=== PATIENT | male | born 1945 | race Caucasian/White ===

== ENCOUNTER 2021-07-26 17:08 | Inpatient (IN) ==
[2021-07-26 17:46] LABS: POC Blood Urea Nitrogen 93 mg/dL (6-20); POC CO2 18 mmol/L (22-30); POC Calcium, Ionized 1.18 mmEq/L (1.16-1.32); POC Chloride 107 mEq/L (96-108); POC Creatinine 5.4 mg/dL (0.6-1.2); POC Glucose, Random 152 mg/dL (70-105); POC Hematocrit 30 % (41-55); POC Potassium 5.1 mEql/L (3.3-5.1); POC Sodium 138 mEq/L (133-145)
[2021-07-26] MEDS ORDERED: IPRATROPIUM/ALBUTEROL 3 ML AMPUL.NEB NEB ONE (18:12)
[2021-07-26] MEDS ORDERED: methylPREDNISolone SOD SUCC 125 MG/2 ML VIAL IV ONE (18:12)
[2021-07-26 18:17] LABS: Basophils # (Auto) 0.04 K/mcL (0.00-0.30); Basophils % (Auto) 0.5 % (0.0-2.0); Eosinophils # (Auto) 0.22 K/mcL (0.00-0.70); Eosinophils % (Auto) 2.7 % (0.0-7.0); Hematocrit 28.4 % (40.1-51.0); Hemoglobin 9.2 g/dL (13.7-17.5); Lymphocytes # (Auto) 0.88 K/mcL (1.50-4.80); Lymphocytes % (Auto) 10.9 % (15.5-49.0); Mean Cell Volume 84.3 fL (80.0-100.0); Mean Corpuscular HGB Conc 32.4 g/dL (31.0-36.0); Mean Platelet Volume 10.3 fL (7.4-10.4); Monocytes # (Auto) 0.73 K/mcL (0.10-0.90); Monocytes % (Auto) 9.1 % (1.0-12.0); Neutrophils % (Auto) 76.8 % (38.0-78.0); Platelet Count 189 K/mcL (140-440); RBC 3.37 M/mcL (4.63-6.08); Red Cell Distribution Width 21.1 % (11.5-14.5); WBC 8.1 K/mcL (4.5-11.0)
[2021-07-26 18:54] LABS: ALT/SGPT 120 U/L (<40); AST/SGOT 96 U/L (<40); Albumin 3.8 gm/dL (3.2-5.2); Albumin/Globulin Ratio 1.4 (1.0-2.3); Alkaline Phosphatase 74 U/L (39-117); Bilirubin,Total 0.5 mg/dL (0.1-1.0); Blood Urea Nitrogen 72 mg/dL (8-23); Calcium 8.7 mg/dL (8.6-10.4); Carbon Dioxide 17 mmol/L (22-30); Chloride 104 mmol/L (96-108); Globulin 2.7 gm/dL (2.2-3.7); Glomerular Filtration Rate 11; Glucose 152 mg/dL (70-105)
[2021-07-26 19:00] LABS: Prothrombin Time 32.8 sec (11.9-14.5)
--- NOTE | 2021-07-26 20:35 | Emergency Department Note ---
HPI <Tamiko Maxwell PA-C - Last Filed: 07/26/21 21:41> General Chief complaint: Shortness of Breath/Dyspnea Stated complaint: sob Time Seen by Provider: 07/26/21 17:14 Source: patient Mode of arrival: ambulatory Limitations: no limitations History of Present Illness HPI Narrative: Narrative: This patient with a history of COPD who has been feeling progressively short of breath for the last week. He did see his primary care provider today who requested he come to the emergency department. Patient was noted to be quite tachypneic with mildly decreased O2 saturations in the low 90s. Patient reports he has not felt febrile or chilled. He is not any nausea vomiting. Denies stool changes. He did have some labs drawn at his regular doctor's office and reports there were some problems with his kidneys, but he is not sure about specifics. He does take Coumadin secondary to atrial fibrillation. Denies any prior cardiac history to include myocardial infarction. He was formerly a smoker and has been told by his regular doctor that he will likely need oxygen soon. At this time he is not on oxygen. He has previously had an echocardiogram and cardiac stress test in the last 5 years. He denies any prior history of congestive heart failure. He does take furosemide which he believes is for leg swelling. Related Data Home Medications Medication Instructions Recorded Confirmed lisinopril 40 mg tablet 40 mg PO QDAY 07/19/21 07/27/21 omeprazole 40 mg capsule,delayed 40 mg PO QDAY 07/19/21 07/27/21 release amlodipine 10 mg tablet 10 mg PO QDAY 07/26/21 07/27/21 ascorbate calcium (vitamin C) 500 500 mg PO QDAY 07/26/21 07/27/21 mg tablet fluticasone 250 mcg-salmeterol 50 1 inh INHALATION BID PRN 07/26/21 07/27/21 mcg/dose blistr powdr for inhalation (Advair Diskus) lorazepam 0.5 mg tablet 0.25 - 0.5 mg PO PRN PRN 07/26/21 07/27/21 magnesium oxide,aspartate,citr 400 mg PO QDAY 07/26/21 07/27/21 (Triple Magnesium Complex) multivitamin with minerals-folic 0.4 tab PO QDAY 07/26/21 07/27/21 acid 0.4 mg tablet Previous Rx's Medication Instructions Recorded clonidine HCl 0.1 mg tablet 0.1 mg PO BID #180 tab 12/04/20 finasteride 5 mg tablet 5 mg PO QDAY #90 tab 12/04/20 furosemide 40 mg tablet 40 mg PO QAM #90 tab 12/04/20 montelukast 10 mg tablet 10 mg PO QDAY #90 tab 12/04/20 (Singulair) potassium chloride 10 mEq 10 meq PO BID #180 tab 12/04/20 tablet,extended release (Klor-Con) tamsulosin 0.4 mg capsule 0.4 mg PO QHS #90 cap 12/04/20 fluticasone propionate 50 2 spray INTRANASAL QDAY #16 g 01/09/21 mcg/actuation nasal spray,suspension (Allergy Relief (fluticasone)) zolpidem 5 mg tablet 5 mg PO QHS #90 tab 04/04/21 metoprolol succinate 50 mg capsule 50 mg PO BID #60 ea 04/23/21 sprinkle, ext. release 24 hr warfarin 4 mg tablet 4 mg PO QDAY #30 tab 04/23/21 Allergies Allergy/AdvReac Type Severity Reaction Status Date / Time peanut Allergy Severe Swelling Verified 07/26/21 23:06 of Lip/Tongue/Throat Penicillins Allergy Severe angioedema Verified 07/26/21 23:06 bupropion [From Wellbutrin] Allergy Intermediate Hives Verified 07/26/21 23:06 ipratropium [From Atrovent] Allergy Unknown Shortness Verified 07/26/21 23:06 of Breath alcohol AdvReac Unknown Addiction; Verified 07/26/21 23:06 per patient "I'm an alcoholic for [employer] s[employer]." Review of Systems <Tamiko Maxwell PA-C - Last Filed: 07/26/21 21:41> ROS ROS Narrative: Narrative: Pertinent positives and negatives as noted in HPI. All other systems reviewed and negative. PFSH <Tamiko Maxwell PA-C - Last Filed: 07/26/21 21:41> Narrative Patient History Narrative: Narrative: Medical/Surgical/Family History All Active Problems (Updated 07/26/21 @ 22:45 by Steven Baeza MD) Acute bronchitis (Chronic) Foreign body in ear (Chronic) Allergic conjunctivitis (Chronic) COPD (chronic obstructive pulmonary disease) (Chronic) Sleep apnea (Chronic) Asthma (Chronic) DDD (degenerative disc disease) (Chronic) SBO (small bowel obstruction) (Chronic) Hypertension (Chronic) Carpal tunnel syndrome (Chronic) Hyperlipidemia (Chronic) Pneumonia (Chronic) Adenomatous colon polyp (Chronic) Ejection fraction < 50% (Chronic) 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) History of colonoscopy (Chronic ~04/19/13) Joint pain (Chronic) Stiffness in joint (Chronic) Encounter for long-term (current) use of other medications (Chronic) Mitral regurgitation (Chronic) Atrial fibrillation (Chronic) Pharyngitis (Chronic) Varicose veins of both lower extremities (Acute) Venous stasis ulcer limited to breakdown of skin with varicose veins (Acute) Lacrimal gland inflammation (Acute) Asthma with exacerbation (Acute) Initial Medicare annual wellness visit (Acute) Nausea (Acute) Asymptomatic peripheral vascular disease (Acute) Sinusitis, chronic (Acute) Chest pain due to coronary artery disease (Acute) Bilateral foot pain (Acute) Pedal edema (Acute) Seasonal allergies (Acute) Acute bronchitis (Acute) Insomnia (Acute) Plantar fasciitis of right foot (Acute) Nocturia associated with benign prostatic hyperplasia (Acute) Microscopic hematuria (Acute) Bladder neoplasm (Acute) Bladder mass (Acute) Chronic anticoagulation (Acute) Bladder neoplasm (Acute) Hypoxia (Acute) Acute renal failure (Acute) COPD with acute exacerbation (Acute) Renal failure (ARF), acute on chronic (Acute) Medication induced coagulopathy (Acute) Hydronephrosis due to obstructive malignant bladder cancer (Acute) Medical History Acute bronchitis Adenomatous colon polyp Allergic dermatitis Allergic rhinitis Asthma Atrial fibrillation Bundle branch block, right Carpal tunnel syndrome COPD (chronic obstructive pulmonary disease) DDD (degenerative disc disease) DDD (degenerative disc disease), lumbar Diverticulosis Ejection fraction < 50% Encounter for long-term (current) use of other medications Encounter for long-term (current) use of other medications Erectile dysfunction Hematuria Hyperlipidemia Hyperlipidemia Hypertension Joint pain Mitral regurgitation Moderate mitral regurgitation Obesity, morbid Plantar fasciitis of right foot Pneumonia PTSD (post-traumatic stress disorder) PVD (peripheral vascular disease) SBO (small bowel obstruction) Sinus bradycardia Sinusitis, acute Sinusitis, chronic Sleep apnea Spine pain, cervical Stiffness in joint Surgical History Coronary atherosclerosis of bypass graft History of colonoscopy (~04/19/13) History of gastric bypass (~12/2013) Family History Father COPD (chronic obstructive pulmonary disease) Other HTN (hypertension) Social History Smoking Status: Former smoker Alcohol Intake Frequency: former alcohol drinker Substance Use: does not use Exam <Tamiko Maxwell PA-C - Last Filed: 07/26/21 21:41> Narrative Narrative: Narrative: Vital signs noted General: mild distress. Skin: Warm. Dry. No rash. Normal color. Eyes: PERRL. EOMI. Mouth: Membranes moist. Normal inspection. Neck: Good ROM. No meningeal signs. Supple. Cardiovascular: Irregularly irregular rate. No murmur. Respiratory: Tachypnea. Breath sounds diminished throughout. Gastrointestinal: Abdomen soft. No tenderness. No distention. Normal bowel sounds. No rebound tenderness or guarding. Back: Normal inspection. No CVA tenderness. No midline tenderness. Extremities: No tenderness. No swelling. No erythema. No edema. Good peripheral pulses x 4 Neurological: No focal neurological deficits observed. Alert. Oriented x 3 General Limitations: no limitations Course <Tamiko Maxwell PA-C - Last Filed: 07/26/21 21:41> Course Course Narrative: An IV is established and the patient is medicated with IV Solu-Medrol for COPD exacerbation. He is also given 3 sequential DuoNeb treatments. He feels improved after this and his tachypnea has markedly improved. Labs are ordered and reviewed. Patient is noted to have a marked elevation in creatinine of 5.4. Last month creatinine was 1.7. BUN is currently 89 and was previously 23. Troponin is elevated at 0.04. BUN is 4498. White count is unremarkable. EKG shows atrial fibrillation with right bundle branch block. Rate is 77. QRS complexes are wide and irregular intervals. Chest x-ray shows small right pleural effusion. In review of the patient's medical history he does recall that he is following with urology due to urinary complications with an identified bladder mass. He did have cystoscopy last month which identified 2 masses in the left lateral wall of the bladder. These are encroaching on the left outlet of the ureter as well as the bladder neck. He was scheduled to have surgery for tumor removal but that procedure was delayed due to the surgeon becoming temporarily unavailable. I did discuss the patient with the hospitalist as well as nephrology who feel that the patient will need emergent urology services for tumor removal as it is now causing obstruction and renal failure. Writing Center Director Dr. Baeza felt that the patient would need access to nephrology services should his renal function continued to decline. Patient is pending transfer. I did speak with the urologist through [facility] in [place] who did not feel that the patient warranted urologic services. He did feel that any obstructive process could be mitigated with nephrostomy tubes if necessary. CT of the abdomen pelvis without contrast is pending. Patient signed out to attending physician. Please see that note for disposition and discharge Vital Signs Vital signs: Vital Signs Temperature 97.8 F 07/26/21 17:09 Pulse Rate 94 H 07/26/21 17:09 Respiratory Rate 24 H 07/26/21 17:09 Blood Pressure 109/67 07/26/21 17:09 Pulse Oximetry (%) 94 07/26/21 17:09 Temperature 97.4 F 07/27/21 04:07 Pulse Rate 89 07/27/21 04:07 Respiratory Rate 20 07/27/21 04:07 Blood Pressure 82/60 07/27/21 04:07 Pulse Oximetry (%) 93 07/27/21 04:07 MDM <Tamiko Maxwell PA-C - Last Filed: 07/26/21 21:41> MDM Narrative Medical decision making narrative: Narrative: Lab Data Result diagrams: 07/26/21 17:31 07/26/21 17:31 Labs: Lab Results 07/26/21 07/26/21 07/26/21 Range/Units 17:31 17:31 17:31 WBC 8.1 (4.5-11.0) K/mcL RBC 3.37 L (4.63-6.08) M/mcL Hgb 9.2 L (13.7-17.5) g/dL Hct 28.4 L (40.1-51.0) % POC Hct 30 L (41-55) % MCV 84.3 (80.0-100.0) fL MCH 27.3 (26.0-34.0) pg MCHC 32.4 (31.0-36.0) g/dL RDW 21.1 H (11.5-14.5) % Plt Count 189 (140-440) K/mcL MPV 10.3 (7.4-10.4) fL Neut % (Auto) 76.8 (38.0-78.0) % Lymph % (Auto) 10.9 L (15.5-49.0) % [place] % (Auto) 9.1 (1.0-12.0) % Eos % (Auto) 2.7 (0.0-7.0) % Baso % (Auto) 0.5 (0.0-2.0) % Lymph # (Auto) 0.88 L (1.50-4.80) K/mcL [place] # (Auto) 0.73 (0.10-0.90) K/mcL Eos # (Auto) 0.22 (0.00-0.70) K/mcL Baso # (Auto) 0.04 (0.00-0.30) K/mcL Absolute Neutrophils 6.18 (1.80-8.00) K/mcL PT (11.9-14.5) sec INR (0.9-1.1) POC Sodium 138 (133-145) mEq/L Sodium (133-145) mmol/L POC Potassium 5.1 (3.3-5.1) mEql/L Potassium (3.3-5.1) mmol/L POC Chloride 107 (96-108) mEq/L Chloride (96-108) mmol/L Carbon Dioxide (22-30) mmol/L POC Total CO2 18 L (22-30) mmol/L Anion Gap (8.0-16.0) POC BUN 93 H (6-20) mg/dL BUN (8-23) mg/dL Creatinine (0.7-1.2) mg/dL POC Creatinine 5.4 H* (0.6-1.2) mg/dL GFR Calculation Glucose (70-105) mg/dL POC Glucose 152 H (70-105) mg/dL Calcium (8.6-10.4) mg/dL POC WB Ioniz Calcium 1.18 (1.16-1.32) mmEq/L Total Bilirubin (0.1-1.0) mg/dL AST (<40) U/L ALT (<40) U/L Alkaline Phosphatase (39-117) U/L Troponin T 0.04 H* (<0.03) ng/mL NT-Pro-B Natriuret Pep 4498.0 H (<450.0) pg/mL Total Protein (5.9-8.4) gm/dL Albumin (3.2-5.2) gm/dL Globulin (2.2-3.7) gm/dL Albumin/Globulin Ratio (1.0-2.3) Urine Color Urine Appearance (Clear) Urine pH (5.0-9.0) Ur Specific [place] (1.000-1.035) Urine Protein (Negative) mg/dL Urine Glucose (UA) (Negative) mg/dL Urine Ketones (Negative) mg/dL Urine Occult Blood (Negative) mg/dL Urine Nitrate (Negative) Urine Bilirubin (Negative) mg/dL Urine Urobilinogen mg/dL Ur Leukocyte Esterase (Negative) /uL Urine RBC (0-3) /hpf Urine WBC (0-4) /hpf Ur Squamous Epith Cells (0-4) /hpf Urine Bacteria (0) /hpf Hyaline Casts (0-2) /lph Urine Mucus (None) /hpf Ur Culture Indicated? 07/26/21 07/26/21 07/26/21 Range/Units 17:31 17:31 21:20 WBC (4.5-11.0) K/mcL RBC (4.63-6.08) M/mcL Hgb (13.7-17.5) g/dL Hct (40.1-51.0) % POC Hct (41-55) % MCV (80.0-100.0) fL MCH (26.0-34.0) pg MCHC (31.0-36.0) g/dL RDW (11.5-14.5) % Plt Count (140-440) K/mcL MPV (7.4-10.4) fL Neut % (Auto) (38.0-78.0) % Lymph % (Auto) (15.5-49.0) % [place] % (Auto) (1.0-12.0) % Eos % (Auto) (0.0-7.0) % Baso % (Auto) (0.0-2.0) % Lymph # (Auto) (1.50-4.80) K/mcL [place] # (Auto) (0.10-0.90) K/mcL Eos # (Auto) (0.00-0.70) K/mcL Baso # (Auto) (0.00-0.30) K/mcL Absolute Neutrophils (1.80-8.00) K/mcL PT 32.8 H (11.9-14.5) sec INR 3.0 H (0.9-1.1) POC Sodium (133-145) mEq/L Sodium 137 (133-145) mmol/L POC Potassium (3.3-5.1) mEql/L Potassium 5.1 (3.3-5.1) mmol/L POC Chloride (96-108) mEq/L Chloride 104 (96-108) mmol/L Carbon Dioxide 17 L (22-30) mmol/L POC Total CO2 (22-30) mmol/L Anion Gap 16.0 (8.0-16.0) POC BUN (6-20) mg/dL BUN 72 H (8-23) mg/dL Creatinine 4.7 H (0.7-1.2) mg/dL POC Creatinine (0.6-1.2) mg/dL GFR Calculation 11 Glucose 152 H (70-105) mg/dL POC Glucose (70-105) mg/dL Calcium 8.7 (8.6-10.4) mg/dL POC WB Ioniz Calcium (1.16-1.32) mmEq/L Total Bilirubin 0.5 (0.1-1.0) mg/dL AST 96 H (<40) U/L ALT 120 H (<40) U/L Alkaline Phosphatase 74 (39-117) U/L Troponin T (<0.03) ng/mL NT-Pro-B Natriuret Pep (<450.0) pg/mL Total Protein 6.5 (5.9-8.4) gm/dL Albumin 3.8 (3.2-5.2) gm/dL Globulin 2.7 (2.2-3.7) gm/dL Albumin/Globulin Ratio 1.4 (1.0-2.3) Urine Color Yellow Urine Appearance Hazy A (Clear) Urine pH 5.0 (5.0-9.0) Ur Specific [place] 1.012 (1.000-1.035) Urine Protein Negative (Negative) mg/dL Urine Glucose (UA) Negative (Negative) mg/dL Urine Ketones Negative (Negative) mg/dL Urine Occult Blood 0.20 (Negative) mg/dL Urine Nitrate Negative (Negative) Urine Bilirubin Negative (Negative) mg/dL Urine Urobilinogen Negative mg/dL Ur Leukocyte Esterase Negative (Negative) /uL Urine RBC 72 H (0-3) /hpf Urine WBC 1 (0-4) /hpf Ur Squamous Epith Cells < 1 (0-4) /hpf Urine Bacteria None (0) /hpf Hyaline Casts 7 H (0-2) /lph Urine Mucus Few A (None) /hpf Ur Culture Indicated? No ED POC Tests ED POC Tests: SARIKA - SARS Antigen Negative Discharge Plan Patient/Caregiver Discharge Instructions Pt seen by FAST FOOD TEAM MEMBER/PA only: No Clinical Impression: Acute renal failure, COPD with acute exacerbation Patient Disposition: Xfer As Inpt ([facility]) Discharge Date/Time: 07/26/21 22:55
--- NOTE | 2021-07-26 21:55 | Nephrology Consult Note ---
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 Chief Complaint: [SOB] This patient was previously evaluated by [facility] urology as outlined below: Abner is a 76-year-old male with a remote history of smoking. He quit 25 years ago. He has resultant COPD. He also has a history of atrial fibrillation for which he is chronically anticoagulated with warfarin. 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 Cystoscopy was performed in the office today which confirmed this finding. 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 We discussed the need to go to the operating room for transurethral section of bladder tumor with instillation of gemcitabine 2 g.. For this procedure he would need to stop his anticoagulation a minimum of 4 to 5 days prior to the procedure. He would also need to be off of it for at least 4 to 5 days after the procedure. During the procedure he would go to the operating room and under general anesthesia I would look through the urethra into the bladder. He may need urethral dilation. We would then remove the tumor seen at cystoscopy. This is done with a small electric loop where we both remove and cauterize time he may need to have a Pérez catheter in place for period of time procedure. Risks include bleeding, infection, damage to the urethra and to the bladder, possible bladder perforation, need for further treatment and/or surgery, possible need for Pérez catheter, postoperative urgency, frequency and hematuria, as well as small risks of heart attack, stroke and . There are also increased risk of blood clots due to stopping his coagulation. There are also risk to anesthesia that he will discuss separately with the anesthesia provider prior to the procedure. The concern is the rapid deterioration in GFR as shown below: Serum Creatinine The change in GFR is due to the development of BILATERAL OBSTRUCTION or a decline in the function of the non-obstructed kidney due to CHF/high dose Lisinopril/ NSAIDs. IT TURNS OUT, NEITHER CT SHOWS HYDRONEPHROSIS SO I SUSPECT ADVERSE EFFECT OF ACEi DEHYDRATION, and occasional NSAID use. He also has a mild metabolic acidosis with AG = 16 and K 5.1 mEq/L. Laboratory Tests 07/26/21 17:31 WBC 8.1 Hgb 9.2 L Hct 28.4 L MCV 84.3 Plt Count 189 Eos % (Auto) 2.7 07/26/21 17:31 PT 32.8 H INR 3.0 H 07/26/21 07/26/21 17:31 17:31 Sodium 137 Potassium 5.1 Chloride 104 Carbon Dioxide 17 L BUN 72 H Creatinine 4.7 H GFR Calculation 11 Glucose 152 H Calcium 8.7 ALT 120 H NT-Pro-B Natriuret Pep 4498.0 H Albumin 3.8 07/26/21 14:07 Urine Color Yellow Urine Clarity Clear Urine pH 5.5 Ur Specific [place] 1.020 Urine Protein Negative Urine Ketones Negative Urine Blood Moderate A Urine Nitrate Negative Ur Leukocyte Esterase Negative Urine RBC 25-50 A Urine WBC 0-5 A Ur Epithelial Cells Few Urine Bacteria Occ A Urine Mucus Trace Ur Oval Fat Bodies 0-5 A Urine Creatinine 200 Protein/Creatinin Ratio Normal Urine Glucose Negative Vital Signs Temp Pulse Resp BP Pulse Ox 07/26/21 22:02 88 95 07/26/21 22:00 89 130/73 93 07/26/21 21:31 94 H 119/70 95 07/26/21 21:28 95 H 176/66 100 07/26/21 21:07 96 H 23 H 94 07/26/21 21:01 94 H 18 178/142 93 07/26/21 20:52 94 H 26 H 93 07/26/21 20:48 94 H 24 H 152/98 93 07/26/21 19:39 94 H 100 07/26/21 19:31 98 H 98/57 95 07/26/21 19:05 68 90/44 100 07/26/21 19:02 64 82/52 100 07/26/21 18:32 69 124/106 99 07/26/21 18:03 72 129/102 94 07/26/21 17:41 85 102/58 95 07/26/21 17:37 81 102/58 100 07/26/21 17:19 80 109/67 100 07/26/21 17:09 36.6 C 94 H 24 H 109/67 94 Intake and Output 07/26/21 07/26/21 07/27/21 13:59 21:59 05:59 Output Total 350 Balance -350 Output: Void Amount 350 Other: Weight 127.006 kg Patient Weight 07/27/21 05:59 Weight 127.006 kg I'm told the CT failed to demonstrate bilateral hydro. Therefore admission for IV hydration, withdrawal of ACEi and avoidance of NSAIDs Correction of coagulopathy If there is unilateral hydro as seen previously then urologic or IR intervention is indicated. Laboratory Tests 07/27/21 07/27/21 06:07 06:07 INR 2.7 H Sodium 134 Potassium 5.6 H Chloride 101 Carbon Dioxide 17 L Anion Gap 16.0 BUN 84 H Creatinine 4.2 H GFR Calculation 13 Glucose 172 H Uric Acid 17.7 H Calcium 9.0 Phosphorus 4.6 H Magnesium 2.6 H Lactate Dehydrogenase 231 H Chief complaint: SOB Reason for consult: ARF on CKD 3 cc:: CC: Review of Systems All systems: reviewed and no additional remarkable complaints except as stated Constitutional Constitutional: Present snoring; Absent chills, fatigue, fever(s) or headache(s) EENT Eyes: Present as per HPI Cardiovascular Cardiovascular: Present leg edema; Absent irregular heart rhythm or radiating jaw, neck or arm pain Respiratory Respiratory: Present cough Gastrointestinal Gastrointestinal: Absent abdominal pain, change in bowel habits, constipation or loose stools Genitourinary Genitourinary: hematuria Musculoskeletal Musculoskeletal: Absent muscle cramps or muscle weakness Integumentary Integumentary: Present unusual bruising Neurological Neurological: Present as per HPI; Absent abnormal speech, confusion, dizziness, frequent falls or headache(s) Psychiatric Psychiatric: Present as per HPI; Absent anxiety, auditory hallucinations or behavioral changes Endocrine Endocrine: Present fatigue; Absent polydipsia Hematologic/Lymphatic Hematologic/Lymphatic: Present easy bruising Allergic/Immunologic Allergic/Immunologic: Present as per HPI PFSH PFSH All Active Problems (Updated 07/27/21 @ 08:50 by Steven Baeza MD) Medication induced coagulopathy (Acute) Renal failure (ARF), acute on chronic (Acute) Hypertension (Chronic) Bladder mass (Acute) Atrial fibrillation (Chronic) Acute bronchitis (Chronic) Foreign body in ear (Chronic) Allergic conjunctivitis (Chronic) COPD (chronic obstructive pulmonary disease) (Chronic) Sleep apnea (Chronic) Asthma (Chronic) DDD (degenerative disc disease) (Chronic) SBO (small bowel obstruction) (Chronic) Carpal tunnel syndrome (Chronic) Hyperlipidemia (Chronic) Pneumonia (Chronic) Adenomatous colon polyp (Chronic) Ejection fraction < 50% (Chronic) 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) History of colonoscopy (Chronic ~04/19/13) Joint pain (Chronic) Stiffness in joint (Chronic) Encounter for long-term (current) use of other medications (Chronic) Mitral regurgitation (Chronic) Pharyngitis (Chronic) Varicose veins of both lower extremities (Acute) Venous stasis ulcer limited to breakdown of skin with varicose veins (Acute) Lacrimal gland inflammation (Acute) Asthma with exacerbation (Acute) Initial Medicare annual wellness visit (Acute) Nausea (Acute) Asymptomatic peripheral vascular disease (Acute) Sinusitis, chronic (Acute) Chest pain due to coronary artery disease (Acute) Bilateral foot pain (Acute) Pedal edema (Acute) Seasonal allergies (Acute) Acute bronchitis (Acute) Insomnia (Acute) Plantar fasciitis of right foot (Acute) Nocturia associated with benign prostatic hyperplasia (Acute) Microscopic hematuria (Acute) Bladder neoplasm (Acute) Chronic anticoagulation (Acute) Bladder neoplasm (Acute) Hypoxia (Acute) Acute renal failure (Acute) COPD with acute exacerbation (Acute) Medical History Acute bronchitis Adenomatous colon polyp Allergic dermatitis Allergic rhinitis Asthma Atrial fibrillation Bundle branch block, right Carpal tunnel syndrome COPD (chronic obstructive pulmonary disease) DDD (degenerative disc disease) DDD (degenerative disc disease), lumbar Diverticulosis Ejection fraction < 50% Encounter for long-term (current) use of other medications Encounter for long-term (current) use of other medications Erectile dysfunction Hematuria Hyperlipidemia Hyperlipidemia Hypertension Joint pain Mitral regurgitation Moderate mitral regurgitation Obesity, morbid Plantar fasciitis of right foot Pneumonia PTSD (post-traumatic stress disorder) PVD (peripheral vascular disease) SBO (small bowel obstruction) Sinus bradycardia Sinusitis, acute Sinusitis, chronic Sleep apnea Spine pain, cervical Stiffness in joint Surgical History Coronary atherosclerosis of bypass graft History of colonoscopy (~04/19/13) History of gastric bypass (~12/2013) Family History Father COPD (chronic obstructive pulmonary disease) Other HTN (hypertension) Social History household members: spouse marital status: service: Yes ([employer] - Disabled 10/24) occupational status: disabled other: ETOH recovery Mar 28 1991 physical activity: swimming frequency: 3-4 times per week smoking status start date: 08/24/1959 smoking status stop date: 08/24/94 alcohol intake frequency: former alcohol drinker substance use type: does not use MEDS/ALLERGIES Home Medications and Allergies Home Medications Medication Instructions Recorded Confirmed Type clonidine HCl 0.1 mg tablet 0.1 mg PO BID #180 tab 12/04/20 07/27/21 Rx finasteride 5 mg tablet 5 mg PO QDAY #90 tab 12/04/20 07/27/21 Rx furosemide 40 mg tablet 40 mg PO QAM #90 tab 12/04/20 07/27/21 Rx montelukast 10 mg tablet 10 mg PO QDAY #90 tab 12/04/20 07/27/21 Rx (Singulair) potassium chloride 10 mEq 10 meq PO BID #180 tab 12/04/20 07/27/21 Rx tablet,extended release (Klor-Con) tamsulosin 0.4 mg capsule 0.4 mg PO QHS #90 cap 12/04/20 07/27/21 Rx fluticasone propionate 50 2 spray INTRANASAL QDAY #16 g 01/09/21 07/27/21 Rx mcg/actuation nasal spray,suspension (Allergy Relief (fluticasone)) zolpidem 5 mg tablet 5 mg PO QHS #90 tab 04/04/21 07/27/21 Rx metoprolol succinate 50 mg capsule 50 mg PO BID #60 ea 04/23/21 07/27/21 Rx sprinkle, ext. release 24 hr warfarin 4 mg tablet 4 mg PO QDAY #30 tab 04/23/21 07/27/21 Rx lisinopril 40 mg tablet 40 mg PO QDAY 07/19/21 07/27/21 History omeprazole 40 mg capsule,delayed 40 mg PO QDAY 07/19/21 07/27/21 History release amlodipine 10 mg tablet 10 mg PO QDAY 07/26/21 07/27/21 History ascorbate calcium (vitamin C) 500 500 mg PO QDAY 07/26/21 07/27/21 History mg tablet fluticasone 250 mcg-salmeterol 50 1 inh INHALATION BID PRN 07/26/21 07/27/21 History mcg/dose blistr powdr for inhalation (Advair Diskus) lorazepam 0.5 mg tablet 0.25 - 0.5 mg PO PRN PRN 07/26/21 07/27/21 History magnesium oxide,aspartate,citr 400 mg PO QDAY 07/26/21 07/27/21 History (Triple Magnesium Complex) multivitamin with minerals-folic 0.4 tab PO QDAY 07/26/21 07/27/21 History acid 0.4 mg tablet Allergies Allergy/AdvReac Type Severity Reaction Status Date / Time peanut Allergy Severe Swelling Verified 07/26/21 23:06 of Lip/Tongue/Throat Penicillins Allergy Severe angioedema Verified 07/26/21 23:06 bupropion [From Wellbutrin] Allergy Intermediate Hives Verified 07/26/21 23:06 ipratropium [From Atrovent] Allergy Unknown Shortness Verified 07/26/21 23:06 of Breath alcohol AdvReac Unknown Addiction; Verified 07/26/21 23:06 per patient "I'm an alcoholic for Chriust sakes." Physical Examination Vital Signs Vital signs: Temp Pulse Resp BP Pulse Ox 36.6 C 95 H 23 H 176/66 100 07/26/21 17:09 07/26/21 21:28 07/26/21 21:07 07/26/21 21:28 07/26/21 21:28 General Appearance General appearance: appears started age, obese and chronically ill EENT EENT: PERRL, mucous membranes dry and vision intact Neck Neck: no JVD, no carotid bruit and supple Respiratory Respiratory: clear Cardiovascular Cardiology: no murmurs, no rub, no gallops, edema, regular rhythm and normal S1 Gastrointestinal Gastrointestinal: normoactive bowel sounds and obese Integumentary Integumentary: ecchymotic Neurologic Neurologic: no focal deficit, no asterixis, alert and oriented x3 and CN 3-12 intact Musculoskeletal Musculoskeletal: deformities (buffalo hump and suprascapular adipose collections bilaterally) Psychiatric Psychiatric: mood/affect appropriate Results Lab Results Result Diagrams: 07/27/21 06:07 07/27/21 06:07 Lab results: Most recent lab results Calcium 8.7 mg/dL (8.6-10.4) 07/26/21 17:31 A/P Assessment and plan (1) Renal failure (ARF), acute on chronic: Assessment and plan: Almost surly adverse effect of high dose lisinopril and prn advil, no obstruction. Carry on with no lisinopril, IV hydration with NS and trend labs Status: Acute (2) Bladder mass: Assessment and plan: Surgery after reversal of warfarin Status: Acute (3) Atrial fibrillation: Assessment and plan: Hold anticoagulation till post op Status: Chronic Qualifiers: Atrial fibrillation type: longstanding persistent Qualified Code(s): I48.11 - Longstanding persistent atrial fibrillation (4) Medication induced coagulopathy: Assessment and plan: INR improved 3.4 to 2.7 O/N with holding warfarin Status: Acute (5) Hypertension: Assessment and plan: Over treated. Hold RASSI due to mild hyperkalemia and ARF on CKD 3 Status: Chronic Qualifiers: Hypertension type: essential hypertension Qualified Code(s): I10 - Essential (primary) hypertension Narrative A/P Narrative: 1. No RASSI 2. No NSAIDS 3. Low K diet and no KCl 4. Hydrate with NS 5. Expect 48-72 hours till back to baseline GFR 6. Repeat Echo 7. If GFR fails to improve, do renal U/S to look for URETERAL JETS Time Spent With Patient Time: Total time spent is greater than 50% in coordination of care (as documented) at patient's floor/unit and/or counseling patient: Total time spent with greater than 50% in coordination of care (as documented) at patient's floor/unit and/or counseling patient:: Greater than 35 minutes
--- NOTE | 2021-07-26 22:17 | Internal Med History&Physical ---
HPI History of Present Illness Patient information: Note initiated : 07/26/21 at 10:17 pm Service Date, if different from initiated Date: [] Patient: Mitch Bustillos a 76 y/o M admitted on for sob. Chief Complaint: [] History of present illness: Mr. Bustillos is a 76 year old M with a history of COPD, HTN, CKD, CAD/A. fib on anticoagulation who presents to the ER with increasing shortness of breath worsening over the last week. Patient denies sick contacts. He endorses low- grade fever. Initial work-up in the ER was consistent with creatinine elevation at 5.3 however chest imaging no acute process except for bilateral effusions, nephrology was consulted. Patient also carries a history of bladder cancer and is due for operative intervention on July 31. CT scan abdomen did not reveal obstructive process. Urology at [place] was consulted and advised no active urological intervention at this time. Thereafter nephrology service was consulted and recommended hospitalization for management acute renal failure. Patient received bronchodilators and dose of Solu-Medrol in the ER with resultant improvement in shortness of breath. Subsequently hospitalist service was consulted At the time of my evaluation patient is alert and oriented. He was able to answer most the questions. He denies recent changes in medication except for taking occasional NSAIDs/his regular SASHA inhibitor. He endorses to loss of appetite/inability to function due to progressive malaise/fatigue. Review of systems 10 point review system was performed and is negative except for ones discussed above PFSH PFSH All Active Problems (Updated 07/27/21 @ 08:50 by Steven Baeza MD) Acute bronchitis (Chronic) Foreign body in ear (Chronic) Allergic conjunctivitis (Chronic) COPD (chronic obstructive pulmonary disease) (Chronic) Sleep apnea (Chronic) Asthma (Chronic) DDD (degenerative disc disease) (Chronic) SBO (small bowel obstruction) (Chronic) Hypertension (Chronic) Carpal tunnel syndrome (Chronic) Hyperlipidemia (Chronic) Pneumonia (Chronic) Adenomatous colon polyp (Chronic) Ejection fraction < 50% (Chronic) 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) History of colonoscopy (Chronic ~04/19/13) Joint pain (Chronic) Stiffness in joint (Chronic) Encounter for long-term (current) use of other medications (Chronic) Mitral regurgitation (Chronic) Atrial fibrillation (Chronic) Pharyngitis (Chronic) Varicose veins of both lower extremities (Acute) Venous stasis ulcer limited to breakdown of skin with varicose veins (Acute) Lacrimal gland inflammation (Acute) Asthma with exacerbation (Acute) Initial Medicare annual wellness visit (Acute) Nausea (Acute) Asymptomatic peripheral vascular disease (Acute) Sinusitis, chronic (Acute) Chest pain due to coronary artery disease (Acute) Bilateral foot pain (Acute) Pedal edema (Acute) Seasonal allergies (Acute) Acute bronchitis (Acute) Insomnia (Acute) Plantar fasciitis of right foot (Acute) Nocturia associated with benign prostatic hyperplasia (Acute) Microscopic hematuria (Acute) Bladder neoplasm (Acute) Bladder mass (Acute) Chronic anticoagulation (Acute) Bladder neoplasm (Acute) Hypoxia (Acute) Acute renal failure (Acute) COPD with acute exacerbation (Acute) Renal failure (ARF), acute on chronic (Acute) Medication induced coagulopathy (Acute) Medical History Acute bronchitis Adenomatous colon polyp Allergic dermatitis Allergic rhinitis Asthma Atrial fibrillation Bundle branch block, right Carpal tunnel syndrome COPD (chronic obstructive pulmonary disease) DDD (degenerative disc disease) DDD (degenerative disc disease), lumbar Diverticulosis Ejection fraction < 50% Encounter for long-term (current) use of other medications Encounter for long-term (current) use of other medications Erectile dysfunction Hematuria Hyperlipidemia Hyperlipidemia Hypertension Joint pain Mitral regurgitation Moderate mitral regurgitation Obesity, morbid Plantar fasciitis of right foot Pneumonia PTSD (post-traumatic stress disorder) PVD (peripheral vascular disease) SBO (small bowel obstruction) Sinus bradycardia Sinusitis, acute Sinusitis, chronic Sleep apnea Spine pain, cervical Stiffness in joint Surgical History Coronary atherosclerosis of bypass graft History of colonoscopy (~04/19/13) History of gastric bypass (~12/2013) Family History Father COPD (chronic obstructive pulmonary disease) Other HTN (hypertension) Social History household members: spouse marital status: service: Yes ([employer] - Disabled 10/24) occupational status: disabled other: ETOH recovery Mar 28 1991 physical activity: swimming frequency: 3-4 times per week smoking status start date: 08/24/1959 smoking status stop date: 08/24/94 alcohol intake frequency: former alcohol drinker substance use type: does not use MEDS/ALLERGIES Home Medications and Allergies Home Medications Medication Instructions Recorded Confirmed Type clonidine HCl 0.1 mg tablet 0.1 mg PO BID #180 tab 12/04/20 07/27/21 Rx finasteride 5 mg tablet 5 mg PO QDAY #90 tab 12/04/20 07/27/21 Rx furosemide 40 mg tablet 40 mg PO QAM #90 tab 12/04/20 07/27/21 Rx montelukast 10 mg tablet 10 mg PO QDAY #90 tab 12/04/20 07/27/21 Rx (Singulair) potassium chloride 10 mEq 10 meq PO BID #180 tab 12/04/20 07/27/21 Rx tablet,extended release (Klor-Con) tamsulosin 0.4 mg capsule 0.4 mg PO QHS #90 cap 12/04/20 07/27/21 Rx fluticasone propionate 50 2 spray INTRANASAL QDAY #16 g 01/09/21 07/27/21 Rx mcg/actuation nasal spray,suspension (Allergy Relief (fluticasone)) zolpidem 5 mg tablet 5 mg PO QHS #90 tab 04/04/21 07/27/21 Rx metoprolol succinate 50 mg capsule 50 mg PO BID #60 ea 04/23/21 07/27/21 Rx sprinkle, ext. release 24 hr warfarin 4 mg tablet 4 mg PO QDAY #30 tab 04/23/21 07/27/21 Rx lisinopril 40 mg tablet 40 mg PO QDAY 07/19/21 07/27/21 History omeprazole 40 mg capsule,delayed 40 mg PO QDAY 07/19/21 07/27/21 History release amlodipine 10 mg tablet 10 mg PO QDAY 07/26/21 07/27/21 History ascorbate calcium (vitamin C) 500 500 mg PO QDAY 07/26/21 07/27/21 History mg tablet fluticasone 250 mcg-salmeterol 50 1 inh INHALATION BID PRN 07/26/21 07/27/21 History mcg/dose blistr powdr for inhalation (Advair Diskus) lorazepam 0.5 mg tablet 0.25 - 0.5 mg PO PRN PRN 07/26/21 07/27/21 History magnesium oxide,aspartate,citr 400 mg PO QDAY 07/26/21 07/27/21 History (Triple Magnesium Complex) multivitamin with minerals-folic 0.4 tab PO QDAY 07/26/21 07/27/21 History acid 0.4 mg tablet Allergies Allergy/AdvReac Type Severity Reaction Status Date / Time peanut Allergy Severe Swelling Verified 07/26/21 23:06 of Lip/Tongue/Throat Penicillins Allergy Severe angioedema Verified 07/26/21 23:06 bupropion [From Wellbutrin] Allergy Intermediate Hives Verified 07/26/21 23:06 ipratropium [From Atrovent] Allergy Unknown Shortness Verified 07/26/21 23:06 of Breath alcohol AdvReac Unknown Addiction; Verified 07/26/21 23:06 per patient "I'm an alcoholic for Chriust sakes." EXAM Constitutional Vitals: Temp Pulse Resp BP Pulse Ox 97.8 F 88 23 H 130/73 95 07/26/21 17:09 07/26/21 22:02 07/26/21 21:07 07/26/21 22:00 07/26/21 22:02 Anxious Head normocephalic Oral cavity moist No ear or nose discharge Eye no subconjunctival pallor, movement symmetrical S1-S2 irregular Nonlabored breathing Nondistended nontender abdomen Lower extremity no cyanosis clubbing or joint swelling Skin no suspicious lesion Psych anxious but no hallucination Neuro normal higher function GCS 15 DATA Data Completed and Pending Labs: Labs from last 24 hours 07/26/21 07/26/21 07/26/21 21:20 17:31 17:31 WBC RBC Hgb Hct POC Hct MCV MCH MCHC RDW Plt Count MPV Neut % (Auto) Lymph % (Auto) [place] % (Auto) Eos % (Auto) Baso % (Auto) Lymph # (Auto) [place] # (Auto) Eos # (Auto) Baso # (Auto) Absolute Neutrophils PT 32.8 H INR 3.0 H POC Sodium Sodium 137 POC Potassium Potassium 5.1 POC Chloride Chloride 104 Carbon Dioxide 17 L POC Total CO2 Anion Gap 16.0 POC BUN BUN 72 H Creatinine 4.7 H POC Creatinine GFR Calculation 11 Glucose 152 H POC Glucose Calcium 8.7 POC WB Ioniz Calcium Total Bilirubin 0.5 AST 96 H ALT 120 H Alkaline Phosphatase 74 Troponin T NT-Pro-B Natriuret Pep Total Protein 6.5 Albumin 3.8 Globulin 2.7 Albumin/Globulin Ratio 1.4 Urine Color Pending Urine Appearance Pending Urine pH Pending Ur Specific [place] Pending Urine Protein Pending Urine Glucose (UA) Pending Urine Ketones Pending Urine Occult Blood Pending Urine Nitrate Pending Urine Bilirubin Pending Urine Urobilinogen Pending Ur Leukocyte Esterase Pending 07/26/21 07/26/21 07/26/21 17:31 17:31 17:31 WBC 8.1 RBC 3.37 L Hgb 9.2 L Hct 28.4 L POC Hct 30 L MCV 84.3 MCH 27.3 MCHC 32.4 RDW 21.1 H Plt Count 189 MPV 10.3 Neut % (Auto) 76.8 Lymph % (Auto) 10.9 L [place] % (Auto) 9.1 Eos % (Auto) 2.7 Baso % (Auto) 0.5 Lymph # (Auto) 0.88 L [place] # (Auto) 0.73 Eos # (Auto) 0.22 Baso # (Auto) 0.04 Absolute Neutrophils 6.18 PT INR POC Sodium 138 Sodium POC Potassium 5.1 Potassium POC Chloride 107 Chloride Carbon Dioxide POC Total CO2 18 L Anion Gap POC BUN 93 H BUN Creatinine POC Creatinine 5.4 H* GFR Calculation Glucose POC Glucose 152 H Calcium POC WB Ioniz Calcium 1.18 Total Bilirubin AST ALT Alkaline Phosphatase Troponin T 0.04 H* NT-Pro-B Natriuret Pep 4498.0 H Total Protein Albumin Globulin Albumin/Globulin Ratio Urine Color Urine Appearance Urine pH Ur Specific [place] Urine Protein Urine Glucose (UA) Urine Ketones Urine Occult Blood Urine Nitrate Urine Bilirubin Urine Urobilinogen Ur Leukocyte Esterase A/P Narrative A/P Narrative: * Acute kidney injury, creatinine 5.3, likely secondary prerenal state, nephrology consulted, hold SASHA inhibitor. Continue crystalloids * Acute exacerbation of COPD continue steroids/bronchodilators * History of bladder cancer follows up with Dr. Bishop urology * Severe CAD/coronary calcification -recommend outpatient cardiology follow-up on discharge * Anticoagulation on Coumadin. INR therapeutic * A. fib rate controlled on beta-lorenza * Hypertension on clonidine/amlodipine. Hold SASHA inhibitor * BPH Flomax/finasteride * Anxiety disorder continue home dose lorazepam * GERD continue PPI Plan * Inpatient admission * Nephrology consult * Gentle hydration * IV steroids * Hold SASHA inhibitor * Pre-existing medical condition management on home medications * Nutrition support/therapies as indicated Time Spent With Patient Time: Total time spent is greater than 50% in coordination of care (as documented) at patient's floor/unit and/or counseling patient:
[2021-07-26 22:43] LABS: Appearance,Urine HAZY (Clear); Bilirubin,Urine Negative (Negative); Color,Urine YELLOW; Culture Indicated,Urine No; Glucose,Urine (UA) Negative (Negative); Ketones,Urine Negative (Negative); Leukocyte Esterase,Urine Negative /uL (Negative); Mucus,Urine FEW /hpf; Nitrate,Urine Negative (Negative); Protein,Urine Negative (Negative); Specific Gravity,Urine 1.012 (1.000-1.035); Urine Hyaline Cast 7 /lph (0-2); Urine RBC 72 /hpf (0-3); Urine Squamous Epithelial Cell < 1 /hpf (0-4); Urine WBC 1 /hpf (0-4); Urobilinogen,Urine Negative
--- NOTE | 2021-07-26 22:56 | Emergency Department Note ---
HPI General Chief complaint: Shortness of Breath/Dyspnea Stated complaint: sob Time Seen by Provider: 07/26/21 17:14 Source: patient Mode of arrival: ambulatory Limitations: no limitations History of Present Illness HPI Narrative: Narrative: Patient is a 76-year-old male who was signed out to me by the NURYS, and I agree with work-up and plan thus far. Please see their note for further details, but in short the patient presented with shortness of breath, and findings consistent with COPD exacerbation and/or CHF in addition to ANJALI. Due to his history of bladder mass issues that was being worked up by urology, there was concern for possible obstruction. Due to the recommendation of our control valve technician here, we did consult urology and was able to discuss the case with them in [place]. They had low concern for any need for emergent surgery, and if there was any evidence of obstruction on CT scan then nephrostomy tubes likely would be the first step which can be done via interventional radiology if needed. At signout, CT scan was pending. CT scan results returned, showing no evidence of hydronephrosis or obstructive process. With no other significant findings, I did discuss the case again with our control valve technician here, who stated that the patient likely could stay here with IV fluids and stopping his lisinopril and monitoring his creatinine over the next short time to see if we can get it to respond and improved. Otherwise the patient likely would need dialysis. I discussed case the hospitalist who agreed to the plan of admission as well. Patient is agreeable to the plan of staying here, and has no further concerns or questions. Related Data Home Medications Medication Instructions Recorded Confirmed lisinopril 40 mg tablet 40 mg PO QDAY 07/19/21 07/26/21 omeprazole 40 mg capsule,delayed 40 mg PO QDAY 07/19/21 07/26/21 release amlodipine 10 mg tablet 10 mg PO QDAY 07/26/21 07/26/21 ascorbate calcium (vitamin C) 500 500 mg PO QDAY 07/26/21 07/26/21 mg tablet fluticasone 250 mcg-salmeterol 50 1 inh INHALATION BID PRN 07/26/21 07/26/21 mcg/dose blistr powdr for inhalation (Advair Diskus) lorazepam 0.5 mg tablet 0.25 - 0.5 mg PO PRN PRN 07/26/21 07/26/21 magnesium oxide,aspartate,citr 400 mg PO QDAY 07/26/21 07/26/21 (Triple Magnesium Complex) multivitamin with minerals-folic 0.4 tab PO QDAY 07/26/21 07/26/21 acid 0.4 mg tablet Previous Rx's Medication Instructions Recorded clonidine HCl 0.1 mg tablet 0.1 mg PO BID #180 tab 12/04/20 finasteride 5 mg tablet 5 mg PO QDAY #90 tab 12/04/20 furosemide 40 mg tablet 40 mg PO QAM #90 tab 12/04/20 montelukast 10 mg tablet 10 mg PO QDAY #90 tab 12/04/20 (Singulair) potassium chloride 10 mEq 10 meq PO BID #180 tab 12/04/20 tablet,extended release (Klor-Con) tamsulosin 0.4 mg capsule 0.4 mg PO QHS #90 cap 12/04/20 fluticasone propionate 50 2 spray INTRANASAL QDAY #16 g 01/09/21 mcg/actuation nasal spray,suspension (Allergy Relief (fluticasone)) zolpidem 5 mg tablet 5 mg PO QHS #90 tab 04/04/21 metoprolol succinate 50 mg capsule 50 mg PO BID #60 ea 04/23/21 sprinkle, ext. 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 alcoholic for Chriust sakes." Review of Systems ROS ROS Narrative: Narrative: PFSH Narrative Patient History Narrative: Narrative: Medical/Surgical/Family History All Active Problems (Updated 07/26/21 @ 22:45 by Steven Baeza MD) Acute bronchitis (Chronic) Foreign body in ear (Chronic) Allergic conjunctivitis (Chronic) COPD (chronic obstructive pulmonary disease) (Chronic) Sleep apnea (Chronic) Asthma (Chronic) DDD (degenerative disc disease) (Chronic) SBO (small bowel obstruction) (Chronic) Hypertension (Chronic) Carpal tunnel syndrome (Chronic) Hyperlipidemia (Chronic) Pneumonia (Chronic) Adenomatous colon polyp (Chronic) Ejection fraction < 50% (Chronic) 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) History of colonoscopy (Chronic ~04/19/13) Joint pain (Chronic) Stiffness in joint (Chronic) Encounter for long-term (current) use of other medications (Chronic) Mitral regurgitation (Chronic) Atrial fibrillation (Chronic) Pharyngitis (Chronic) Varicose veins of both lower extremities (Acute) Venous stasis ulcer limited to breakdown of skin with varicose veins (Acute) Lacrimal gland inflammation (Acute) Asthma with exacerbation (Acute) Initial Medicare annual wellness visit (Acute) Nausea (Acute) Asymptomatic peripheral vascular disease (Acute) Sinusitis, chronic (Acute) Chest pain due to coronary artery disease (Acute) Bilateral foot pain (Acute) Pedal edema (Acute) Seasonal allergies (Acute) Acute bronchitis (Acute) Insomnia (Acute) Plantar fasciitis of right foot (Acute) Nocturia associated with benign prostatic hyperplasia (Acute) Microscopic hematuria (Acute) Bladder neoplasm (Acute) Bladder mass (Acute) Chronic anticoagulation (Acute) Bladder neoplasm (Acute) Hypoxia (Acute) Acute renal failure (Acute) COPD with acute exacerbation (Acute) Renal failure (ARF), acute on chronic (Acute) Medication induced coagulopathy (Acute) Hydronephrosis due to obstructive malignant bladder cancer (Acute) Medical History Acute bronchitis Adenomatous colon polyp Allergic dermatitis Allergic rhinitis Asthma Atrial fibrillation Bundle branch block, right Carpal tunnel syndrome COPD (chronic obstructive pulmonary disease) DDD (degenerative disc disease) DDD (degenerative disc disease), lumbar Diverticulosis Ejection fraction < 50% Encounter for long-term (current) use of other medications Encounter for long-term (current) use of other medications Erectile dysfunction Hematuria Hyperlipidemia Hyperlipidemia Hypertension Joint pain Mitral regurgitation Moderate mitral regurgitation Obesity, morbid Plantar fasciitis of right foot Pneumonia PTSD (post-traumatic stress disorder) PVD (peripheral vascular disease) SBO (small bowel obstruction) Sinus bradycardia Sinusitis, acute Sinusitis, chronic Sleep apnea Spine pain, cervical Stiffness in joint Surgical History Coronary atherosclerosis of bypass graft History of colonoscopy (~04/19/13) History of gastric bypass (~12/2013) Family History Father COPD (chronic obstructive pulmonary disease) Other HTN (hypertension) Social History Smoking Status: Former smoker Alcohol Intake Frequency: former alcohol drinker Substance Use: does not use Exam Narrative Narrative: Narrative: General Limitations: no limitations Course Vital Signs Vital signs: Vital Signs Temperature 97.8 F 07/26/21 17:09 Pulse Rate 94 H 07/26/21 17:09 Respiratory Rate 24 H 07/26/21 17:09 Blood Pressure 109/67 07/26/21 17:09 Pulse Oximetry (%) 94 07/26/21 17:09 Temperature 97.8 F 07/26/21 17:09 Pulse Rate 95 H 07/26/21 22:21 Respiratory Rate 23 H 07/26/21 21:07 Blood Pressure 130/73 07/26/21 22:00 Pulse Oximetry (%) 97 07/26/21 22:21 MDM MDM Narrative Medical decision making narrative: Narrative: Lab Data Result diagrams: 07/26/21 17:31 07/26/21 17:31 Labs: Lab Results 07/26/21 07/26/21 07/26/21 Range/Units 17:31 17:31 17:31 WBC 8.1 (4.5-11.0) K/mcL RBC 3.37 L (4.63-6.08) M/mcL Hgb 9.2 L (13.7-17.5) g/dL Hct 28.4 L (40.1-51.0) % POC Hct 30 L (41-55) % MCV 84.3 (80.0-100.0) fL MCH 27.3 (26.0-34.0) pg MCHC 32.4 (31.0-36.0) g/dL RDW 21.1 H (11.5-14.5) % Plt Count 189 (140-440) K/mcL MPV 10.3 (7.4-10.4) fL Neut % (Auto) 76.8 (38.0-78.0) % Lymph % (Auto) 10.9 L (15.5-49.0) % [place] % (Auto) 9.1 (1.0-12.0) % Eos % (Auto) 2.7 (0.0-7.0) % Baso % (Auto) 0.5 (0.0-2.0) % Lymph # (Auto) 0.88 L (1.50-4.80) K/mcL [place] # (Auto) 0.73 (0.10-0.90) K/mcL Eos # (Auto) 0.22 (0.00-0.70) K/mcL Baso # (Auto) 0.04 (0.00-0.30) K/mcL Absolute Neutrophils 6.18 (1.80-8.00) K/mcL PT (11.9-14.5) sec INR (0.9-1.1) POC Sodium 138 (133-145) mEq/L Sodium (133-145) mmol/L POC Potassium 5.1 (3.3-5.1) mEql/L Potassium (3.3-5.1) mmol/L POC Chloride 107 (96-108) mEq/L Chloride (96-108) mmol/L Carbon Dioxide (22-30) mmol/L POC Total CO2 18 L (22-30) mmol/L Anion Gap (8.0-16.0) POC BUN 93 H (6-20) mg/dL BUN (8-23) mg/dL Creatinine (0.7-1.2) mg/dL POC Creatinine 5.4 H* (0.6-1.2) mg/dL GFR Calculation Glucose (70-105) mg/dL POC Glucose 152 H (70-105) mg/dL Calcium (8.6-10.4) mg/dL POC WB Ioniz Calcium 1.18 (1.16-1.32) mmEq/L Total Bilirubin (0.1-1.0) mg/dL AST (<40) U/L ALT (<40) U/L Alkaline Phosphatase (39-117) U/L Troponin T 0.04 H* (<0.03) ng/mL NT-Pro-B Natriuret Pep 4498.0 H (<450.0) pg/mL Total Protein (5.9-8.4) gm/dL Albumin (3.2-5.2) gm/dL Globulin (2.2-3.7) gm/dL Albumin/Globulin Ratio (1.0-2.3) Urine Color Urine Appearance (Clear) Urine pH (5.0-9.0) Ur Specific [place] (1.000-1.035) Urine Protein (Negative) mg/dL Urine Glucose (UA) (Negative) mg/dL Urine Ketones (Negative) mg/dL Urine Occult Blood (Negative) mg/dL Urine Nitrate (Negative) Urine Bilirubin (Negative) mg/dL Urine Urobilinogen mg/dL Ur Leukocyte Esterase (Negative) /uL Urine RBC (0-3) /hpf Urine WBC (0-4) /hpf Ur Squamous Epith Cells (0-4) /hpf Urine Bacteria (0) /hpf Hyaline Casts (0-2) /lph Urine Mucus (None) /hpf Ur Culture Indicated? 07/26/21 07/26/21 07/26/21 Range/Units 17:31 17:31 21:20 WBC (4.5-11.0) K/mcL RBC (4.63-6.08) M/mcL Hgb (13.7-17.5) g/dL Hct (40.1-51.0) % POC Hct (41-55) % MCV (80.0-100.0) fL MCH (26.0-34.0) pg MCHC (31.0-36.0) g/dL RDW (11.5-14.5) % Plt Count (140-440) K/mcL MPV (7.4-10.4) fL Neut % (Auto) (38.0-78.0) % Lymph % (Auto) (15.5-49.0) % [place] % (Auto) (1.0-12.0) % Eos % (Auto) (0.0-7.0) % Baso % (Auto) (0.0-2.0) % Lymph # (Auto) (1.50-4.80) K/mcL [place] # (Auto) (0.10-0.90) K/mcL Eos # (Auto) (0.00-0.70) K/mcL Baso # (Auto) (0.00-0.30) K/mcL Absolute Neutrophils (1.80-8.00) K/mcL PT 32.8 H (11.9-14.5) sec INR 3.0 H (0.9-1.1) POC Sodium (133-145) mEq/L Sodium 137 (133-145) mmol/L POC Potassium (3.3-5.1) mEql/L Potassium 5.1 (3.3-5.1) mmol/L POC Chloride (96-108) mEq/L Chloride 104 (96-108) mmol/L Carbon Dioxide 17 L (22-30) mmol/L POC Total CO2 (22-30) mmol/L Anion Gap 16.0 (8.0-16.0) POC BUN (6-20) mg/dL BUN 72 H (8-23) mg/dL Creatinine 4.7 H (0.7-1.2) mg/dL POC Creatinine (0.6-1.2) mg/dL GFR Calculation 11 Glucose 152 H (70-105) mg/dL POC Glucose (70-105) mg/dL Calcium 8.7 (8.6-10.4) mg/dL POC WB Ioniz Calcium (1.16-1.32) mmEq/L Total Bilirubin 0.5 (0.1-1.0) mg/dL AST 96 H (<40) U/L ALT 120 H (<40) U/L Alkaline Phosphatase 74 (39-117) U/L Troponin T (<0.03) ng/mL NT-Pro-B Natriuret Pep (<450.0) pg/mL Total Protein 6.5 (5.9-8.4) gm/dL Albumin 3.8 (3.2-5.2) gm/dL Globulin 2.7 (2.2-3.7) gm/dL Albumin/Globulin Ratio 1.4 (1.0-2.3) Urine Color Yellow Urine Appearance Hazy A (Clear) Urine pH 5.0 (5.0-9.0) Ur Specific [place] 1.012 (1.000-1.035) Urine Protein Negative (Negative) mg/dL Urine Glucose (UA) Negative (Negative) mg/dL Urine Ketones Negative (Negative) mg/dL Urine Occult Blood 0.20 (Negative) mg/dL Urine Nitrate Negative (Negative) Urine Bilirubin Negative (Negative) mg/dL Urine Urobilinogen Negative mg/dL Ur Leukocyte Esterase Negative (Negative) /uL Urine RBC 72 H (0-3) /hpf Urine WBC 1 (0-4) /hpf Ur Squamous Epith Cells < 1 (0-4) /hpf Urine Bacteria None (0) /hpf Hyaline Casts 7 H (0-2) /lph Urine Mucus Few A (None) /hpf Ur Culture Indicated? No ED POC Tests ED POC Tests: SARIKA - SARS Antigen Negative Discharge Plan Patient/Caregiver Discharge Instructions Pt seen by WILD LIFE MANAGER/PA only: No Clinical Impression: Acute renal failure, COPD with acute exacerbation Patient Disposition: Xfer As Inpt ([facility]) Follow up with: Mynor Carbajal MD [Primary Care Provider] - Prescriptions: No Action tamsulosin 0.4 mg capsule 0.4 mg PO QHS Qty: 90 4RF montelukast [Singulair] 10 mg tablet 10 mg PO QDAY Qty: 90 3RF finasteride 5 mg tablet 5 mg PO QDAY Qty: 90 4RF clonidine HCl 0.1 mg tablet 0.1 mg PO BID Qty: 180 4RF potassium chloride [Klor-Con 10] 10 mEq tablet extended release 10 meq PO BID Qty: 180 3RF furosemide 40 mg tablet 40 mg PO QAM Qty: 90 4RF fluticasone propionate [Allergy Relief (fluticasone)] 50 mcg/actuation spray,suspension 2 spray INTRANASAL QDAY Qty: 16 3RF Rx Instructions: administer into each nostril zolpidem 5 mg tablet 5 mg PO QHS Qty: 90 0RF Rx Instructions: Must last 3 months. ss metoprolol succinate 50 mg capsule,sprinkle,ER 24hr 50 mg PO BID Qty: 60 6RF warfarin 4 mg tablet 4 mg PO QDAY Qty: 30 6RF omeprazole 40 mg Capsule,Delayed Release(Dr/Ec) 40 mg PO QDAY 0RF lisinopril 40 mg Tablet 40 mg PO QDAY 0RF amlodipine 10 mg Tablet 10 mg PO QDAY 0RF fluticasone propion-salmeterol [Advair Diskus] 250-50 mcg/dose blister with device 1 inh INHALATION BID PRN (Reason: Shortness Of Breath Or Wheezing) 0RF Rx Instructions: Generic please lorazepam 0.5 mg tablet 0.25 - 0.5 mg PO PRN PRN (Reason: anxiety) 0RF ascorbate calcium (vitamin C) 500 mg Tablet 500 mg PO QDAY 0RF multivit with min-folic acid [Adult One Daily Multivitamin] 0.4 mg Tablet 0.4 tab PO QDAY 0RF Triple Magnesium Complex 400 mg magnesium Capsule 400 mg PO QDAY 0RF
[2021-07-26] MEDS ORDERED: MELATONIN 3 MG TABLET PO PRN (23:03)
[2021-07-26] MEDS ORDERED: 0.9 % SODIUM CHLORIDE 1,000 ML IV SCH (23:03)
[2021-07-26] MEDS ORDERED: METOPROLOL TARTRATE 5 MG/5 ML VIAL IV PRN (23:03)
[2021-07-26] MEDS ORDERED: ACETAMINOPHEN 650 MG/65 ML BAG IV PRN (23:03)
[2021-07-26] MEDS ORDERED: MAGNESIUM SULFATE 2 GM/50 ML BAG IV PRN (23:03)
[2021-07-26] MEDS ORDERED: BISACODYL 10 MG SUPP.RECT PR PRN (23:03)
[2021-07-26] MEDS ORDERED: POLYETHYLENE GLYCOL 3350 17 GM PACKET PO PRN (23:03)
[2021-07-26] MEDS ORDERED: ONDANSETRON 4 MG ODT TABLET SL PRN (23:03)
[2021-07-26] MEDS ORDERED: ONDANSETRON 4 MG/2 ML VIAL IV PRN (23:03)
[2021-07-26] MEDS ORDERED: hydrALAZINE 20 MG/ML VIAL IV PRN (23:03)
[2021-07-26] MEDS ORDERED: ACETAMINOPHEN 325 MG TABLET PO PRN (23:03)
--- NOTE | 2021-07-27 06:11 | Cat Scan Report ---
INDICATION: renal failure COMPARISON: Previous CT IVP dated 05/07/2021 TECHNIQUE: Axial images were obtained through the abdomen and pelvis. Sagittally and coronally reformatted images. FINDINGS: Examination was initially interpreted by [facility] Lung bases:No focal pulmonary parenchymal mass or consolidation. There is a small right pleural effusion. There is severe coronary artery calcification Liver:Negative to the limits of noncontrast enhanced examination. Liver contour is smooth without evidence for cirrhosis Gallbladder, bilary:No calcified gallstones. No gallbladder wall thickening. No pericholecystic fluid. No dilated bile ducts Spleen:No splenomegaly Pancreas:No pancreatic mass. No peripancreatic abnormality Adrenal glands:Negative Kidneys,ureters,bladder:No solid renal mass. No hydronephrosis. No obstructing or nonobstructing calculi. No hydroureter. No ureteral calculus. There is bladder wall thickening posterolateral on the left side of bladder. This does not cause left hydronephrosis. This appears essentially unchanged since previous CT IVP. This is consistent with primary bladder neoplasm. There is no bladder calculus. Gastrointestinal:No detectable colonic mass. There is no diverticulitis. Negative small bowel. No mechanical small bowel obstruction. No bowel wall thickening. No focal abnormality. Patient has had a previous bariatric procedure, probably a gastric sleeve. There is no hiatal hernia. Appendix: The appendix is not well visualized. No evidence for appendicitis Vascular:Severe atherosclerotic disease. Abdominal aorta is densely calcified. No abdominal aortic aneurysm. Common iliac arteries, external iliac arteries, common femoral arteries are calcified. No stenoses are possible. There is extensive calcification of the celiac trunk and superior mesenteric artery. Renal arteries are densely calcified and probably stenotic. Lymphatic:No pelvic adenopathy. No pathologic inguinal adenopathy. There is no retroperitoneal or mesenteric adenopathy. Mesentery, peritoneum:No free intraperitoneal fluid. No intra-abdominal abscess. No pneumoperitoneum Reproductive:Prostate is not significantly enlarged Musculoskeletal:Multilevel degenerative disc disease. Sacrum and pelvis are negative. Hips are negative. No anterior abdominal wall or inguinal hernia. IMPRESSION: 1. History of left posterolateral bladder mass. This is essentially unchanged since previous CT IVP dated 05/07/2021. 2. No hydronephrosis or hydroureter 3. Small right pleural effusion 4. Very severe calcified atherosclerotic disease including severe coronary artery disease 5. Multilevel degenerative disc disease. No acute compression fracture 6. Previous bariatric surgery. The exam was performed using radiation dose optimization techniques including, but not limited to, automated exposure control, adjustment of the mA and/or kV according to patient size and use of iterative reconstruction technique. Interpreted and Authenticated by: Chava Pat 07/27/21
[2021-07-27 07:09] LABS: Basophils # (Auto) 0 K/mcL (0.00-0.30); Basophils % (Auto) 0 % (0.0-2.0); Eosinophils # (Auto) 0 K/mcL (0.00-0.70); Eosinophils % (Auto) 0 % (0.0-7.0); Hematocrit 28.2 % (40.1-51.0); Hemoglobin 9.2 g/dL (13.7-17.5); Lymphocytes # (Auto) 0.35 K/mcL (1.50-4.80); Lymphocytes % (Auto) 7.5 % (15.5-49.0); Mean Cell Volume 83.7 fL (80.0-100.0); Mean Corpuscular HGB Conc 32.6 g/dL (31.0-36.0); Mean Platelet Volume 10.2 fL (7.4-10.4); Monocytes # (Auto) 0.04 K/mcL (0.10-0.90); Monocytes % (Auto) 0.9 % (1.0-12.0); Neutrophils % (Auto) 91.6 % (38.0-78.0); Platelet Count 189 K/mcL (140-440); RBC 3.37 M/mcL (4.63-6.08); Red Cell Distribution Width 20.9 % (11.5-14.5); WBC 4.7 K/mcL (4.5-11.0)
[2021-07-27 07:31] LABS: INR 2.7 (0.9-1.1); Prothrombin Time 30.1 sec (11.9-14.5)
[2021-07-27 07:43] LABS: ALT/SGPT 111 U/L (<40); AST/SGOT 81 U/L (<40); Albumin 3.8 gm/dL (3.2-5.2); Albumin/Globulin Ratio 1.2 (1.0-2.3); Alkaline Phosphatase 72 U/L (39-117); Bilirubin,Direct 0.2 mg/dL (<0.3); Bilirubin,Total 0.5 mg/dL (0.1-1.0); Blood Urea Nitrogen 84 mg/dL (8-23); Carbon Dioxide 17 mmol/L (22-30); Chloride 101 mmol/L (96-108); Globulin 3.1 gm/dL (2.2-3.7); Glomerular Filtration Rate 13; Glucose 172 mg/dL (70-105); Lactate Dehydrogenase 231 U/L (135-225); Phosphorous 4.6 mg/dL (2.5-4.5); Triglycerides 58 mg/dL (<150); Uric Acid 17.7 mg/dL (2.5-8.0)
[2021-07-27] MEDS ORDERED: FLUTICASONE/SALMETEROL 250/50 INHALER #14 INH PRN (08:15)
[2021-07-27] MEDS ORDERED: LORazepam 0.5 MG TABLET PO PRN (08:19)
[2021-07-27] MEDS ORDERED: cloNIDine HCL 0.1 MG TABLET PO SCH (09:00)
[2021-07-27] MEDS ORDERED: METOPROLOL SUCCINATE 50 MG TAB.XL.24H PO SCH (09:00)
[2021-07-27] MEDS: MULTIVIT,THER IRON,CA,FA & MIN 1 TABLET PO SCH (09:09)
[2021-07-27] MEDS: FINASTERIDE 5 MG TABLET PO SCH (09:09)
[2021-07-27] MEDS: MONTELUKAST 10 MG TABLET PO SCH (09:09)
[2021-07-27] MEDS: 0.9 % SODIUM CHLORIDE 10 ML SYRINGE IV SCH ×3 (09:10→22:00)
[2021-07-27] MEDS: OMEPRAZOLE 20 MG CAPSULE PO SCH (09:10)
[2021-07-27] MEDS: DOCUSATE SODIUM 100 MG CAPSULE PO SCH ×2 (09:10→21:59)
[2021-07-27] MEDS ORDERED: SODIUM POLYSTYRENE SULFONATE 15 GM/60 ML SUSPENSION PO ONE (11:15)
--- NOTE | 2021-07-27 11:15 | Internal Med Progress Note ---
SUBJECTIVE Subjective Patient information: Note initiated : 07/27/21 at 11:11 am Service Date, if different from initiated Date: [] Patient: Mitch Bustillos 76 y/o M admitted on 07/26/21 for sob. Chief Complaint: [] Interval history: Mr. Bustillos is a 76 year old M with a history of COPD, HTN, CKD, CAD/A. fib on anticoagulation who presents to the ER with increasing shortness of breath worsening over the last week. Patient denies sick contacts. He endorses low- grade fever. Initial work-up in the ER was consistent with creatinine elevation at 5.3 however chest imaging no acute process except for bilateral effusions, nephrology was consulted. Patient also carries a history of bladder cancer and is due for operative intervention on July 31. CT scan abdomen did not reveal obstructive process. Urology at [place] was consulted and advised no active urological intervention at this time. Thereafter nephrology service was consulted and recommended hospitalization for management acute renal failure. Patient received bronchodilators and dose of Solu-Medrol in the ER with resultant improvement in shortness of breath. Subsequently hospitalist service was consulted At the time of my evaluation patient is alert and oriented. He was able to answer most the questions. He denies recent changes in medication except for taking occasional NSAIDs/his regular SASHA inhibitor. He endorses to loss of appetite/inability to function due to progressive malaise/fatigue. 07/27-patient gradually improving. Improved shortness of breath on steroids. Creatinine down to 4.2 with ongoing hydration. SASHA inhibitor is on hold. Nephrology on board. No overnight fever chills or concerns per staff. Continue close monitoring of hemodynamics. Potassium 5.6. Constitutional Vitals: Vital Signs Temp Pulse Resp BP Pulse Ox 97.7 F 90 20 122/69 94 07/27/21 08:01 07/27/21 08:01 07/27/21 08:01 07/27/21 08:01 07/27/21 08:01 Period Temp Pulse Resp BP Sys/Morales Pulse Ox Last 24 Hr 96.4 F-97.8 F 64-98 18-30 82-178/44-142 91-100 Intake and Output 07/26/21 07/27/21 07/27/21 21:59 05:59 13:59 Output Total 350 425 Balance -350 -425 Weight 127.006 kg 127.55 kg Alert oriented Minimally labored breathing on 3 L oxygen No anxiety Pendulous abdomen Intake & Output: Intake & Output 07/26/21 07/27/21 07/27/21 21:59 05:59 13:59 Output Total 350 425 Balance -350 -425 Weight 127.006 kg 127.55 kg Output: Void Amount 350 425 Other: Meal Breakfast Percent of Meal Consumed 100% Feeding Ability Independent Urine Appearance Clear Urine Color Pale # Voids 1 OBJ DATA Labs CBC & Chem 7: 07/27/21 06:07 07/27/21 06:07 Labs: Abnormal Lab Results 07/27/21 07/27/21 07/27/21 06:07 06:07 06:07 RBC 3.37 L Hgb 9.2 L Hct 28.2 L POC Hct RDW 20.9 H Neut % (Auto) 91.6 H Lymph % (Auto) 7.5 L [place] % (Auto) 0.9 L Lymph # (Auto) 0.35 L [place] # (Auto) 0.04 L PT 30.1 H INR 2.7 H Potassium 5.6 H Carbon Dioxide 17 L POC Total CO2 POC BUN BUN 84 H Creatinine 4.2 H POC Creatinine Glucose 172 H POC Glucose Uric Acid 17.7 H Phosphorus 4.6 H Magnesium 2.6 H AST 81 H ALT 111 H Lactate Dehydrogenase 231 H Troponin T NT-Pro-B Natriuret Pep Urine Appearance Urine RBC Hyaline Casts Urine Mucus 07/26/21 07/26/21 07/26/21 21:20 17:31 17:31 RBC Hgb Hct POC Hct RDW Neut % (Auto) Lymph % (Auto) [place] % (Auto) Lymph # (Auto) [place] # (Auto) PT 32.8 H INR 3.0 H Potassium Carbon Dioxide 17 L POC Total CO2 POC BUN BUN 72 H Creatinine 4.7 H POC Creatinine Glucose 152 H POC Glucose Uric Acid Phosphorus Magnesium AST 96 H ALT 120 H Lactate Dehydrogenase Troponin T NT-Pro-B Natriuret Pep Urine Appearance Hazy A Urine RBC 72 H Hyaline Casts 7 H Urine Mucus Few A 07/26/21 07/26/21 07/26/21 17:31 17:31 17:31 RBC 3.37 L Hgb 9.2 L Hct 28.4 L POC Hct 30 L RDW 21.1 H Neut % (Auto) Lymph % (Auto) 10.9 L [place] % (Auto) Lymph # (Auto) 0.88 L [place] # (Auto) PT INR Potassium Carbon Dioxide POC Total CO2 18 L POC BUN 93 H BUN Creatinine POC Creatinine 5.4 H* Glucose POC Glucose 152 H Uric Acid Phosphorus Magnesium AST ALT Lactate Dehydrogenase Troponin T 0.04 H* NT-Pro-B Natriuret Pep 4498.0 H Urine Appearance Urine RBC Hyaline Casts Urine Mucus Meds: Medications Acetaminophen (Acetaminophen 325 Mg Tablet) 650 mg PO Q4-6HP PRN; Protocol PRN Reason: Per Pain Protocol/Fever > 101 Albuterol/Ipratropium (Ipratropium/Albuterol 3 Ml Ampul.Neb) 3 ml NEB Q4HRT [facility] Bisacodyl (Bisacodyl 10 Mg Supp.Rect) 10 mg TN Q2-3DAYS PRN PRN Reason: Constipation Clonidine HCl (Clonidine Hcl 0.1 Mg Tablet) 0.1 mg PO BID [facility] Docusate Sodium (Docusate Sodium 100 Mg Capsule) 100 mg PO BID [facility] Last Admin: 07/27/21 09:10 Dose: 100 mg Documented by: Finasteride (Finasteride 5 Mg Tablet) 5 mg PO QDAY [facility] Last Admin: 07/27/21 09:09 Dose: 5 mg Documented by: Hydralazine HCl (Hydralazine 20 Mg/Ml Vial) 10 mg IV Q4-6HP PRN PRN Reason: Hypertension Acetaminophen (Ofirmev) 650 mg in 65 mls @ 130 mls/hr IV Q6HP PRN; Protocol PRN Reason: Per Pain Protocol/Fever > 101 Magnesium Sulfate (Magnesium Sulfate) 2 gm in 50 mls @ 50 mls/hr IV UD PRN PRN Reason: MG = or < 1.7 Sodium Chloride (Sodium Chloride 0.9%) 1,000 mls @ 50 mls/hr IV .Q20H [facility] Stop: 07/29/21 11:02 Last Admin: 07/26/21 23:35 Dose: 50 mls/hr Documented by: Iron Carb/Multivit/Business Consult/Folic Acid (Multivit,Ther Iron,Ca,Fa & Min 1 Tablet) 1 tab PO DAILY [facility] Last Admin: 07/27/21 09:09 Dose: 1 tab Documented by: Lorazepam (Lorazepam 0.5 Mg Tablet) 0.25 - 0.5 mg PO DAILYP PRN PRN Reason: Anxiety Melatonin (Melatonin 3 Mg Tablet) 3 mg PO HSP PRN PRN Reason: Insomnia Methylprednisolone Sodium Succinate (Methylprednisolone Sod Succ 125 Mg/2 Ml Vial) 62.5 mg IV Q8 [facility] Metoprolol Succinate (Metoprolol Succinate 50 Mg Tab.Xl.24h) 50 mg PO BID [facility] Last Admin: 07/27/21 09:09 Dose: 50 mg Documented by: Metoprolol Tartrate (Metoprolol Tartrate 5 Mg/5 Ml Vial) 5 mg IV Q5M PRN PRN Reason: Heart Rate > 140 bpm Montelukast Sodium (Montelukast 10 Mg Tablet) 10 mg PO QDAY [facility] Last Admin: 07/27/21 09:09 Dose: 10 mg Documented by: Omeprazole (Omeprazole 20 Mg Capsule) 40 mg PO ACB [facility] Last Admin: 07/27/21 09:10 Dose: 40 mg Documented by: Ondansetron HCl (Ondansetron 4 Mg Odt Tablet) 4 mg SL Q4-6HP PRN; Protocol PRN Reason: Nausea And Vomiting Ondansetron HCl (Ondansetron 4 Mg/2 Ml Vial) 4 mg IV Q4-6HP PRN; Protocol PRN Reason: Nausea And Vomiting Pneumococcal Polyvalent Vaccine (Pneumococcal 23-Maria Guadalupe P-Sac Vac 0.5 Ml Syringe) 0.5 ml IM .ONCE ONE Stop: 07/28/21 10:01 Polyethylene Glycol (Polyethylene Glycol 3350 17 Gm Packet) 17 gm PO DAILYP PRN PRN Reason: Constipation Fluticasone/Salmeterol (Fluticasone/Salmeterol 250/50 Inhaler #14) 1 puff INH BIDP PRN PRN Reason: Shortness Of Breath Or Wheezing Senna/Docusate Sodium (Sennosides/Docusate Sodium 1 Tab Tablet) 1 tab PO HS [facility] Sodium Chloride (0.9 % Sodium Chloride 10 Ml Syringe) 10 ml IV Q8 [facility] Last Admin: 07/27/21 09:10 Dose: Not Given Documented by: Tamsulosin HCl (Tamsulosin 0.4 Mg Capsule) 0.4 mg PO QHS [facility] Warfarin Sodium (Warfarin Per Pharmacy) 1 order PO UD DAVID A/P Narrative A/P Narrative: * Acute kidney injury, creatinine 5.3- > 4.2 with hydration. Appears prerenal. Hold SASHA inhibitor. Nephrology on board * Hyperkalemiae secondary to ANJALI/SASHA inhibitor. 5.6. Start Kayexalate * Acute exacerbation of COPD continue steroids/bronchodilators * Acute respiratory failure with hypoxia on 3 L oxygen likely secondary to COPD exacerbation. Await COVID-19 testing * History of bladder cancer follows up with Dr. Bishop urology * Severe CAD/coronary calcification -recommend outpatient cardiology follow-up on discharge * Anticoagulation on Coumadin. INR therapeutic * A. fib rate controlled on beta-lorenza * Hypertension on clonidine/amlodipine. Hold SASHA inhibitor * BPH Flomax/finasteride * Anxiety disorder continue home dose lorazepam * GERD continue PPI Plan * 15 cc Kayexalate * Gentle hydration * IV steroids * Supplemental oxygen. Await COVID-19 testing hold SASHA inhibitor * Pre-existing medical condition management on home medications * Nutrition support/therapies as indicated Time Spent With Patient Time: Total time spent is greater than 50% in coordination of care (as documented) at patient's floor/unit and/or counseling patient: Total time spent with greater than 50% in coordination of care (as documented) at patient's floor/unit and/or counseling patient:: Greater than 35 minutes
[2021-07-27] MEDS: IPRATROPIUM/ALBUTEROL 3 ML AMPUL.NEB NEB SCH ×4 (12:53→22:45)
[2021-07-27] MEDS: methylPREDNISolone SOD SUCC 125 MG/2 ML VIAL IV SCH ×2 (13:59→21:57)
--- NOTE | 2021-07-27 16:50 | EKG ---
[facility] Test Date: 2021-07-26 Pat Name: Mitch Bustillos Department: ED Room: Gender: Male [employer]: zina : [id number] Requested By: Andrei Patel Order Number: [id number] Reading MD: Bert Oquendo Measurements Intervals [place] Rate: 77 P: [place]: QRS: -2 QRSD: 145 T: 20 QT: 415 QTc: 470 Interpretive Statements Atrial fibrillation Right bundle branch block Electronically Signed On 07-27-2021 16:50:51 PST by Bert Oquendo /[id number]
[2021-07-27] MEDS: SENNOSIDES/DOCUSATE SODIUM 1 TAB TABLET PO SCH (21:57)
[2021-07-27] MEDS: TAMSULOSIN 0.4 MG CAPSULE PO SCH (21:57)
[2021-07-27] MEDS: METOPROLOL SUCCINATE 50 MG TAB.XL.24H PO SCH (21:59)
[2021-07-27] MEDS: cloNIDine HCL 0.1 MG TABLET PO SCH (21:59)
[2021-07-28] MEDS: IPRATROPIUM/ALBUTEROL 3 ML AMPUL.NEB NEB SCH ×6 (02:46→22:55)
[2021-07-28] MEDS: 0.9 % SODIUM CHLORIDE 10 ML SYRINGE IV SCH ×3 (05:11→21:44)
[2021-07-28] MEDS: methylPREDNISolone SOD SUCC 125 MG/2 ML VIAL IV SCH ×3 (05:11→21:42)
[2021-07-28 06:59] LABS: Basophils # (Auto) 0.01 K/mcL (0.00-0.30); Basophils % (Auto) 0.1 % (0.0-2.0); Eosinophils # (Auto) 0 K/mcL (0.00-0.70); Eosinophils % (Auto) 0 % (0.0-7.0); Hematocrit 27.4 % (40.1-51.0); Hemoglobin 8.7 g/dL (13.7-17.5); Lymphocytes # (Auto) 0.34 K/mcL (1.50-4.80); Lymphocytes % (Auto) 4.2 % (15.5-49.0); Mean Cell Volume 84.6 fL (80.0-100.0); Mean Corpuscular HGB Conc 31.8 g/dL (31.0-36.0); Monocytes # (Auto) 0.16 K/mcL (0.10-0.90); Neutrophils % (Auto) 93.7 % (38.0-78.0); Platelet Count 190 K/mcL (140-440); RBC 3.24 M/mcL (4.63-6.08); Red Cell Distribution Width 20.9 % (11.5-14.5); WBC 8.1 K/mcL (4.5-11.0)
[2021-07-28] MEDS: OMEPRAZOLE 20 MG CAPSULE PO SCH (07:08)
[2021-07-28 07:12] LABS: INR 2.8 (0.9-1.1); Prothrombin Time 31.2 sec (11.9-14.5)
[2021-07-28 07:29] LABS: ALT/SGPT 93 U/L (<40); AST/SGOT 63 U/L (<40); Albumin 3.7 gm/dL (3.2-5.2); Albumin/Globulin Ratio 1.2 (1.0-2.3); Alkaline Phosphatase 68 U/L (39-117); Bilirubin,Direct 0.2 mg/dL (<0.3); Bilirubin,Total 0.5 mg/dL (0.1-1.0); Blood Urea Nitrogen 84 mg/dL (8-23); Calcium 8.9 mg/dL (8.6-10.4); Carbon Dioxide 20 mmol/L (22-30); Chloride 103 mmol/L (96-108); Glomerular Filtration Rate 14; Glucose 243 mg/dL (70-105); Lactate Dehydrogenase 233 U/L (135-225); Phosphorous 4.4 mg/dL (2.5-4.5); Triglycerides 66 mg/dL (<150); Uric Acid 17.9 mg/dL (2.5-8.0)
[2021-07-28] MEDS: MONTELUKAST 10 MG TABLET PO SCH (08:43)
[2021-07-28] MEDS: FINASTERIDE 5 MG TABLET PO SCH (08:43)
[2021-07-28] MEDS: MULTIVIT,THER IRON,CA,FA & MIN 1 TABLET PO SCH (08:43)
[2021-07-28] MEDS: DOCUSATE SODIUM 100 MG CAPSULE PO SCH ×2 (08:44→21:43)
[2021-07-28] MEDS: METOPROLOL SUCCINATE 50 MG TAB.XL.24H PO SCH ×2 (08:52→21:43)
[2021-07-28] MEDS: cloNIDine HCL 0.1 MG TABLET PO SCH (08:52)
[2021-07-28] MEDS: 0.9 % SODIUM CHLORIDE 1,000 ML IV SCH (08:56)
[2021-07-28] MEDS ORDERED: PNEUMOCOCCAL 23-VAL P-SAC VAC 0.5 ML SYRINGE IM ONE (10:00)
--- NOTE | 2021-07-28 10:00 | Internal Med Progress Note ---
SUBJECTIVE Subjective Patient information: Note initiated : 07/28/21 at 9:55 am Service Date, if different from initiated Date: [] Patient: Mitch Bustillos 76 y/o M admitted on 07/26/21 for sob. Chief Complaint: [] Interval history: Mr. Bustillos is a 76 year old M with a history of COPD, HTN, CKD, CAD/A. fib on anticoagulation who presents to the ER with increasing shortness of breath worsening over the last week. Patient denies sick contacts. He endorses low- grade fever. Initial work-up in the ER was consistent with creatinine elevation at 5.3 however chest imaging no acute process except for bilateral effusions, nephrology was consulted. Patient also carries a history of bladder cancer and is due for operative intervention on July 31. CT scan abdomen did not reveal obstructive process. Urology at [place] was consulted and advised no active urological intervention at this time. Thereafter nephrology service was consulted and recommended hospitalization for management acute renal failure. Patient received bronchodilators and dose of Solu-Medrol in the ER with resultant improvement in shortness of breath. Subsequently hospitalist service was consulted At the time of my evaluation patient is alert and oriented. He was able to answer most the questions. He denies recent changes in medication except for taking occasional NSAIDs/his regular SASAH inhibitor. He endorses to loss of appetite/inability to function due to progressive malaise/fatigue. 07/27-patient gradually improving. Improved shortness of breath on steroids. Creatinine down to 4.2 with ongoing hydration. SASHA inhibitor is on hold. Nephrology on board. No overnight fever chills or concerns per staff. Continue close monitoring of hemodynamics. Potassium 5.6. 07/28-patient doing a lot better. Creatinine down to 3.8. Gentle crystalloids, hold SASHA inhibitor/diuretics. Systolics around 100. INR therapeutic. Potassium down to 4.9 status post Kayexalate. No fever chills nausea vomiting. Constitutional Vitals: Vital Signs Temp Pulse Resp BP Pulse Ox 97.6 F 86 16 93/52 94 07/28/21 06:31 07/28/21 09:00 07/28/21 09:00 07/28/21 09:00 07/28/21 09:00 Period Temp Pulse Resp BP Sys/Morales Pulse Ox Last 24 Hr 97.2 F-98.8 F 66-104 16-20 93-142/51-126 91-99 Intake and Output 07/27/21 07/28/21 07/28/21 21:59 05:59 13:59 Output Total 500 Balance -500 Weight 127.414 kg Morbidly obese No lymphedema Nonlabored breathing No anxiety Intake & Output: Intake & Output 07/27/21 07/28/21 07/28/21 21:59 05:59 13:59 Output Total 500 Balance -500 Weight 127.414 kg Output: Void Amount 500 Other: Urine Appearance Clear Clear Urine Color Pale Pale Urine Odor Normal # Voids 2 2 1 OBJ DATA Labs CBC & Chem 7: 07/28/21 06:02 07/28/21 06:01 Labs: Abnormal Lab Results 07/28/21 07/28/21 07/28/21 06:02 06:01 06:01 RBC 3.24 L Hgb 8.7 L Hct 27.4 L POC Hct RDW 20.9 H Neut % (Auto) 93.7 H Lymph % (Auto) 4.2 L [place] % (Auto) Lymph # (Auto) 0.34 L [place] # (Auto) PT 31.2 H INR 2.8 H Potassium Carbon Dioxide 20 L POC Total CO2 POC BUN BUN 84 H Creatinine 3.8 H POC Creatinine Glucose 243 H POC Glucose Uric Acid 17.9 H Phosphorus Magnesium 2.8 H AST 63 H ALT 93 H Lactate Dehydrogenase 233 H Troponin T NT-Pro-B Natriuret Pep Urine Appearance Urine RBC Hyaline Casts Urine Mucus 07/27/21 07/27/21 07/27/21 06:07 06:07 06:07 RBC 3.37 L Hgb 9.2 L Hct 28.2 L POC Hct RDW 20.9 H Neut % (Auto) 91.6 H Lymph % (Auto) 7.5 L [place] % (Auto) 0.9 L Lymph # (Auto) 0.35 L [place] # (Auto) 0.04 L PT 30.1 H INR 2.7 H Potassium 5.6 H Carbon Dioxide 17 L POC Total CO2 POC BUN BUN 84 H Creatinine 4.2 H POC Creatinine Glucose 172 H POC Glucose Uric Acid 17.7 H Phosphorus 4.6 H Magnesium 2.6 H AST 81 H ALT 111 H Lactate Dehydrogenase 231 H Troponin T NT-Pro-B Natriuret Pep Urine Appearance Urine RBC Hyaline Casts Urine Mucus 07/26/21 07/26/21 07/26/21 21:20 17:31 17:31 RBC Hgb Hct POC Hct RDW Neut % (Auto) Lymph % (Auto) [place] % (Auto) Lymph # (Auto) [place] # (Auto) PT 32.8 H INR 3.0 H Potassium Carbon Dioxide 17 L POC Total CO2 POC BUN BUN 72 H Creatinine 4.7 H POC Creatinine Glucose 152 H POC Glucose Uric Acid Phosphorus Magnesium AST 96 H ALT 120 H Lactate Dehydrogenase Troponin T NT-Pro-B Natriuret Pep Urine Appearance Hazy A Urine RBC 72 H Hyaline Casts 7 H Urine Mucus Few A 07/26/21 07/26/21 07/26/21 17:31 17:31 17:31 RBC 3.37 L Hgb 9.2 L Hct 28.4 L POC Hct 30 L RDW 21.1 H Neut % (Auto) Lymph % (Auto) 10.9 L [place] % (Auto) Lymph # (Auto) 0.88 L [place] # (Auto) PT INR Potassium Carbon Dioxide POC Total CO2 18 L POC BUN 93 H BUN Creatinine POC Creatinine 5.4 H* Glucose POC Glucose 152 H Uric Acid Phosphorus Magnesium AST ALT Lactate Dehydrogenase Troponin T 0.04 H* NT-Pro-B Natriuret Pep 4498.0 H Urine Appearance Urine RBC Hyaline Casts Urine Mucus Meds: Medications Acetaminophen (Acetaminophen 325 Mg Tablet) 650 mg PO Q4-6HP PRN; Protocol PRN Reason: Per Pain Protocol/Fever > 101 Albuterol/Ipratropium (Ipratropium/Albuterol 3 Ml Ampul.Neb) 3 ml NEB Q4HRT [facility] Last Admin: 07/28/21 06:51 Dose: 3 ml Documented by: Bisacodyl (Bisacodyl 10 Mg Supp.Rect) 10 mg HI Q2-3DAYS PRN PRN Reason: Constipation Clonidine HCl (Clonidine Hcl 0.1 Mg Tablet) 0.1 mg PO BID [facility] Last Admin: 07/28/21 08:52 Dose: Not Given Documented by: Docusate Sodium (Docusate Sodium 100 Mg Capsule) 100 mg PO BID [facility] Last Admin: 07/28/21 08:44 Dose: 100 mg Documented by: Finasteride (Finasteride 5 Mg Tablet) 5 mg PO QDAY [facility] Last Admin: 07/28/21 08:43 Dose: 5 mg Documented by: Hydralazine HCl (Hydralazine 20 Mg/Ml Vial) 10 mg IV Q4-6HP PRN PRN Reason: Hypertension Acetaminophen (Ofirmev) 650 mg in 65 mls @ 130 mls/hr IV Q6HP PRN; Protocol PRN Reason: Per Pain Protocol/Fever > 101 Magnesium Sulfate (Magnesium Sulfate) 2 gm in 50 mls @ 50 mls/hr IV UD PRN PRN Reason: MG = or < 1.7 Sodium Chloride (Sodium Chloride 0.9%) 1,000 mls @ 50 mls/hr IV .Q20H [facility] Stop: 07/30/21 20:59 Last Admin: 07/28/21 08:56 Dose: 50 mls/hr Documented by: Iron Carb/Multivit/Documentum Consultant/Folic Acid (Multivit,Ther Iron,Ca,Fa & Min 1 Tablet) 1 tab PO DAILY [facility] Last Admin: 07/28/21 08:43 Dose: 1 tab Documented by: Lorazepam (Lorazepam 0.5 Mg Tablet) 0.25 - 0.5 mg PO DAILYP PRN PRN Reason: Anxiety Last Admin: 07/27/21 22:11 Dose: 0.5 mg Documented by: Melatonin (Melatonin 3 Mg Tablet) 3 mg PO HSP PRN PRN Reason: Insomnia Methylprednisolone Sodium Succinate (Methylprednisolone Sod Succ 125 Mg/2 Ml Vial) 62.5 mg IV Q8 [facility] Last Admin: 07/28/21 05:11 Dose: 62.5 mg Documented by: Metoprolol Succinate (Metoprolol Succinate 50 Mg Tab.Xl.24h) 50 mg PO BID [facility] Last Admin: 07/28/21 08:52 Dose: 50 mg Documented by: Metoprolol Tartrate (Metoprolol Tartrate 5 Mg/5 Ml Vial) 5 mg IV Q5M PRN PRN Reason: Heart Rate > 140 bpm Montelukast Sodium (Montelukast 10 Mg Tablet) 10 mg PO QDAY [facility] Last Admin: 07/28/21 08:43 Dose: 10 mg Documented by: Omeprazole (Omeprazole 20 Mg Capsule) 40 mg PO ACB [facility] Last Admin: 07/28/21 07:08 Dose: 40 mg Documented by: Ondansetron HCl (Ondansetron 4 Mg Odt Tablet) 4 mg SL Q4-6HP PRN; Protocol PRN Reason: Nausea And Vomiting Ondansetron HCl (Ondansetron 4 Mg/2 Ml Vial) 4 mg IV Q4-6HP PRN; Protocol PRN Reason: Nausea And Vomiting Pneumococcal Polyvalent Vaccine (Pneumococcal 23-Maria Guadalupe P-Sac Vac 0.5 Ml Syringe) 0.5 ml IM .ONCE ONE Stop: 07/28/21 10:01 Polyethylene Glycol (Polyethylene Glycol 3350 17 Gm Packet) 17 gm PO DAILYP PRN PRN Reason: Constipation Fluticasone/Salmeterol (Fluticasone/Salmeterol 250/50 Inhaler #14) 1 puff INH BIDP PRN PRN Reason: Shortness Of Breath Or Wheezing Senna/Docusate Sodium (Sennosides/Docusate Sodium 1 Tab Tablet) 1 tab PO HS [facility] Last Admin: 07/27/21 21:57 Dose: 1 tab Documented by: Sodium Chloride (0.9 % Sodium Chloride 10 Ml Syringe) 10 ml IV Q8 [facility] Last Admin: 07/28/21 05:11 Dose: 10 ml Documented by: Tamsulosin HCl (Tamsulosin 0.4 Mg Capsule) 0.4 mg PO QHS [facility] Last Admin: 07/27/21 21:57 Dose: 0.4 mg Documented by: Warfarin Sodium (Warfarin Per Pharmacy) 1 order PO UD DAVID A/P Narrative A/P Narrative: * Acute kidney injury prerenal creatinine 5.3- > 4.2-> 3.8. Hold diuretics/SASHA inhibitor. Continue gentle crystalloids nephrology on board * Hyperkalemiae secondary to ANJALI/SASHA inhibitor. 4.9 status post Kayexalate * Acute exacerbation of COPD continue steroids/bronchodilators * Acute respiratory failure with hypoxia on 2 L oxygen likely secondary to COPD exacerbation. Covid negative * History of bladder cancer follows up with Dr. Bishop urology * Severe CAD/coronary calcification -recommend outpatient cardiology follow-up on discharge * Anticoagulation on Coumadin. INR therapeutic * A. fib rate controlled on beta-lorenza * Hypertension on clonidine/amlodipine. Hold SASHA inhibitor * BPH Flomax/finasteride * Anxiety disorder continue home dose lorazepam * GERD continue PPI Plan * Continue steroids/bronchodilators/supplemental oxygen * Hold diuretics/SASHA inhibitor * Pre-existing medical condition management on home medications * Nutrition support/therapies as indicated * Gentle hydration * Possible discharge in 48 hours pending improvement renal function Time Spent With Patient Time: Total time spent is greater than 50% in coordination of care (as documented) at patient's floor/unit and/or counseling patient:
--- NOTE | 2021-07-28 10:50 | Nephrology Progress Note ---
SUBJECTIVE Subjective Patient information: Note initiated : 07/28/21 at 10:43 am Service Date, if different from initiated Date: [] Patient: Mitch Bustillos 76 y/o M admitted on 07/26/21 for sob. Chief Complaint: [ARF on CKD G3] Principal diagnosis: ARF Interval history: 76 yr old admitted with acute rise in serum Cr. Hx of left sided bladder neoplasia but 2 CTs fail to demonstrate any hydronephrosis. BP on low side, diogo this AM so clonidine stopped but Metoprolol succinate 50 mg po BID continued NS 50 cc/hr Major issue in addition to the lowish BP is RAASI and NSAIDs Vital Signs Temp Pulse Pulse Resp BP BP Pulse Ox 07/28/21 09:00 86 16 93/52 94 07/28/21 06:55 104 H 16 07/28/21 06:51 95 07/28/21 06:31 36.4 C 106/60 07/28/21 06:30 95 H 07/28/21 06:18 102 H 113/81 99 07/28/21 05:26 36.9 C 87 18 142/126 98 07/28/21 00:03 66 95 07/28/21 00:02 37.1 C 89 16 99/55 96 07/27/21 22:45 81 20 95 07/27/21 21:56 90 120/79 91 07/27/21 20:22 98 H 91 07/27/21 19:40 97 H 20 95 07/27/21 19:20 36.7 C 98 H 125/100 97 07/27/21 16:00 36.6 C 20 114/65 97 07/27/21 12:54 70 16 93 07/27/21 12:01 36.2 C 90 16 112/51 95 Intake and Output 07/27/21 07/28/21 07/28/21 21:59 05:59 13:59 Intake Total 375 Output Total 500 Balance -500 375 Intake: GI Tube Flush 375 Output: Void Amount 500 Other: Urine Appearance Clear Clear Urine Color Pale Pale Urine Odor Normal # Voids 2 2 1 Weight 127.414 kg Laboratory Tests 07/28/21 06:01 Sodium 138 Potassium 4.9 Chloride 103 Carbon Dioxide 20 L BUN 84 H Creatinine 3.8 H GFR Calculation 14 Glucose 243 H Uric Acid 17.9 H Calcium 8.9 Phosphorus 4.4 Magnesium 2.8 H Serum Creatinine Current Medications Acetaminophen (Acetaminophen 325 Mg Tablet) 650 mg PO Q4-6HP PRN; Protocol PRN Reason: Per Pain Protocol/Fever > 101 Albuterol/Ipratropium (Ipratropium/Albuterol 3 Ml Ampul.Neb) 3 ml NEB Q4HRT [facility] Last Admin: 07/28/21 06:51 Dose: 3 ml Documented by: Bisacodyl (Bisacodyl 10 Mg Supp.Rect) 10 mg [place] Q2-3DAYS PRN PRN Reason: Constipation Clonidine HCl (Clonidine Hcl 0.1 Mg Tablet) 0.1 mg PO BID [facility] Last Admin: 07/28/21 08:52 Dose: Not Given Documented by: Docusate Sodium (Docusate Sodium 100 Mg Capsule) 100 mg PO BID [facility] Last Admin: 07/28/21 08:44 Dose: 100 mg Documented by: Finasteride (Finasteride 5 Mg Tablet) 5 mg PO QDAY [facility] Last Admin: 07/28/21 08:43 Dose: 5 mg Documented by: Hydralazine HCl (Hydralazine 20 Mg/Ml Vial) 10 mg IV Q4-6HP PRN PRN Reason: Hypertension Acetaminophen (Ofirmev) 650 mg in 65 mls @ 130 mls/hr IV Q6HP PRN; Protocol PRN Reason: Per Pain Protocol/Fever > 101 Magnesium Sulfate (Magnesium Sulfate) 2 gm in 50 mls @ 50 mls/hr IV UD PRN PRN Reason: MG = or < 1.7 Sodium Chloride (Sodium Chloride 0.9%) 1,000 mls @ 50 mls/hr IV .Q20H [facility] Stop: 07/30/21 20:59 Last Admin: 07/28/21 08:56 Dose: 50 mls/hr Documented by: Iron Carb/Multivit/[place]/Folic Acid (Multivit,Ther Iron,Ca,Fa & Min 1 Tablet) 1 tab PO DAILY [facility] Last Admin: 07/28/21 08:43 Dose: 1 tab Documented by: Lorazepam (Lorazepam 0.5 Mg Tablet) 0.25 - 0.5 mg PO DAILYP PRN PRN Reason: Anxiety Last Admin: 07/27/21 22:11 Dose: 0.5 mg Documented by: Melatonin (Melatonin 3 Mg Tablet) 3 mg PO HSP PRN PRN Reason: Insomnia Methylprednisolone Sodium Succinate (Methylprednisolone Sod Succ 125 Mg/2 Ml Vial) 62.5 mg IV Q8 [facility] Last Admin: 07/28/21 05:11 Dose: 62.5 mg Documented by: Metoprolol Succinate (Metoprolol Succinate 50 Mg Tab.Xl.24h) 50 mg PO BID [facility] Last Admin: 07/28/21 08:52 Dose: 50 mg Documented by: Metoprolol Tartrate (Metoprolol Tartrate 5 Mg/5 Ml Vial) 5 mg IV Q5M PRN PRN Reason: Heart Rate > 140 bpm Montelukast Sodium (Montelukast 10 Mg Tablet) 10 mg PO QDAY [facility] Last Admin: 07/28/21 08:43 Dose: 10 mg Documented by: Omeprazole (Omeprazole 20 Mg Capsule) 40 mg PO ACB [facility] Last Admin: 07/28/21 07:08 Dose: 40 mg Documented by: Ondansetron HCl (Ondansetron 4 Mg Odt Tablet) 4 mg SL Q4-6HP PRN; Protocol PRN Reason: Nausea And Vomiting Ondansetron HCl (Ondansetron 4 Mg/2 Ml Vial) 4 mg IV Q4-6HP PRN; Protocol PRN Reason: Nausea And Vomiting Polyethylene Glycol (Polyethylene Glycol 3350 17 Gm Packet) 17 gm PO DAILYP PRN PRN Reason: Constipation Fluticasone/Salmeterol (Fluticasone/Salmeterol 250/50 Inhaler #14) 1 puff INH BIDP PRN PRN Reason: Shortness Of Breath Or Wheezing Senna/Docusate Sodium (Sennosides/Docusate Sodium 1 Tab Tablet) 1 tab PO [facility] Last Admin: 07/27/21 21:57 Dose: 1 tab Documented by: Sodium Chloride (0.9 % Sodium Chloride 10 Ml Syringe) 10 ml IV Q8 [facility] Last Admin: 07/28/21 05:11 Dose: 10 ml Documented by: Tamsulosin HCl (Tamsulosin 0.4 Mg Capsule) 0.4 mg PO QHS [facility] Last Admin: 07/27/21 21:57 Dose: 0.4 mg Documented by: Warfarin Sodium (Warfarin 2 Mg Tablet) 4 mg PO ONCE@1400 ONE Stop: 07/28/21 14:01 Pertinent ROS: BP still too low for optimum renal recovery Additional PMFSH (Level 3 Only): Nothing new Constitutional Vitals: Vital Signs Temp Pulse Resp BP Pulse Ox 36.4 C 86 16 93/52 94 07/28/21 06:31 07/28/21 09:00 07/28/21 09:00 07/28/21 09:00 07/28/21 09:00 Period Temp Pulse Resp BP Sys/Morales Pulse Ox Last 24 Hr 36.2 C-37.1 C 66-104 16-20 93-142/51-126 91-99 Intake and Output 07/27/21 07/28/21 07/28/21 21:59 05:59 13:59 Intake Total 375 Output Total 500 Balance -500 375 Weight 127.414 kg Intake & Output: Intake & Output 07/27/21 07/28/21 07/28/21 21:59 05:59 13:59 Intake Total 375 Output Total 500 Balance -500 375 Weight 127.414 kg Intake: GI Tube Flush 375 Output: Void Amount 500 Other: Urine Appearance Clear Clear Urine Color Pale Pale Urine Odor Normal # Voids 2 2 1 General appearance: no acute distress and obese Head Head exam: Present atraumatic and normocephalic Eye Eye exam: Present EOMI and PERRL ENT ENT exam: Present mucous membranes dry Neck Neck exam: Present full ROM; Absent tenderness Respiratory Respiratory exam: Present decreased breath sounds Cardiovascular Cardiovascular exam: Present normal rate and rhythm GI/Abdominal GI/Abdominal exam: Present normal bowel sounds; Absent tenderness Extremities Exam Extremities exam: Present pedal edema; Absent calf tenderness Neurological Exam Neurological exam: Present alert and CN II-XII intact Psychiatric Psychiatric exam: Present normal mood Skin Skin exam: Present dry and warm A/P Narrative A/P Narrative: (1) Renal failure (ARF), acute on chronic: Assessment and plan: Almost surly adverse effect of high dose lisinopril and prn advil, no obstruction. Carry on with no lisinopril, IV hydration with NS and trend labs (2) Bladder mass: Assessment and plan: Surgery after reversal of warfarin (3) Atrial fibrillation: Assessment and plan: Hold anticoagulation till post op (4) Medication induced coagulopathy: Assessment and plan: INR improved 3.4 to 2.7 O/N with holding warfarin (5) Hypertension: Assessment and plan: Over treated. Hold RASSI due to mild hyperkalemia and ARF on CKD 3 MAY need to reduce to qAM or D/C metoprolol altogether Narrative A/P Narrative: 1. No RASSI 2. No NSAIDS 3. Stop clonidine, hold parameters for metoprolol 4. Hydrate with NS 5. Expect 48-72 hours till back to baseline GFR 6. Repeat Echo 7. If GFR fails to improve, do renal U/S to look for URETERAL JETS Time Spent With Patient Time: Total time spent is greater than 50% in coordination of care (as documented) at patient's floor/unit and/or counseling patient: Total time spent with greater than 50% in coordination of care (as documented) at patient's floor/unit and/or counseling patient:: 25 - 35 minutes
[2021-07-28] MEDS ORDERED: WARFARIN 2 MG TABLET PO ONE (14:00)
[2021-07-28 16:51] LABS: Appearance,Urine HAZY (Clear); Bilirubin,Urine Negative (Negative); Color,Urine YELLOW; Culture Indicated,Urine No; Glucose,Urine (UA) Negative (Negative); Ketones,Urine Negative (Negative); Leukocyte Esterase,Urine Negative /uL (Negative); Nitrate,Urine Negative (Negative); Protein,Urine Negative (Negative); Specific Gravity,Urine 1.013 (1.000-1.035); Urine RBC 50 /hpf (0-3); Urine Squamous Epithelial Cell < 1 /hpf (0-4); Urine WBC 3 /hpf (0-4); Urobilinogen,Urine Negative
[2021-07-28] MEDS: SENNOSIDES/DOCUSATE SODIUM 1 TAB TABLET PO SCH (21:43)
[2021-07-28] MEDS: TAMSULOSIN 0.4 MG CAPSULE PO SCH (21:43)
[2021-07-29] MEDS: IPRATROPIUM/ALBUTEROL 3 ML AMPUL.NEB NEB SCH ×2 (02:17→07:15)
[2021-07-29] MEDS: 0.9 % SODIUM CHLORIDE 10 ML SYRINGE IV SCH (05:50)
[2021-07-29] MEDS: 0.9 % SODIUM CHLORIDE 1,000 ML IV SCH (05:50)
[2021-07-29] MEDS: methylPREDNISolone SOD SUCC 125 MG/2 ML VIAL IV SCH (06:04)
[2021-07-29 06:29] LABS: Basophils # (Auto) 0 K/mcL (0.00-0.30); Basophils % (Auto) 0 % (0.0-2.0); Eosinophils # (Auto) 0 K/mcL (0.00-0.70); Eosinophils % (Auto) 0 % (0.0-7.0); Hematocrit 28.6 % (40.1-51.0); Hemoglobin 8.7 g/dL (13.7-17.5); Lymphocytes # (Auto) 0.27 K/mcL (1.50-4.80); Lymphocytes % (Auto) 2.5 % (15.5-49.0); Mean Cell Volume 86.4 fL (80.0-100.0); Mean Corpuscular HGB Conc 30.4 g/dL (31.0-36.0); Mean Platelet Volume 10.3 fL (7.4-10.4); Monocytes # (Auto) 0.31 K/mcL (0.10-0.90); Monocytes % (Auto) 2.8 % (1.0-12.0); Neutrophils % (Auto) 94.7 % (38.0-78.0); Platelet Count 195 K/mcL (140-440); RBC 3.31 M/mcL (4.63-6.08); Red Cell Distribution Width 21.1 % (11.5-14.5); WBC 10.9 K/mcL (4.5-11.0)
[2021-07-29 06:50] LABS: INR 2.7 (0.9-1.1); Prothrombin Time 29.8 sec (11.9-14.5)
[2021-07-29 06:56] LABS: ALT/SGPT 82 U/L (<40); AST/SGOT 58 U/L (<40); Albumin 3.8 gm/dL (3.2-5.2); Albumin/Globulin Ratio 1.4 (1.0-2.3); Alkaline Phosphatase 67 U/L (39-117); Bilirubin,Direct 0.2 mg/dL (<0.3); Bilirubin,Total 0.5 mg/dL (0.1-1.0); Blood Urea Nitrogen 83 mg/dL (8-23); Calcium 8.9 mg/dL (8.6-10.4); Carbon Dioxide 18 mmol/L (22-30); Chloride 98 mmol/L (96-108); Globulin 2.7 gm/dL (2.2-3.7); Glomerular Filtration Rate 18; Glucose 190 mg/dL (70-105); Lactate Dehydrogenase 253 U/L (135-225); Phosphorous 4.7 mg/dL (2.5-4.5); Triglycerides 72 mg/dL (<150); Uric Acid 16.1 mg/dL (2.5-8.0)
[2021-07-29] MEDS: OMEPRAZOLE 20 MG CAPSULE PO SCH (07:32)
[2021-07-29] MEDS: MULTIVIT,THER IRON,CA,FA & MIN 1 TABLET PO SCH (09:19)
[2021-07-29] MEDS: MONTELUKAST 10 MG TABLET PO SCH (09:19)
[2021-07-29] MEDS: METOPROLOL SUCCINATE 50 MG TAB.XL.24H PO SCH (09:19)
[2021-07-29] MEDS: DOCUSATE SODIUM 100 MG CAPSULE PO SCH (09:19)
[2021-07-29] MEDS: FINASTERIDE 5 MG TABLET PO SCH (09:19)
--- NOTE | 2021-07-29 09:30 | Nephrology Progress Note ---
SUBJECTIVE Subjective Patient information: Note initiated : 07/29/21 at 9:28 am Service Date, if different from initiated Date: [] Patient: Mitch Bustillos 76 y/o M admitted on 07/26/21 for sob. Chief Complaint: [ARF] Principal diagnosis: ARF Interval history: Interval history: 76 yr old admitted with acute rise in serum Cr. Hx of left sided bladder neoplasia but 2 CTs fail to demonstrate any hydronephrosis. BP on low side, diogo this AM so clonidine stopped but Metoprolol succinate 50 mg po BID continued NS 50 cc/hr Major issue in addition to the lowish BP is RAASI and NSAIDs Vital Signs Temp Pulse Pulse Resp BP BP Pulse Ox 07/29/21 07:29 36.7 C 86 16 116/62 92 07/29/21 07:16 84 20 94 07/29/21 03:47 36.8 C 106 H 20 119/66 94 07/28/21 23:09 84 20 93 07/28/21 23:00 36.3 C 69 20 109/52 93 07/28/21 21:00 36.3 C 109 H 20 113/59 94 07/28/21 19:05 82 20 96 07/28/21 19:00 36.3 C 109 H 20 113/59 94 07/28/21 17:00 36.0 C L 101 H 22 106/61 96 07/28/21 15:05 75 18 94 07/28/21 15:00 36.4 C 92 H 17 120/58 95 07/28/21 11:15 69 16 94 07/28/21 11:00 37.1 C 68 17 112/74 96 Intake and Output 07/28/21 07/29/21 07/29/21 21:59 05:59 13:59 Intake Total 600 1000 Output Total 250 425 Balance -928 463 2157 Intake: IV 1000 Sodium Chloride 0.9% 1,000 ml @ 1000 50 mls/hr IV .Q20H [facility] Rx#: [id number] Oral 600 Output: Void Amount 250 425 Other: Urine Appearance Clear Urine Color Dark Yellow Urine Odor Normal # Voids 1 2 Weight 129.841 kg Laboratory Tests 07/29/21 07/29/21 07/29/21 05:34 06:25 06:25 Sodium 132 L Potassium 5.1 Chloride 98 Carbon Dioxide 18 L BUN 83 H Creatinine 3.2 H GFR Calculation 18 Glucose 190 H Uric Acid 16.1 H Calcium 8.9 Phosphorus 4.7 H Magnesium 2.7 H Ur Random Sodium 10 Ur Random Uric Acid 30.1 L Serum Creatinine Current Medications Acetaminophen (Acetaminophen 325 Mg Tablet) 650 mg PO Q4-6HP PRN; Protocol PRN Reason: Per Pain Protocol/Fever > 101 Albuterol/Ipratropium (Ipratropium/Albuterol 3 Ml Ampul.Neb) 3 ml NEB Q4HRT [facility] Last Admin: 07/29/21 07:15 Dose: 3 ml Documented by: Bisacodyl (Bisacodyl 10 Mg Supp.Rect) 10 mg [place] Q2-3DAYS PRN PRN Reason: Constipation Docusate Sodium (Docusate Sodium 100 Mg Capsule) 100 mg PO BID [facility] Last Admin: 07/29/21 09:19 Dose: 100 mg Documented by: Finasteride (Finasteride 5 Mg Tablet) 5 mg PO QDAY [facility] Last Admin: 07/29/21 09:19 Dose: 5 mg Documented by: Acetaminophen (Ofirmev) 650 mg in 65 mls @ 130 mls/hr IV Q6HP PRN; Protocol PRN Reason: Per Pain Protocol/Fever > 101 Magnesium Sulfate (Magnesium Sulfate) 2 gm in 50 mls @ 50 mls/hr IV UD PRN PRN Reason: MG = or < 1.7 Sodium Chloride (Sodium Chloride 0.9%) 1,000 mls @ 50 mls/hr IV .Q20H [facility] Stop: 07/30/21 20:59 Last Infusion: 07/29/21 07:32 Dose: Infused Documented by: Iron Carb/Multivit/[employer]/Folic Acid (Multivit,Ther Iron,Ca,Fa & Min 1 Tablet) 1 tab PO DAILY [facility] Last Admin: 07/29/21 09:19 Dose: 1 tab Documented by: Lorazepam (Lorazepam 0.5 Mg Tablet) 0.25 - 0.5 mg PO DAILYP PRN PRN Reason: Anxiety Last Admin: 07/27/21 22:11 Dose: 0.5 mg Documented by: Melatonin (Melatonin 3 Mg Tablet) 3 mg PO HSP PRN PRN Reason: Insomnia Last Admin: 07/28/21 22:37 Dose: 3 mg Documented by: Methylprednisolone Sodium Succinate (Methylprednisolone Sod Succ 125 Mg/2 Ml Vial) 62.5 mg IV Q8 [facility] Last Admin: 07/29/21 06:04 Dose: 62.5 mg Documented by: Metoprolol Succinate (Metoprolol Succinate 50 Mg Tab.Xl.24h) 50 mg PO BID [facility] Last Admin: 07/29/21 09:19 Dose: 50 mg Documented by: Metoprolol Tartrate (Metoprolol Tartrate 5 Mg/5 Ml Vial) 5 mg IV Q5M PRN PRN Reason: Heart Rate > 140 bpm Montelukast Sodium (Montelukast 10 Mg Tablet) 10 mg PO QDAY [facility] Last Admin: 07/29/21 09:19 Dose: 10 mg Documented by: Omeprazole (Omeprazole 20 Mg Capsule) 40 mg PO ACB [facility] Last Admin: 07/29/21 07:32 Dose: 40 mg Documented by: Ondansetron HCl (Ondansetron 4 Mg Odt Tablet) 4 mg SL Q4-6HP PRN; Protocol PRN Reason: Nausea And Vomiting Ondansetron HCl (Ondansetron 4 Mg/2 Ml Vial) 4 mg IV Q4-6HP PRN; Protocol PRN Reason: Nausea And Vomiting Polyethylene Glycol (Polyethylene Glycol 3350 17 Gm Packet) 17 gm PO DAILYP PRN PRN Reason: Constipation Fluticasone/Salmeterol (Fluticasone/Salmeterol 250/50 Inhaler #14) 1 puff INH BIDP PRN PRN Reason: Shortness Of Breath Or Wheezing Senna/Docusate Sodium (Sennosides/Docusate Sodium 1 Tab Tablet) 1 tab PO [facility] Last Admin: 07/28/21 21:43 Dose: 1 tab Documented by: Sodium Chloride (0.9 % Sodium Chloride 10 Ml Syringe) 10 ml IV Q8 [facility] Last Admin: 07/29/21 05:50 Dose: Not Given Documented by: Tamsulosin HCl (Tamsulosin 0.4 Mg Capsule) 0.4 mg PO QHS [facility] Last Admin: 07/28/21 21:43 Dose: 0.4 mg Documented by: Warfarin Sodium (Warfarin 2 Mg Tablet) 4 mg PO ONCE@1400 ONE Stop: 07/29/21 14:01 Pertinent ROS: Nothing newe BP on lowish side Receiving warfarin up till 07/28/2021 Additional PMFSH (Level 3 Only): N/A Constitutional Vitals: Vital Signs Temp Pulse Resp BP Pulse Ox 36.7 C 86 16 116/62 92 07/29/21 07:29 07/29/21 07:29 07/29/21 07:29 07/29/21 07:29 07/29/21 07:29 Period Temp Pulse Resp BP Sys/Morales Pulse Ox Last 24 Hr 36.0 C-37.1 C 68-109 16-22 106-120/52-74 92-96 Intake and Output 07/28/21 07/29/21 07/29/21 21:59 05:59 13:59 Intake Total 600 1000 Output Total 250 425 Balance -267 396 3788 Weight 129.841 kg Intake & Output: Intake & Output 07/28/21 07/29/21 07/29/21 21:59 05:59 13:59 Intake Total 600 1000 Output Total 250 425 Balance -834 669 0859 Weight 129.841 kg Intake: IV 1000 Sodium Chloride 0.9% 1,000 ml @ 1000 50 mls/hr IV .Q20H [facility] Rx#: [id number] Oral 600 Output: Void Amount 250 425 Other: Urine Appearance Clear Urine Color Dark Yellow Urine Odor Normal # Voids 1 2 General appearance: obese Head Head exam: Present atraumatic and normocephalic Eye Eye exam: Present EOMI and PERRL Pupils: Present PERRL ENT ENT exam: Present mucous membranes dry Neck Neck exam: Present full ROM; Absent normal inspection (Bilateral supraclavicular fat pads) Respiratory Respiratory exam: Present rhonchi; Absent rales or respiratory distress Cardiovascular Cardiovascular exam: Present +S1 and +S2; Absent gallop, JVD or tachycardia GI/Abdominal GI/Abdominal exam: Present normal bowel sounds and soft; Absent bruit Rectal Rectal exam: Present deferred Extremities Exam Extremities exam: Present pedal edema (trace); Absent calf tenderness Neurological Exam Neurological exam: Present alert, CN II-XII intact and oriented X3 Psychiatric Psychiatric exam: Present normal affect and normal mood Skin Skin exam: Present normal color; Absent petechiae or rash Additional comments: Scattered ecchymosis and tattoos A/P Assessment and plan (1) Medication induced coagulopathy: Status: Acute Comment: Hold warfarin 1 week before bladder surgery (2) Renal failure (ARF), acute on chronic: Status: Acute Comment: NSAIDs, RAASI and BP too low. Slowly improving off Lisinopril and NSAIDS Clonidine stopped and metoprolol succinate reduced from 50 mg BID to QAM Follow up on 08/02/2021 in my office (3) Hypertension: Assessment and plan: See Rx changes above Seems overtreated Status: Chronic Qualifiers: Hypertension type: essential hypertension Qualified Code(s): I10 - Essential (primary) hypertension (4) Bladder mass: Assessment and plan: No hydronephrosis Best laid plans of mice and men thwarted by continued warfarin in hospital so delay bladder surgery by two weeks, hold warfarin in 1 week. Labs on 08/01/2021 NO HYDRONEPHROSIS on either CT Apr or Jul 2021. Status: Acute Comment: Surgery soon Narrative A/P Narrative: 1. ARF on CKD G3 Most likely due to lisinopril and NSAIDs - both stopped 2. HTN To well controlled - stopped lisinopril, clonidine and decrease metoprolol succinate to 50 mg po qAM 3. Coagulopathy from warfarin Initial INR 3.4 or so Last dose of warfarin 07/28/2021 Recheck INR on and stop 1week prior to bladder surgery 4. Office follow up on 08/02/21 and labs 08/01/2021 Time Spent With Patient Time: Total time spent is greater than 50% in coordination of care (as documented) at patient's floor/unit and/or counseling patient: Total time spent with greater than 50% in coordination of care (as documented) at patient's floor/unit and/or counseling patient:: 25 - 35 minutes
--- NOTE | 2021-07-29 10:29 | Discharge Summary ---
Discharge Provider Provider Patient information: Note initiated : 07/29/21 at 10:25 am Service Date, if different from initiated Date: [] Patient: Mitch Bustillos 76 y/o M admitted on 07/26/21 for sob. Chief Complaint: [] Date of admission: 07/26/21 22:55 Discharge date: 07/29/21 Primary care physician: Mynor Carbajal MD Consults: 07/26/21 Consult to Physician [CONS] Stat Comment: Consulting Provider: Aidan Burns Reason For Exam: Physician to Consult 07/26/21 23:03 Consult to Physician [CONS] Routine Comment: Consulting Provider: Steven Baeza Reason For Exam: Physician to Consult Discharge Meds Discharge Medications Home Medications finasteride 5 mg tablet 5 mg PO QDAY #90 tab 12/04/20 [Rx Confirmed 07/27/21 Last Taken Unknown] furosemide 40 mg tablet 40 mg PO QAM #90 tab 12/04/20 [Rx Confirmed 07/27/21 Last Taken Unknown] montelukast 10 mg tablet (Singulair) 10 mg PO QDAY #90 tab 12/04/20 [Rx Confirmed 07/27/21 Last Taken Unknown] tamsulosin 0.4 mg capsule 0.4 mg PO QHS #90 cap 12/04/20 [Rx Confirmed 07/27/21 Last Taken Unknown] fluticasone propionate 50 mcg/actuation nasal spray,suspension (Allergy Relief (fluticasone)) 2 spray INTRANASAL QDAY #16 g 01/09/21 [Rx Confirmed 07/27/21 Last Taken Unknown] zolpidem 5 mg tablet 5 mg PO QHS #90 tab 04/04/21 [Rx Confirmed 07/27/21 Last Taken Unknown] metoprolol succinate 50 mg capsule sprinkle, ext. release 24 hr 50 mg PO BID #60 ea 04/23/21 [Rx Confirmed 07/27/21 Last Taken Unknown] warfarin 4 mg tablet 4 mg PO QDAY #30 tab 04/23/21 [Rx Confirmed 07/27/21 Last Taken Unknown] omeprazole 40 mg capsule,delayed release 40 mg PO QDAY 07/19/21 [History Confirmed 07/27/21 Last Taken Unknown] ascorbate calcium (vitamin C) 500 mg tablet 500 mg PO QDAY 07/26/21 [History Confirmed 07/27/21 Last Taken Unknown] fluticasone 250 mcg-salmeterol 50 mcg/dose blistr powdr for inhalation (Advair Diskus) 1 inh INHALATION BID PRN 07/26/21 [History Confirmed 07/27/21 Last Taken Unknown] lorazepam 0.5 mg tablet 0.25 - 0.5 mg PO PRN PRN 07/26/21 [History Confirmed 07/27/21 Last Taken Unknown] magnesium oxide,aspartate,citr (Triple Magnesium Complex) 400 mg PO QDAY 07/26/21 [History Confirmed 07/27/21 Last Taken Unknown] multivitamin with minerals-folic acid 0.4 mg tablet 0.4 tab PO QDAY 07/26/21 [History Confirmed 07/27/21 Last Taken Unknown] COURSE Hospital Course Hospital course: Discharge diagnosis * Acute kidney injury prerenal creatinine 5.3- > 4.2-> 3.8-> 3.2. Discontinued clonidine/NSAID/diuretics/SASHA inhibitor. Okay to discharge per nephrology. We will follow-up with nephrology on Thursday after BMP check on * Hyperkalemiae secondary to ANJALI/SASHA inhibitor. Resolved post Kayexalate * Acute exacerbation of COPD c clinically improved on steroids. Continue bronchodilators * Acute respiratory failure with hypoxia -clinically resolved. Now on room air. Covid negative. * History of bladder cancer- will follow-up urology as outpatient for bladder surgery. Please call urology office for date of surgery * Severe CAD/coronary calcification -recommend outpatient cardiology follow-up on discharge * Anticoagulation on Coumadin. INR therapeutic. Will need to hold Coumadin prior to surgery as directed by urology office * A. fib rate controlled on beta-lorenza * Hypertension continue beta-lorenza. DC clonidine/SASHA inhibitor/amlodipine per nephrology * BPH Flomax/finasteride * Anxiety disorder continue home dose lorazepam * GERD continue PPI Brief hospital course Mr. Bustillos is a 76 year old M with a history of COPD, HTN, CKD, CAD/A. fib on anticoagulation who presents to the ER with increasing shortness of breath worsening over the last week. Patient denies sick contacts. He endorses low- grade fever. Initial work-up in the ER was consistent with creatinine elevation at 5.3 however chest imaging no acute process except for bilateral effusions, nephrology was consulted. Patient also carries a history of bladder cancer and is due for operative intervention on July 31. CT scan abdomen did not reveal obstructive process. Urology at [facility] was consulted and advised no active urological intervention at this time. Thereafter nephrology service was consulted and recommended hospitalization for management acute renal failure. Patient received bronchodilators and dose of Solu-Medrol in the ER with resultant improvement in shortness of breath. Subsequently hospitalist service was consulted At the time of my evaluation patient is alert and oriented. He was able to answer most the questions. He denies recent changes in medication except for taking occasional NSAIDs/his regular SASHA inhibitor. He endorses to loss of appetite/inability to function due to progressive malaise/fatigue. 07/27-patient gradually improving. Improved shortness of breath on steroids. Creatinine down to 4.2 with ongoing hydration. SASHA inhibitor is on hold. Nephrology on board. No overnight fever chills or concerns per staff. Continue close monitoring of hemodynamics. Potassium 5.6. 07/28-patient doing a lot better. Creatinine down to 3.8. Gentle crystalloids, hold SASHA inhibitor/diuretics. Systolics around 100. INR therapeutic. Potassium down to 4.9 status post Kayexalate. No fever chills nausea vomiting. 07/29-patient doing well. Discharging as per nephrology recommendations off clonidine, SASHA inhibitor, NSAIDs, amlodipine, diuretics. Recommend follow-up with urology as outpatient for bladder surgery. We will follow-up with nephrology on Thursday after checking BMP on . Discharge diagnosis: ARF Time Spent with Patient Time attestation: Total time spent providing and/or coordinating discharge services: EXAM Constitutional Vitals: Temp Pulse Resp BP Pulse Ox 98.1 F 86 16 116/62 92 07/29/21 07:29 07/29/21 07:29 07/29/21 07:29 07/29/21 07:29 07/29/21 07:29 Discharge Data Data Completed and Pending Labs on day of discharge: Labs from last 24 hours 07/29/21 07/29/21 07/29/21 06:25 06:25 05:35 WBC 10.9 RBC 3.31 L Hgb 8.7 L Hct 28.6 L MCV 86.4 MCH 26.3 MCHC 30.4 L RDW 21.1 H Plt Count 195 MPV 10.3 Neut % (Auto) 94.7 H Lymph % (Auto) 2.5 L [place] % (Auto) 2.8 Eos % (Auto) 0 Baso % (Auto) 0 Lymph # (Auto) 0.27 L [place] # (Auto) 0.31 Eos # (Auto) 0 Baso # (Auto) 0 Absolute Neutrophils 10.33 H PT INR Sodium Potassium Chloride Carbon Dioxide Anion Gap BUN Creatinine GFR Calculation Glucose Uric Acid Calcium Phosphorus Magnesium Total Bilirubin Direct Bilirubin GGT AST ALT Alkaline Phosphatase Lactate Dehydrogenase Total Protein Albumin Globulin Albumin/Globulin Ratio Triglycerides Urine Color Urine Appearance Urine pH Ur Specific [place] Urine Protein Urine Glucose (UA) Urine Ketones Urine Occult Blood Urine Nitrate Urine Bilirubin Urine Urobilinogen Ur Leukocyte Esterase Urine RBC Urine WBC Ur Squamous Epith Cells Urine Bacteria Ur Culture Indicated? Ur Random Sodium 10 Ur Random Uric Acid 30.1 L 07/29/21 07/29/21 07/28/21 05:34 05:34 15:13 WBC RBC Hgb Hct MCV MCH MCHC RDW Plt Count MPV Neut % (Auto) Lymph % (Auto) [place] % (Auto) Eos % (Auto) Baso % (Auto) Lymph # (Auto) [place] # (Auto) Eos # (Auto) Baso # (Auto) Absolute Neutrophils PT 29.8 H INR 2.7 H Sodium 132 L Potassium 5.1 Chloride 98 Carbon Dioxide 18 L Anion Gap 16.0 BUN 83 H Creatinine 3.2 H GFR Calculation 18 Glucose 190 H Uric Acid 16.1 H Calcium 8.9 Phosphorus 4.7 H Magnesium 2.7 H Total Bilirubin 0.5 Direct Bilirubin 0.2 GGT 39 AST 58 H ALT 82 H Alkaline Phosphatase 67 Lactate Dehydrogenase 253 H Total Protein 6.5 Albumin 3.8 Globulin 2.7 Albumin/Globulin Ratio 1.4 Triglycerides 72 Urine Color Yellow Urine Appearance Hazy A Urine pH 5.0 Ur Specific [place] 1.013 Urine Protein Negative Urine Glucose (UA) Negative Urine Ketones Negative Urine Occult Blood 0.20 Urine Nitrate Negative Urine Bilirubin Negative Urine Urobilinogen Negative Ur Leukocyte Esterase Negative Urine RBC 50 H Urine WBC 3 Ur Squamous Epith Cells < 1 Urine Bacteria None Ur Culture Indicated? No Ur Random Sodium Ur Random Uric Acid Discharge Plan Patient/Caregiver Discharge Instructions Activity: increase activity as tolerated Diet: Renal Activity Restrictions/Additional Instructions: Follow-up with Dr. Baeza on Thursday with labs BMP/PT/INR on Follow-up with urology Dr. Reis for bladder surgery in 10 to 14 days(Case discussed with Dr. Reis urology who recommended rescheduling surgery in 1 to 2 weeks given recent hospitalization and nonemergent nature of surgery) Please call urology office for exact date of surgery Discontinue Lasix, clonidine, amlodipine and SASHA inhibitor, absolutely no NSAIDs Coumadin needs to be held prior to bladder surgery and as directed by urology Prescriptions: Continued tamsulosin 0.4 mg capsule 0.4 mg PO QHS Qty: 90 4RF montelukast [Singulair] 10 mg tablet 10 mg PO QDAY Qty: 90 3RF finasteride 5 mg tablet 5 mg PO QDAY Qty: 90 4RF furosemide 40 mg tablet 40 mg PO QAM Qty: 90 4RF fluticasone propionate [Allergy Relief (fluticasone)] 50 mcg/actuation spray,suspension 2 spray INTRANASAL QDAY Qty: 16 3RF Rx Instructions: administer into each nostril zolpidem 5 mg tablet 5 mg PO QHS Qty: 90 0RF Rx Instructions: Must last 3 months. ss metoprolol succinate 50 mg capsule,sprinkle,ER 24hr 50 mg PO BID Qty: 60 6RF warfarin 4 mg tablet 4 mg PO QDAY Qty: 30 6RF omeprazole 40 mg Capsule,Delayed Release(Dr/Ec) 40 mg PO QDAY 0RF fluticasone propion-salmeterol [Advair Diskus] 250-50 mcg/dose blister with device 1 inh INHALATION BID PRN (Reason: Shortness Of Breath Or Wheezing) 0RF Rx Instructions: Generic please lorazepam 0.5 mg tablet 0.25 - 0.5 mg PO PRN PRN (Reason: anxiety) 0RF ascorbate calcium (vitamin C) 500 mg Tablet 500 mg PO QDAY 0RF multivit with min-folic acid 0.4 mg Tablet 0.4 tab PO QDAY 0RF Triple Magnesium Complex 400 mg magnesium Capsule 400 mg PO QDAY 0RF Discontinued clonidine HCl 0.1 mg tablet 0.1 mg PO BID Qty: 180 4RF potassium chloride [Klor-Con 10] 10 mEq tablet extended release 10 meq PO BID Qty: 180 3RF lisinopril 40 mg Tablet 40 mg PO QDAY 0RF amlodipine 10 mg Tablet 10 mg PO QDAY 0RF Other Ambulatory Orders: Basic Metabolic Panel (Routine) Timeframe: 20210801 Facility: [facility] - Location: Laboratory Ordered By: Aidan Burns Prothrombin Time INR (Routine) Timeframe: 20210801 Facility: [facility] - Location: Laboratory Ordered By: Aidan Burns Follow Up Plan Follow up with: Mynor Carbajal MD [Primary Care Provider] - Patient Disposition: Home, Self-Care Rehab Potential: Fair I certify that the patient requires SNF services: No Overall status at discharge: patient is progressing back to baseline Discharge Orders: Discharge Order (Routine); Ordered 07/29/21 Ordered By: Aidan Burns
[2021-07-29] MEDS ORDERED: WARFARIN 2 MG TABLET PO ONE (14:00)
== END 2021-07-29 12:45 | disposition home or self-care (01) | DRG 682 ==
LOC: ED 17:08 → ICU 22:55
PROVIDERS: ADMIT Internal Medicine; ATTEND Internal Medicine

== ENCOUNTER 2021-08-07 22:01 | Inpatient (IN) ==
[2021-08-07] MEDS ORDERED: methylPREDNISolone SOD SUCC 125 MG/2 ML VIAL IV ONE (22:12)
[2021-08-07] MEDS ORDERED: ALBUTEROL SULFATE 2.5 MG/3 ML NEBULIZER NEB ONE (22:12)
--- NOTE | 2021-08-07 22:15 | Emergency Department Note ---
SOB HPI General Chief Complaint: Shortness of Breath/Dyspnea Stated Complaint: shortness of breath Time Seen by Provider: 08/07/21 22:11 Source: patient Mode of arrival: ambulatory Limitations: no limitations History of Present Illness HPI Narrative: Narrative:76-year-old male with a history of COPD, CHF as well as a recent bout of ANJALI presents to the ED with gradually worsening shortness of breath especially with exertion, developing bilateral lower extremity edema since his last discharge about 10 days ago he was stopped on all his diuretics. He was admitted at that time for COPD and had a significant ANJALI, but there was no obstructive process and was discussed with urology at [place] and was admitted here for management his ANJALI improved he was treated for COPD and was discharged home but discontinued his diuretics. Now presents with worsening CHF COPD. No chest pain no fevers no GI symptoms. Related Data Allergies Allergy/AdvReac Type Severity Reaction Status Date / Time peanut Allergy Severe Swelling Verified 08/02/21 10:54 of Lip/Tongue/Throat Penicillins Allergy Severe angioedema Verified 08/02/21 10:54 bupropion [From Wellbutrin] Allergy Intermediate Hives Verified 08/02/21 10:54 ipratropium [From Atrovent] Allergy Unknown Shortness Verified 08/02/21 10:54 of Breath alcohol AdvReac Unknown Addiction; Verified 08/02/21 10:54 per patient "I'm an alcoholic for Chriust sakes." Review of Systems ROS ROS Narrative: Narrative: At least 10 systems reviewed and otherwise acutely negative except as in the HPI PFSH Narrative Patient History Narrative: Narrative: Medical/Surgical/Family History All Active Problems (Updated 08/08/21 @ 02:09 by Guillermo Pickett DO) Acute bronchitis (Chronic) Foreign body in ear (Chronic) Allergic conjunctivitis (Chronic) COPD (chronic obstructive pulmonary disease) (Chronic) Sleep apnea (Chronic) Asthma (Chronic) DDD (degenerative disc disease) (Chronic) SBO (small bowel obstruction) (Chronic) Hypertension (Chronic) Carpal tunnel syndrome (Chronic) Hyperlipidemia (Chronic) Pneumonia (Chronic) Adenomatous colon polyp (Chronic) Ejection fraction < 50% (Chronic) 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) History of colonoscopy (Chronic ~04/19/13) Joint pain (Chronic) Stiffness in joint (Chronic) Encounter for long-term (current) use of other medications (Chronic) Mitral regurgitation (Chronic) Atrial fibrillation (Chronic) Pharyngitis (Chronic) Varicose veins of both lower extremities (Acute) Venous stasis ulcer limited to breakdown of skin with varicose veins (Acute) Lacrimal gland inflammation (Acute) Asthma with exacerbation (Acute) Initial Medicare annual wellness visit (Acute) Nausea (Acute) Asymptomatic peripheral vascular disease (Acute) Sinusitis, chronic (Acute) Chest pain due to coronary artery disease (Acute) Bilateral foot pain (Acute) Pedal edema (Acute) Seasonal allergies (Acute) Acute bronchitis (Acute) Insomnia (Acute) Plantar fasciitis of right foot (Acute) Nocturia associated with benign prostatic hyperplasia (Acute) Microscopic hematuria (Acute) Bladder neoplasm (Acute) Bladder mass (Acute) Chronic anticoagulation (Acute) Bladder neoplasm (Acute) Hypoxia (Acute) Acute renal failure (Acute) COPD with acute exacerbation (Acute) Renal failure (ARF), acute on chronic (Acute) Medication induced coagulopathy (Acute) Acute exacerbation of CHF (congestive heart failure) (Acute) Acute respiratory failure with hypoxia (Acute) Acute exacerbation of chronic obstructive pulmonary disease (Acute) Medical History Acute bronchitis Adenomatous colon polyp Allergic dermatitis Allergic rhinitis Asthma Atrial fibrillation Bundle branch block, right Carpal tunnel syndrome COPD (chronic obstructive pulmonary disease) DDD (degenerative disc disease) DDD (degenerative disc disease), lumbar Diverticulosis Ejection fraction < 50% Encounter for long-term (current) use of other medications Encounter for long-term (current) use of other medications Erectile dysfunction Hematuria Hyperlipidemia Hyperlipidemia Hypertension Restart non-RAASI BP Rx if SCr <2.0 and HR > 60/min Joint pain Mitral regurgitation Moderate mitral regurgitation Obesity, morbid Plantar fasciitis of right foot Pneumonia PTSD (post-traumatic stress disorder) PVD (peripheral vascular disease) SBO (small bowel obstruction) Sinus bradycardia Sinusitis, acute Sinusitis, chronic Sleep apnea Spine pain, cervical Stiffness in joint Surgical History Coronary atherosclerosis of bypass graft History of colonoscopy (~04/19/13) History of gastric bypass (~12/2013) Family History Father COPD (chronic obstructive pulmonary disease) Other HTN (hypertension) Social History Smoking Status: Former smoker Alcohol Intake Frequency: former alcohol drinker Substance Use: does not use Exam Narrative Narrative: Narrative: Constitutional: normally developed, in mild respiratory distress Head: Normocephalic, atraumatic, Eyes: No Icterus, ENT: Moist mucus membranes, Neck: Supple, Cardiac: Tachycardic heart sounds, palpable radial pulses, 1+ bilateral lower extremity pitting edema Pulmonary: Tachypneic hypoxic on room air he is got basilar rales and is diminished, otherwise he has prolonged expiration with mild wheeze Gastrointestinal: Abdomen soft, non-distended, non-tender, Musculoskeletal: No gross deformities, well perfused Skin: warm, dry Neuro: Alert and oriented. General Limitations: no limitations Course Vital Signs Vital signs: Vital Signs Temperature 36.6 C 08/07/21 22:01 Pulse Rate 110 H 08/07/21 22:01 Respiratory Rate 18 08/07/21 22:01 Blood Pressure 167/77 08/07/21 22:01 Pulse Oximetry (%) 100 08/07/21 22:01 Temperature 36.6 C 08/08/21 01:42 Pulse Rate 110 H 08/08/21 01:42 Respiratory Rate 38 H 08/08/21 01:42 Blood Pressure 160/93 08/08/21 01:42 Pulse Oximetry (%) 93 08/08/21 01:42 MDM MDM Narrative Medical decision making narrative: Narrative: Patient with a history of COPD CHF and progressively worsening dyspnea since his last hospital discharge apparently was stopped on his diuretics. Starting to develop some lower extremity pedal edema Is wheezing and prolonged expiration on exam and respiratory is labored. Will place on BiPAP give duo nebs Solu-Medrol work-up pending Initial twelve-lead EKG at 2211 is completely uninterpretable due to severe artifact and baseline wander due to respiratory status will repeat once respirations improving. Of note patient does not have any chest pain Chest x-ray per my interpretation appears to show CHF Patient was placed on BiPAP is doing much better on reevaluation CBC shows mild leukocytosis suspect this is more likely reactive he has no infectious complaints fever chills. Electrolytes actually show significant improvement in his renal function creatinine 1.6 BNP is 3500 troponin 0 0.03 suspect slight demand ischemia from CHF and CKD Did give him some IV Lasix On reevaluation is feeling better on BiPAP have spoken with hospitalist who accepts admission Critical Care Time Total CriticalCare time was at least 35 minutes, excluding separately reportable procedures. There was a high probability of clinically significant/life threatening deterioration in the patient's condition which required my urgent intervention. Lab Data Result diagrams: 08/07/21 22:25 08/07/21 22:24 Labs: Lab Results 08/07/21 08/07/21 08/07/21 Range/Units 22:24 22:24 22:25 WBC 12.7 H (4.5-11.0) K/mcL RBC 3.27 L (4.63-6.08) M/mcL Hgb 8.9 L (13.7-17.5) g/dL Hct 30.2 L (40.1-51.0) % MCV 92.4 (80.0-100.0) fL MCH 27.2 (26.0-34.0) pg MCHC 29.5 L (31.0-36.0) g/dL RDW 21.1 H (11.5-14.5) % Plt Count 163 (140-440) K/mcL MPV 10.2 (7.4-10.4) fL Neut % (Auto) 90.9 H (38.0-78.0) % Lymph % (Auto) 4.2 L (15.5-49.0) % [place] % (Auto) 4.5 (1.0-12.0) % Eos % (Auto) 0.2 (0.0-7.0) % Baso % (Auto) 0.2 (0.0-2.0) % Lymph # (Auto) 0.54 L (1.50-4.80) K/mcL [place] # (Auto) 0.57 (0.10-0.90) K/mcL Eos # (Auto) 0.03 (0.00-0.70) K/mcL Baso # (Auto) 0.02 (0.00-0.30) K/mcL Absolute Neutrophils 11.55 H (1.80-8.00) K/mcL Sodium 137 (133-145) mmol/L Potassium 5.0 (3.3-5.1) mmol/L Chloride 103 (96-108) mmol/L Carbon Dioxide 25 (22-30) mmol/L Anion Gap 9.0 (8.0-16.0) BUN 24 H (8-23) mg/dL Creatinine 1.6 H (0.7-1.2) mg/dL GFR Calculation 41 Glucose 157 H (70-105) mg/dL Calcium 9.1 (8.6-10.4) mg/dL Troponin T 0.03 H (<0.03) ng/mL NT-Pro-B Natriuret Pep 3484.0 H (<450.0) pg/mL ED POC Tests ED POC Tests: SARIKA - Influenza A Negative SARIKA - Influenza B Negative SARIKA - SARS Antigen Negative Discharge Plan Patient/Caregiver Discharge Instructions Pt seen by ME[employer] C[employer]TER APPRENTICE/PA only: No Clinical Impression: Acute exacerbation of CHF (congestive heart failure), Acute respiratory failure with hypoxia, Acute exacerbation of chronic obstructive pulmonary disease Patient Disposition: Xfer As Inpt ([facility]) Condition: Serious Discharge Date/Time: 08/08/21 01:15
[2021-08-07 23:08] LABS: Basophils # (Auto) 0.02 K/mcL (0.00-0.30); Basophils % (Auto) 0.2 % (0.0-2.0); Eosinophils # (Auto) 0.03 K/mcL (0.00-0.70); Eosinophils % (Auto) 0.2 % (0.0-7.0); Hematocrit 30.2 % (40.1-51.0); Hemoglobin 8.9 g/dL (13.7-17.5); Lymphocytes # (Auto) 0.54 K/mcL (1.50-4.80); Lymphocytes % (Auto) 4.2 % (15.5-49.0); Mean Cell Volume 92.4 fL (80.0-100.0); Mean Corpuscular HGB Conc 29.5 g/dL (31.0-36.0); Mean Platelet Volume 10.2 fL (7.4-10.4); Monocytes # (Auto) 0.57 K/mcL (0.10-0.90); Monocytes % (Auto) 4.5 % (1.0-12.0); Neutrophils % (Auto) 90.9 % (38.0-78.0); Platelet Count 163 K/mcL (140-440); RBC 3.27 M/mcL (4.63-6.08); Red Cell Distribution Width 21.1 % (11.5-14.5); WBC 12.7 K/mcL (4.5-11.0)
[2021-08-07 23:30] LABS: Blood Urea Nitrogen 24 mg/dL (8-23); Calcium 9.1 mg/dL (8.6-10.4); Carbon Dioxide 25 mmol/L (22-30); Chloride 103 mmol/L (96-108); Glomerular Filtration Rate 41; Glucose 157 mg/dL (70-105)
[2021-08-08] MEDS ORDERED: FUROSEMIDE 40 MG/4 ML VIAL IV ONE (00:18)
[2021-08-08] MEDS ORDERED: morphine 2 MG/ML VIAL IV PRN (00:19)
[2021-08-08] MEDS ORDERED: ONDANSETRON 4 MG/2 ML VIAL IV PRN ×2 (00:19→09:03)
--- NOTE | 2021-08-08 03:43 | XRay Report ---
CLINICAL INFORMATION: Dyspnea COMPARISON: 07/26/2021 TECHNIQUE: Portable FINDINGS: The heart is moderately enlarged, but stable. Mediastinum is mildly widened. Moderate infiltrates have developed in both mid and lower lungs. Pulmonary vessels show mild cephalization due to bibasilar airspace disease. Small bilateral pleural effusions are noted. IMPRESSION: Moderate consolidated bibasilar infiltrates. Consider infection or aspiration.. Interpreted and Authenticated by: Chava Kincaid 08/08/21
[2021-08-08] MEDS ORDERED: FLUTICASONE/SALMETEROL 250/50 INHALER #14 INH PRN (08:53)
[2021-08-08] MEDS ORDERED: FINASTERIDE 5 MG TABLET PO SCH (09:00)
[2021-08-08] MEDS ORDERED: ACETAMINOPHEN 325 MG TABLET PO PRN (09:03)
[2021-08-08] MEDS ORDERED: LACTULOSE 20 GM/30 ML ORAL.SOL PO PRN (09:03)
[2021-08-08] MEDS ORDERED: SENNOSIDES 1 TABLET PO PRN (09:03)
[2021-08-08] MEDS ORDERED: IPRATROPIUM/ALBUTEROL 3 ML AMPUL.NEB NEB PRN (09:03)
[2021-08-08] MEDS ORDERED: METOPROLOL TARTRATE 5 MG/5 ML VIAL IV PRN (09:03)
--- NOTE | 2021-08-08 09:04 | Internal Med History&Physical ---
HPI History of Present Illness Patient information: Note initiated : 08/08/21 at 9:03 am Service Date, if different from initiated Date: [] Patient: Mitch Bustillos 76 y/o M admitted on 08/08/21 for shortness of breath. Chief Complaint: [shortness of breath] Chief complaint: shortness of breath History of present illness: Mr. Bustillos is a 76 year old M history of CHF, COPD, atrial fibrillation, CKD IV, p/w one week history of gradual onset, gradually worsening shortness of breath. He was hospitalized in our facility earlier this month. Several medications including clonidine, Lisinopril, potassium, and amlodipine were discontinued. However, there seems to have some misunderstanding and ended up NOT TAKING ANY OF HIS MEDICATIONS including diuretics. As a results, since one week after being discharged from hospital, he had gradually worsening shortness of breath, with respiratory wheezing. He denies any cough. He denies any chest pain. He denies any fever, chills, or sweating. He denies any increasing legs swelling. He denies unintentional weight gain. He is c/o 10-20ft exertional dyspnea. He is c/o general body weakness. He is c/o orthopnea and he sleeps on a recliner. 2D echocardiogram from last visit showed good systolic functions with LVEF 60-65% with diastolic dysfunctions. BNP 3484. CXR showing bibasilar infiltrates concerning for infection or aspiration. Constitutional Constitutional: Present weakness; Absent chills, excessive sweating, fatigue, fever(s), frequent falls or weight gain EENT Eyes: Absent blurry vision, change in vision, loss of vision or other visual disturbances Ears: Absent decreased hearing or tinnitus Nose, mouth and throat: Absent abnormal hearing, dry mouth, headache(s), nasal congestion or sore throat Cardiovascular Cardiovascular: Absent chest pain, chest pain at rest, edema, irregular heart rhythm or palpatations Respiratory Respiratory: Present dyspnea, dyspnea on exertion and wheezing; Absent cough Additional comments: orthopnea Gastrointestinal Gastrointestinal: Absent abdominal pain, constipation, diarrhea, nausea or vomiting Musculoskeletal Musculoskeletal: Absent back pain, deformity, limited range of motion, muscle cramps, muscle weakness or numbness Integumentary Integumentary: Absent lesions, rash or wounds Neurological Neurological: Absent focal weakness, headache(s) or numbness Psychiatric Psychiatric: Absent anxiety, depression or hallucinations [facility] PFSH All Active Problems (Updated 08/08/21 @ 09:21 by Donn Wood MD) Acute and chronic respiratory failure with hypoxia (Acute) Chronic kidney disease (CKD) stage G4/A1, severely decreased glomerular filtration rate (GFR) between 15-29 mL/min/1.73 square meter and albuminuria creatinine ratio less than 30 mg/g (Acute) BPH (benign prostatic hyperplasia) (Acute) Community acquired bilateral lower lobe pneumonia (Acute) Acute bronchitis (Chronic) Foreign body in ear (Chronic) Allergic conjunctivitis (Chronic) COPD (chronic obstructive pulmonary disease) (Chronic) Sleep apnea (Chronic) Asthma (Chronic) DDD (degenerative disc disease) (Chronic) SBO (small bowel obstruction) (Chronic) Hypertension (Chronic) Carpal tunnel syndrome (Chronic) Hyperlipidemia (Chronic) Pneumonia (Chronic) Adenomatous colon polyp (Chronic) Ejection fraction < 50% (Chronic) 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) History of colonoscopy (Chronic ~04/19/13) Joint pain (Chronic) Stiffness in joint (Chronic) Encounter for long-term (current) use of other medications (Chronic) Mitral regurgitation (Chronic) Atrial fibrillation (Chronic) Pharyngitis (Chronic) Varicose veins of both lower extremities (Acute) Venous stasis ulcer limited to breakdown of skin with varicose veins (Acute) Lacrimal gland inflammation (Acute) Asthma with exacerbation (Acute) Initial Medicare annual wellness visit (Acute) Nausea (Acute) Asymptomatic peripheral vascular disease (Acute) Sinusitis, chronic (Acute) Chest pain due to coronary artery disease (Acute) Bilateral foot pain (Acute) Pedal edema (Acute) Seasonal allergies (Acute) Acute bronchitis (Acute) Insomnia (Acute) Plantar fasciitis of right foot (Acute) Nocturia associated with benign prostatic hyperplasia (Acute) Microscopic hematuria (Acute) Bladder neoplasm (Acute) Bladder mass (Acute) Chronic anticoagulation (Acute) Bladder neoplasm (Acute) Hypoxia (Acute) Acute renal failure (Acute) COPD with acute exacerbation (Acute) Renal failure (ARF), acute on chronic (Acute) Medication induced coagulopathy (Acute) Acute exacerbation of CHF (congestive heart failure) (Acute) Acute respiratory failure with hypoxia (Acute) Acute exacerbation of chronic obstructive pulmonary disease (Acute) Medical History Acute bronchitis Adenomatous colon polyp Allergic dermatitis Allergic rhinitis Asthma Atrial fibrillation Bundle branch block, right Carpal tunnel syndrome COPD (chronic obstructive pulmonary disease) DDD (degenerative disc disease) DDD (degenerative disc disease), lumbar Diverticulosis Ejection fraction < 50% Encounter for long-term (current) use of other medications Encounter for long-term (current) use of other medications Erectile dysfunction Hematuria Hyperlipidemia Hyperlipidemia Hypertension Restart non-RAASI BP Rx if SCr <2.0 and HR > 60/min Joint pain Mitral regurgitation Moderate mitral regurgitation Obesity, morbid Plantar fasciitis of right foot Pneumonia PTSD (post-traumatic stress disorder) PVD (peripheral vascular disease) SBO (small bowel obstruction) Sinus bradycardia Sinusitis, acute Sinusitis, chronic Sleep apnea Spine pain, cervical Stiffness in joint Surgical History Coronary atherosclerosis of bypass graft History of colonoscopy (~04/19/13) History of gastric bypass (~12/2013) Family History Father COPD (chronic obstructive pulmonary disease) Other HTN (hypertension) Social History household members: spouse marital status: service: Yes ([facility] [employer]et - Disabled 10/24) occupational status: disabled 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 Mar 28 1991 physical activity: swimming frequency: 3-4 times per week smoking status start date: 08/24/1959 smoking status stop date: 08/24/94 alcohol intake frequency: former alcohol drinker substance use type: does not use MEDS/ALLERGIES Home Medications and Allergies Home Medications Medication Instructions Recorded Confirmed Type Triple Magnesium Complex 400 mg PO QDAY 08/08/21 08/08/21 History ascorbate calcium (vitamin C) 500 500 mg PO DAILY 08/08/21 08/08/21 History mg tablet finasteride 5 mg tablet 5 mg PO QDAY 08/08/21 08/08/21 History fluticasone 250 mcg-salmeterol 50 1 inh INHALATION BIDP PRN 08/08/21 08/08/21 History mcg/dose blistr powdr for inhalation fluticasone propionate 50 2 spray INTRANASAL DAILY 08/08/21 08/08/21 History mcg/actuation nasal spray,suspension furosemide 40 mg tablet 40 mg PO QAM 08/08/21 08/08/21 History lorazepam 0.5 mg tablet 0.25 - 0.5 mg PO PRN PRN 08/08/21 08/08/21 History metoprolol succinate 50 mg 50 mg PO BID 08/08/21 08/08/21 History tablet,extended release 24 hr montelukast 10 mg tablet 10 mg PO QDAY 08/08/21 08/08/21 History multivitamin with minerals-folic 1 tab PO DAILY 08/08/21 08/08/21 History acid 0.4 mg tablet omeprazole 40 mg capsule,delayed 40 mg PO QDAY 08/08/21 08/08/21 History release tamsulosin 0.4 mg capsule 0.4 mg PO HS 08/08/21 08/08/21 History warfarin 4 mg tablet 4 mg PO QDAY 08/08/21 08/08/21 History zolpidem 5 mg tablet 5 mg PO QHS 08/08/21 08/08/21 History Allergies Allergy/AdvReac Type Severity Reaction Status Date / Time peanut Allergy Severe Swelling Verified 08/02/21 10:54 of Lip/Tongue/Throat Penicillins Allergy Severe angioedema Verified 08/02/21 10:54 ipratropium [From Atrovent] Allergy Intermediate Shortness Verified 08/08/21 08:59 of Breath bupropion [From Wellbutrin] Allergy Mild Hives Verified 08/08/21 08:59 alcohol AdvReac Unknown Addiction; Verified 08/02/21 10:54 per patient "I'm an alcoholic for Chriust sakes." EXAM Constitutional Vitals: Temp Pulse Resp BP Pulse Ox 37.1 C 110 H 18 151/79 90 08/08/21 08:03 08/08/21 08:07 08/08/21 08:07 08/08/21 08:03 08/08/21 08:07 General appearance: cooperative, morbidly obese and no acute distress Head Head exam: Present atraumatic and normocephalic Eye Eye exam: Present EOMI and PERRL ENT ENT exam: Present mucous membranes moist, normal exam and normal external ear exam Additional comments: Nasal cannula in place Neck Neck exam: Present normal inspection; Absent lymphadenopathy, tenderness or thyromegaly Respiratory Respiratory exam: Present rhonchi and wheezes; Absent accessory muscle use or respiratory distress Cardiovascular Cardiovascular exam: Present irregular rhythm and tachycardia; Absent JVD GI/Abdominal GI/Abdominal exam: Present normal bowel sounds and soft; Absent organomegaly or tenderness Rectal Rectal exam: Present deferred Extremities Exam Extremities exam: Present full ROM, normal capillary refill, normal inspection and pedal edema; Absent tenderness Neurological Exam Neurological exam: Present alert, CN II-XII intact and oriented X3; Absent motor sensory deficit Psychiatric Psychiatric exam: Present normal affect and normal mood; Absent anxious or depressed Skin Skin exam: Present dry and intact DATA Data Completed and Pending Labs: Labs from last 24 hours 08/07/21 08/07/21 08/07/21 22:25 22:24 22:24 WBC 12.7 H RBC 3.27 L Hgb 8.9 L Hct 30.2 L MCV 92.4 MCH 27.2 MCHC 29.5 L RDW 21.1 H Plt Count 163 MPV 10.2 Neut % (Auto) 90.9 H Lymph % (Auto) 4.2 L Lamb % (Auto) 4.5 Eos % (Auto) 0.2 Baso % (Auto) 0.2 Lymph # (Auto) 0.54 L Lamb # (Auto) 0.57 Eos # (Auto) 0.03 Baso # (Auto) 0.02 Absolute Neutrophils 11.55 H Sodium 137 Potassium 5.0 Chloride 103 Carbon Dioxide 25 Anion Gap 9.0 BUN 24 H Creatinine 1.6 H GFR Calculation 41 Glucose 157 H Calcium 9.1 Troponin T 0.03 H NT-Pro-B Natriuret Pep 3484.0 H A/P Assessment and plan (1) COPD (chronic obstructive pulmonary disease): Status: Chronic Qualifiers: COPD type: COPD with acute exacerbation Qualified Code(s): J44.1 - Chronic obstructive pulmonary disease with (acute) exacerbation (2) Atrial fibrillation: Status: Chronic Qualifiers: Atrial fibrillation type: longstanding persistent Qualified Code(s): I48.11 - Longstanding persistent atrial fibrillation (3) Acute exacerbation of CHF (congestive heart failure): Status: Acute (4) Community acquired bilateral lower lobe pneumonia: Status: Acute (5) Chronic anticoagulation: Status: Acute (6) BPH (benign prostatic hyperplasia): Status: Acute (7) Chronic kidney disease (CKD) stage G4/A1, severely decreased glomerular filtration rate (GFR) between 15-29 mL/min/1.73 square meter and albuminuria creatinine ratio less than 30 mg/g: Status: Acute (8) Acute and chronic respiratory failure with hypoxia: Status: Acute Narrative A/P Narrative: Assessment and Plans: 1. CHF exacerbation: Inpatient PCU telemetry Likely due to medications miscommunication Was placed on BiPAP overnight, currently at 7L/min oxygen. Titrate to achieve spo2>=88% given COPD-er; home oxygen baseline @2L/min Instrict intake and output Daily weigh 2L/day fluid restriction Head of bed elevated 2D echocardiogram from last visit showed good systolic functions with LVEF 60-6 5% with diastolic dysfunctions, BNP 3484 Continue oral Metoprolol ER 50mg PO BID Lasix 40mg IV BID Hold Lisinopril for advanced CKD Physical therapy Occupational therapy 2. Bilateral lower lobes pneumonia: Procalcitonin Blood culture X2 cbc w/ auto diff in the morning to trend WBC Was placed on BiPAP overnight, currently at 7L/min oxygen. Titrate to achieve spo2>=88% given COPD-er Rocephin Zithromax Tylenol PRN fever Robitussin DM PRN cough DuoNEB NEB PRN wheezing 3. COPD, stable: Was placed on BiPAP overnight, currently at 7L/min oxygen. Titrate to achieve spo2>=88% given COPD-er Montelukast Continue rest of bronchodilators from home regimen DuoNEB NEB PRN wheezing 4. Chronic kidney disease stage 4 with associated anemia: Lasix 40mg IV BID Hold Lisinopril for advanced CKD Avoid nephrotoxic agents CMP daily to trend kidney functions cbc w/ auto diff daily to trend H/H 5. Atrial fibrillation with RVR on Coumadin: INR goal 2-3, currently within goal Metoprolol ER 50mg PO BID Coumadin with INR for dosing adjustment as needed Lopressor IV PRN tachyarrhythmia 6. BHP: Continue Finasteride and Flomax GI ppx: continue oral PPI from home regimen DVT ppx: Coumadin Code status: DNI DNR Prognosis: guarded Disposition: inpatient PCU telemetry Time Spent With Patient Time: Total time spent is greater than 50% in coordination of care (as documented) at patient's floor/unit and/or counseling patient: Total time spent with greater than 50% in coordination of care (as documented) at patient's floor/unit and/or counseling patient:: Greater than 35 minutes
[2021-08-08] MEDS ORDERED: guaiFENesin/DEXTROMETHORPHAN ORAL SOL PO PRN (09:26)
[2021-08-08] MEDS: MONTELUKAST 10 MG TABLET PO SCH (10:33)
[2021-08-08] MEDS: ASCORBIC ACID 500 MG TABLET PO SCH (10:33)
[2021-08-08] MEDS: METOPROLOL SUCCINATE 50 MG TAB.XL.24H PO SCH ×2 (10:33→21:27)
[2021-08-08] MEDS: MAGNESIUM OXIDE 400 MG TABLET PO SCH (10:33)
[2021-08-08] MEDS: DOCUSATE SODIUM 100 MG CAPSULE PO SCH ×2 (10:33→21:30)
[2021-08-08] MEDS: MULTIVIT,THER IRON,CA,FA & MIN 1 TABLET PO SCH (10:33)
[2021-08-08] MEDS: cefTRIAXone 1 GM VIAL IV SCH (10:34)
[2021-08-08] MEDS: AZITHROMYCIN 500 MG in DEXTROSE 5% IN WATER 250 ML IV SCH (10:54)
[2021-08-08 11:00] LABS: ALT/SGPT 17 U/L (<40); AST/SGOT 24 U/L (<40); Albumin 3.2 gm/dL (3.2-5.2); Alkaline Phosphatase 65 U/L (39-117); Bilirubin,Total 0.6 mg/dL (0.1-1.0); Blood Urea Nitrogen 29 mg/dL (8-23); Calcium 8.9 mg/dL (8.6-10.4); Carbon Dioxide 26 mmol/L (22-30); Chloride 101 mmol/L (96-108); Globulin 3.3 gm/dL (2.2-3.7); Glomerular Filtration Rate 38; Glucose 169 mg/dL (70-105)
[2021-08-08] MEDS: FLUTICASONE PROPIONATE SPRAY.NAS NS SCH (12:01)
[2021-08-08 12:14] LABS: INR 2.6 (0.9-1.1); Prothrombin Time 29.4 sec (11.9-14.5)
[2021-08-08] MEDS ORDERED: WARFARIN 2 MG TABLET PO ONE (14:00)
[2021-08-08] MEDS: FUROSEMIDE 40 MG/4 ML VIAL IV SCH (15:10)
[2021-08-08] MEDS: 0.9 % SODIUM CHLORIDE 10 ML SYRINGE IV SCH ×2 (15:11→22:00)
[2021-08-08] MEDS: LORazepam 0.5 MG TABLET PO PRN (21:27)
[2021-08-08] MEDS: TAMSULOSIN 0.4 MG CAPSULE PO SCH (21:27)
[2021-08-08] MEDS: ZOLPIDEM 5 MG TABLET PO SCH (21:27)
[2021-08-09] MEDS: 0.9 % SODIUM CHLORIDE 10 ML SYRINGE IV SCH ×3 (06:04→22:40)
[2021-08-09] MEDS: OMEPRAZOLE 20 MG CAPSULE PO SCH (06:57)
[2021-08-09] MEDS: FUROSEMIDE 40 MG/4 ML VIAL IV SCH ×2 (07:07→16:00)
[2021-08-09 07:15] LABS: Basophils # (Auto) 0.01 K/mcL (0.00-0.30); Basophils % (Auto) 0.1 % (0.0-2.0); Eosinophils # (Auto) 0 K/mcL (0.00-0.70); Eosinophils % (Auto) 0 % (0.0-7.0); Hemoglobin 8.6 g/dL (13.7-17.5); Lymphocytes # (Auto) 0.63 K/mcL (1.50-4.80); Lymphocytes % (Auto) 4.5 % (15.5-49.0); Mean Cell Volume 89.5 fL (80.0-100.0); Mean Corpuscular HGB Conc 30.7 g/dL (31.0-36.0); Mean Platelet Volume 10.7 fL (7.4-10.4); Monocytes # (Auto) 0.49 K/mcL (0.10-0.90); Monocytes % (Auto) 3.5 % (1.0-12.0); Neutrophils % (Auto) 91.9 % (38.0-78.0); Platelet Count 168 K/mcL (140-440); RBC 3.13 M/mcL (4.63-6.08); Red Cell Distribution Width 20.5 % (11.5-14.5); WBC 13.9 K/mcL (4.5-11.0)
[2021-08-09 07:44] LABS: INR 2.4 (0.9-1.1); Prothrombin Time 27.5 sec (11.9-14.5)
[2021-08-09 08:09] LABS: Phosphorous 3.6 mg/dL (2.5-4.5)
[2021-08-09 08:11] LABS: ALT/SGPT 18 U/L (<40); AST/SGOT 22 U/L (<40); Albumin 3.3 gm/dL (3.2-5.2); Albumin/Globulin Ratio 1.1 (1.0-2.3); Alkaline Phosphatase 63 U/L (39-117); Bilirubin,Total 0.4 mg/dL (0.1-1.0); Blood Urea Nitrogen 37 mg/dL (8-23); Calcium 8.8 mg/dL (8.6-10.4); Carbon Dioxide 27 mmol/L (22-30); Chloride 99 mmol/L (96-108); Globulin 3.1 gm/dL (2.2-3.7); Glomerular Filtration Rate 38; Glucose 129 mg/dL (70-105)
[2021-08-09] MEDS: ASCORBIC ACID 500 MG TABLET PO SCH (08:48)
[2021-08-09] MEDS: DOCUSATE SODIUM 100 MG CAPSULE PO SCH ×2 (08:48→22:39)
[2021-08-09] MEDS: METOPROLOL SUCCINATE 50 MG TAB.XL.24H PO SCH ×2 (08:48→22:39)
[2021-08-09] MEDS: cefTRIAXone 1 GM VIAL IV SCH (08:48)
[2021-08-09] MEDS: MONTELUKAST 10 MG TABLET PO SCH (08:48)
[2021-08-09] MEDS: MAGNESIUM OXIDE 400 MG TABLET PO SCH (08:48)
[2021-08-09] MEDS: MULTIVIT,THER IRON,CA,FA & MIN 1 TABLET PO SCH (08:48)
[2021-08-09] MEDS: FLUTICASONE PROPIONATE SPRAY.NAS NS SCH (08:49)
--- NOTE | 2021-08-09 09:34 | Internal Med Progress Note ---
SUBJECTIVE Subjective Patient information: Note initiated : 08/09/21 at 9:29 am Service Date, if different from initiated Date: [] Patient: Mitch Bustillos 76 y/o M admitted on 08/08/21 for shortness of breath. Chief Complaint: [] Interval history: Mr. Bustillos is a 76 year old M history of CHF, COPD, atrial fibrillation, CKD IV, p/w one week history of gradual onset, gradually worsening shortness of breath. He was hospitalized in our facility earlier this month. Several medications including clonidine, Lisinopril, potassium, and amlodipine were discontinued. However, there seems to have some misunderstanding and ended up NOT TAKING ANY OF HIS MEDICATIONS including diuretics. As a results, since one week after being discharged from hospital, he had gradually worsening shortness of breath, with respiratory wheezing. He denies any cough. He denies any chest pain. He denies any fever, chills, or sweating. He denies any increasing legs swelling. He denies unintentional weight gain. He is c/o 10-20ft exertional dyspnea. He is c/o general body weakness. He is c/o orthopnea and he sleeps on a recliner. 2D echocardiogram from last visit showed good systolic functions with LVEF 60-65% with diastolic dysfunctions. BNP 3484. CXR showing bibasilar infiltrates concerning for infection or aspiration. 08/09: Afebrile overnight. Currently on 4L/min oxygen. c/o SOB. Denies cough or sputum production or wheezing. Denies chest pain. Denies fever, chills, or sweating. On Rocephin and Zithromax for pneumonia. On Lasix IV for CHF exacerbation. Constitutional Vitals: Vital Signs Temp Pulse Resp BP Pulse Ox 36.3 C 95 H 24 H 153/84 97 08/09/21 05:32 08/09/21 08:09 08/09/21 08:09 08/09/21 08:09 08/09/21 08:09 Period Temp Pulse Resp BP Sys/Morales Pulse Ox Last 24 Hr 36.1 C-36.7 C 43-113 19-32 98-153/50-84 90-100 Intake and Output 08/08/21 08/09/21 08/09/21 21:59 05:59 13:59 Intake Total 240 180 Output Total 725 450 550 Balance -725 -210 -603 Weight 126.598 kg Intake & Output: Intake & Output 08/08/21 08/09/21 08/09/21 21:59 05:59 13:59 Intake Total 240 180 Output Total 725 450 550 Balance -725 -210 -795 Weight 126.598 kg Intake: Oral 240 180 Output: Void Amount 725 450 550 Other: Urine Appearance Clear Clear Clear Urine Color Dark Yellow Dark Yellow Bright Yellow Urine Odor Normal Normal General appearance: cooperative and no acute distress Head Head exam: Present atraumatic and normal inspection Eye Eye exam: Present normal appearance ENT ENT exam: Present mucous membranes moist, normal exam and normal external ear exam Additional comments: Nasal cannula in place Neck Neck exam: Present normal inspection Respiratory Respiratory exam: Present normal respiratory exam and rhonchi Cardiovascular Cardiovascular exam: Present irregular rhythm GI/Abdominal GI/Abdominal exam: Present normal bowel sounds Extremities Exam Extremities exam: Present pedal edema Back Exam Back exam: Present normal inspection Neurological Exam Neurological exam: Present alert and oriented X3 Skin Skin exam: Present intact and warm OBJ DATA Labs CBC & Chem 7: 08/09/21 05:18 08/09/21 05:17 Labs: Abnormal Lab Results 08/09/21 08/09/21 08/09/21 05:18 05:18 05:17 WBC 13.9 H RBC 3.13 L Hgb 8.6 L Hct 28.0 L MCHC 30.7 L RDW 20.5 H MPV 10.7 H Neut % (Auto) 91.9 H Lymph % (Auto) 4.5 L Lymph # (Auto) 0.63 L Absolute Neutrophils 12.74 H PT 27.5 H INR 2.4 H BUN 37 H Creatinine 1.7 H Glucose 129 H Troponin T NT-Pro-B Natriuret Pep Procalcitonin 08/08/21 08/08/21 08/08/21 11:28 09:15 09:15 WBC RBC Hgb Hct MCHC RDW MPV Neut % (Auto) Lymph % (Auto) Lymph # (Auto) Absolute Neutrophils PT 29.4 H INR 2.6 H BUN 29 H Creatinine 1.7 H Glucose 169 H Troponin T NT-Pro-B Natriuret Pep Procalcitonin 0.15 H 08/07/21 08/07/21 08/07/21 22:25 22:24 22:24 WBC 12.7 H RBC 3.27 L Hgb 8.9 L Hct 30.2 L MCHC 29.5 L RDW 21.1 H MPV Neut % (Auto) 90.9 H Lymph % (Auto) 4.2 L Lymph # (Auto) 0.54 L Absolute Neutrophils 11.55 H PT INR BUN 24 H Creatinine 1.6 H Glucose 157 H Troponin T 0.03 H NT-Pro-B Natriuret Pep 3484.0 H Procalcitonin Meds: Medications Acetaminophen (Acetaminophen 325 Mg Tablet) 650 mg PO Q6HP PRN; Protocol PRN Reason: Per Pain Protocol/Fever > 101 Albuterol/Ipratropium (Ipratropium/Albuterol 3 Ml Ampul.Neb) 3 ml NEB Q4HRT PRN PRN Reason: Wheezing Ascorbic Acid (Ascorbic Acid 500 Mg Tablet) 500 mg PO DAILY [facility] Last Admin: 08/09/21 08:48 Dose: 500 mg Documented by: Ceftriaxone Sodium (Ceftriaxone 1 Gm Vial) 1 gm IV Q24H [facility]; Protocol Last Admin: 08/09/21 08:48 Dose: 1 gm Documented by: Docusate Sodium (Docusate Sodium 100 Mg Capsule) 100 mg PO BID [facility] Last Admin: 08/09/21 08:48 Dose: 100 mg Documented by: Finasteride (Finasteride 5 Mg Tablet) 5 mg PO HS DAVID Fluticasone Propionate (Fluticasone Propionate [place].Nguyễn) 2 spray NS DAILY [facility] Last Admin: 08/09/21 08:49 Dose: Not Given Documented by: Furosemide (Furosemide 40 Mg/4 Ml Vial) 40 mg IV BIDD [facility] Last Admin: 08/09/21 07:07 Dose: 40 mg Documented by: Guaifenesin (Guaifenesin/Dextromethorphan Oral Siria) 10 ml PO Q4HP PRN PRN Reason: Cough Azithromycin 500 mg/ Dextrose 250 mls @ 250 mls/hr IV Q24H [facility]; Protocol Stop: 08/10/21 11:59 Last Infusion: 08/08/21 12:01 Dose: Infused Documented by: Iron Carb/Multivit/[place]/Folic Acid (Multivit,Ther Iron,Ca,Fa & Min 1 Tablet) 1 tab PO DAILY [facility] Last Admin: 08/09/21 08:48 Dose: 1 tab Documented by: Lactulose (Lactulose 20 Gm/30 Ml Oral.Siria) 10 gm PO DAILYP PRN PRN Reason: Constipation Lorazepam (Lorazepam 0.5 Mg Tablet) 0.25 - 0.5 mg PO DAILYP PRN PRN Reason: Anxiety Last Admin: 08/08/21 21:27 Dose: 0.5 mg Documented by: Magnesium Oxide (Magnesium Oxide 400 Mg Tablet) 400 mg PO DAILY [facility] Last Admin: 08/09/21 08:48 Dose: 400 mg Documented by: Metoprolol Succinate (Metoprolol Succinate 50 Mg Tab.Xl.24h) 50 mg PO BID [facility] Last Admin: 08/09/21 08:48 Dose: 50 mg Documented by: Metoprolol Tartrate (Metoprolol Tartrate 5 Mg/5 Ml Vial) 5 mg IV Q5M PRN PRN Reason: Tachyarrhythmias Montelukast Sodium (Montelukast 10 Mg Tablet) 10 mg PO QDAY [facility] Last Admin: 08/09/21 08:48 Dose: 10 mg Documented by: Omeprazole (Omeprazole 20 Mg Capsule) 40 mg PO ACB [facility] Last Admin: 08/09/21 06:57 Dose: 40 mg Documented by: Ondansetron HCl (Ondansetron 4 Mg/2 Ml Vial) 4 mg IV Q4HP PRN; Protocol PRN Reason: Nausea And Vomiting Fluticasone/Salmeterol (Fluticasone/Salmeterol 250/50 Inhaler #14) 1 puff INH BIDP PRN PRN Reason: Shortness Of Breath Senna (Sennosides 1 Tablet) 2 tab PO HSP PRN PRN Reason: Constipation Sodium Chloride (0.9 % Sodium Chloride 10 Ml Syringe) 10 ml IV Q8 [facility] Last Admin: 08/09/21 06:04 Dose: 10 ml Documented by: Tamsulosin HCl (Tamsulosin 0.4 Mg Capsule) 0.4 mg PO HS [facility] Last Admin: 08/08/21 21:27 Dose: 0.4 mg Documented by: Warfarin Sodium (Warfarin Per Pharmacy) 1 order PO UD [facility] Warfarin Sodium (Warfarin 2 Mg Tablet) 4 mg PO ONCE@1400 ONE Stop: 08/09/21 14:01 Zolpidem Tartrate (Zolpidem 5 Mg Tablet) 5 mg PO QHS [facility] Last Admin: 08/08/21 21:27 Dose: 5 mg Documented by: A/P Assessment and plan (1) COPD (chronic obstructive pulmonary disease): Status: Chronic Qualifiers: COPD type: COPD with acute exacerbation Qualified Code(s): J44.1 - Chronic obstructive pulmonary disease with (acute) exacerbation (2) Atrial fibrillation: Status: Chronic Qualifiers: Atrial fibrillation type: longstanding persistent Qualified Code(s): I48.11 - Longstanding persistent atrial fibrillation (3) Acute exacerbation of CHF (congestive heart failure): Status: Acute (4) Community acquired bilateral lower lobe pneumonia: Status: Acute (5) Chronic anticoagulation: Status: Acute (6) BPH (benign prostatic hyperplasia): Status: Acute (7) Chronic kidney disease (CKD) stage G4/A1, severely decreased glomerular filtration rate (GFR) between 15-29 mL/min/1.73 square meter and albuminuria creatinine ratio less than 30 mg/g: Status: Acute (8) Acute and chronic respiratory failure with hypoxia: Status: Acute Narrative A/P Narrative: Assessment and Plans: 1. CHF exacerbation: Transfer to inpatient med surg telemetry Likely due to medications miscommunication Supplemental oxygen therapy, titrate to achieve spo2>=88% given COPD-er; home oxygen baseline @2L/min, currently on 4L/min Instrict intake and output Daily weigh 2L/day fluid restriction Head of bed elevated 2D echocardiogram from last visit showed good systolic functions with LVEF 60- 65% with diastolic dysfunctions, BNP 3484 Continue oral Metoprolol ER 50mg PO BID Lasix 40mg IV BID Hold Lisinopril for advanced CKD Physical therapy Occupational therapy 2. Bilateral lower lobes pneumonia: Procalcitonin Blood culture X2, no growth to date cbc w/ auto diff in the morning to trend WBC Supplemental oxygen therapy, titrate to achieve spo2>=88% given COPD-er; home oxygen baseline @2L/min, currently on 4L/min Rocephin Zithromax Tylenol PRN fever Robitussin DM PRN cough DuoNEB NEB PRN wheezing 3. COPD, stable: Supplemental oxygen therapy, titrate to achieve spo2>=88% given COPD-er; home oxygen baseline @2L/min, currently on 4L/min Montelukast Continue rest of bronchodilators from home regimen DuoNEB NEB PRN wheezing 4. Chronic kidney disease stage 4 with associated anemia: Lasix 40mg IV BID Hold Lisinopril for advanced CKD Avoid nephrotoxic agents CMP daily to trend kidney functions cbc w/ auto diff daily to trend H/H 5. Atrial fibrillation with RVR on Coumadin: INR goal 2-3, currently within goal Metoprolol ER 50mg PO BID Coumadin with INR for dosing adjustment as needed Lopressor IV PRN tachyarrhythmia 6. BHP: Continue Finasteride and Flomax GI ppx: continue oral PPI from home regimen DVT ppx: Coumadin Code status: DNI DNR Prognosis: stable Disposition: inpatient med surg telemetry Time Spent With Patient Time: Total time spent is greater than 50% in coordination of care (as documented) at patient's floor/unit and/or counseling patient: Total time spent with greater than 50% in coordination of care (as documented) at patient's floor/unit and/or counseling patient:: Greater than 35 minutes
[2021-08-09] MEDS: AZITHROMYCIN 500 MG in DEXTROSE 5% IN WATER 250 ML IV SCH (11:15)
--- NOTE | 2021-08-09 11:16 | EKG ---
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
--- NOTE | 2021-08-09 11:19 | EKG ---
[facility] Test Date: 2021-08-07 Pat Name: Mitch Bustillos Department: ED Room: Gender: Male [employer]: : [id number] Requested By: Guillermo Pickett Order Number: [id number] Reading MD: Bert Oquendo Measurements Intervals [place] Rate: 111 P: ID: QRS: 32 QRSD: 124 T: 20 QT: 332 QTc: 451 Interpretive Statements Regular rhythm, tachycardic. Indeterminant mechanism. Probable ectopic atrial tachycardia Right bundle branch block Electronically Signed On 08-09-2021 11:19:29 PST by Bert Oquendo /[email or web address]/[email or web address]/[id number]
[2021-08-09] MEDS ORDERED: WARFARIN 2 MG TABLET PO ONE (14:00)
[2021-08-09] MEDS: ZOLPIDEM 5 MG TABLET PO SCH (22:39)
[2021-08-09] MEDS: FINASTERIDE 5 MG TABLET PO SCH (22:39)
[2021-08-09] MEDS: LORazepam 0.5 MG TABLET PO PRN (22:39)
[2021-08-09] MEDS: TAMSULOSIN 0.4 MG CAPSULE PO SCH (22:39)
[2021-08-10] MEDS: 0.9 % SODIUM CHLORIDE 10 ML SYRINGE IV SCH ×3 (04:11→21:17)
[2021-08-10] MEDS: FUROSEMIDE 40 MG/4 ML VIAL IV SCH ×2 (06:44→16:22)
[2021-08-10] MEDS: OMEPRAZOLE 20 MG CAPSULE PO SCH (07:55)
[2021-08-10 08:03] LABS: Basophils # (Auto) 0.02 K/mcL (0.00-0.30); Basophils % (Auto) 0.2 % (0.0-2.0); Eosinophils # (Auto) 0.06 K/mcL (0.00-0.70); Eosinophils % (Auto) 0.7 % (0.0-7.0); Hematocrit 28.2 % (40.1-51.0); Hemoglobin 8.6 g/dL (13.7-17.5); Lymphocytes % (Auto) 10.4 % (15.5-49.0); Mean Corpuscular HGB Conc 30.5 g/dL (31.0-36.0); Mean Platelet Volume 10.7 fL (7.4-10.4); Monocytes # (Auto) 0.42 K/mcL (0.10-0.90); Monocytes % (Auto) 4.8 % (1.0-12.0); Neutrophils % (Auto) 83.9 % (38.0-78.0); Platelet Count 175 K/mcL (140-440); RBC 3.17 M/mcL (4.63-6.08); Red Cell Distribution Width 20.5 % (11.5-14.5); WBC 8.7 K/mcL (4.5-11.0)
--- NOTE | 2021-08-10 08:04 | Internal Med Progress Note ---
SUBJECTIVE Subjective Patient information: Note initiated : 08/10/21 at 8:00 am Service Date, if different from initiated Date: [] Patient: Mitch Bustillos a 76 y/o M admitted on 08/08/21 for shortness of breath. Chief Complaint: [] Interval history: Mr. Bustillos is a 76 year old M history of CHF, COPD, atrial fibrillation, CKD IV, p/w one week history of gradual onset, gradually worsening shortness of breath. He was hospitalized in our facility earlier this month. Several medications including clonidine, Lisinopril, potassium, and amlodipine were discontinued. However, there seems to have some misunderstanding and ended up NOT TAKING ANY OF HIS MEDICATIONS including diuretics. As a results, since one week after being discharged from hospital, he had gradually worsening shortness of breath, with respiratory wheezing. He denies any cough. He denies any chest pain. He denies any fever, chills, or sweating. He denies any increasing legs swelling. He denies unintentional weight gain. He is c/o 10-20ft exertional dyspnea. He is c/o general body weakness. He is c/o orthopnea and he sleeps on a recliner. 2D echocardiogram from last visit showed good systolic functions with LVEF 60-65% with diastolic dysfunctions. BNP 3484. CXR showing bibasilar infiltrates concerning for infection or aspiration. 08/09: Afebrile overnight. Currently on 4L/min oxygen. c/o SOB. Denies cough or sputum production or wheezing. Denies chest pain. Denies fever, chills, or sweating. On Rocephin and Zithromax for pneumonia. On Lasix IV for CHF exacerbation. 08/10: Afebrile overnight. Oxygen desaturated to the 70s after he ambulated to bathroom earlier this AM. Denies increasing SOB. Denies chest pain. Denies wheezing. Denies anxiety. Rapid response called, one breathing treatment given, and patient was being placed on non-rebreather oxygen 15L/min FiO2 100%. Transferred back to PCU. Constitutional Vitals: Vital Signs Temp Pulse Resp BP Pulse Ox 37.0 C 116 H 21 120/59 87 L 08/10/21 07:22 08/10/21 07:22 08/10/21 07:22 08/10/21 07:22 08/10/21 07:22 Period Temp Pulse Resp BP Sys/Morales Pulse Ox Last 24 Hr 36.2 C-37.1 C 87-116 17-29 116-153/58-86 87-100 Intake and Output 08/09/21 08/10/21 08/10/21 21:59 05:59 13:59 Intake Total 240 640 Output Total 1525 550 350 Balance -1285 90 -350 Weight 125.872 kg Intake & Output: Intake & Output 08/09/21 08/10/21 08/10/21 21:59 05:59 13:59 Intake Total 240 640 Output Total 1525 550 350 Balance -1285 90 -350 Weight 125.872 kg Intake: Oral 240 640 Output: Void Amount 1525 550 350 Other: Urine Appearance Cloudy Clear Clear Urine Color Bright Yellow Pale Pale Urine Odor Normal Stool Size Moderate Moderate Stool Color Brown Yellow Stool Consistency Formed Normal for Patient # Voids 1 # Bowel Movements 1 1 General appearance: cooperative, no acute distress and severe distress Head Head exam: Present atraumatic and normal inspection Eye Eye exam: Present normal appearance ENT ENT exam: Present mucous membranes moist, normal exam and normal external ear exam Additional comments: non-rebreather mask in place Neck Neck exam: Present normal inspection Respiratory Respiratory exam: Present decreased breath sounds Cardiovascular Cardiovascular exam: Present irregular rhythm GI/Abdominal GI/Abdominal exam: Present normal bowel sounds Back Exam Back exam: Present normal inspection Neurological Exam Neurological exam: Present alert and oriented X3 Skin Skin exam: Present intact and warm OBJ DATA Labs CBC & Chem 7: 08/09/21 05:18 08/09/21 05:17 Labs: Abnormal Lab Results 08/09/21 08/09/21 08/09/21 05:18 05:18 05:17 WBC 13.9 H RBC 3.13 L Hgb 8.6 L Hct 28.0 L MCHC 30.7 L RDW 20.5 H MPV 10.7 H Neut % (Auto) 91.9 H Lymph % (Auto) 4.5 L Lymph # (Auto) 0.63 L Absolute Neutrophils 12.74 H PT 27.5 H INR 2.4 H BUN 37 H Creatinine 1.7 H Glucose 129 H Troponin T NT-Pro-B Natriuret Pep Procalcitonin 08/08/21 08/08/21 08/08/21 11:28 09:15 09:15 WBC RBC Hgb Hct MCHC RDW MPV Neut % (Auto) Lymph % (Auto) Lymph # (Auto) Absolute Neutrophils PT 29.4 H INR 2.6 H BUN 29 H Creatinine 1.7 H Glucose 169 H Troponin T NT-Pro-B Natriuret Pep Procalcitonin 0.15 H 08/07/21 08/07/21 08/07/21 22:25 22:24 22:24 WBC 12.7 H RBC 3.27 L Hgb 8.9 L Hct 30.2 L MCHC 29.5 L RDW 21.1 H MPV Neut % (Auto) 90.9 H Lymph % (Auto) 4.2 L Lymph # (Auto) 0.54 L Absolute Neutrophils 11.55 H PT INR BUN 24 H Creatinine 1.6 H Glucose 157 H Troponin T 0.03 H NT-Pro-B Natriuret Pep 3484.0 H Procalcitonin Meds: Medications Acetaminophen (Acetaminophen 325 Mg Tablet) 650 mg PO Q6HP PRN; Protocol PRN Reason: Per Pain Protocol/Fever > 101 Albuterol/Ipratropium (Ipratropium/Albuterol 3 Ml Ampul.Neb) 3 ml NEB Q4HRT PRN PRN Reason: Wheezing Last Admin: 08/10/21 06:50 Dose: 3 ml Documented by: Ascorbic Acid (Ascorbic Acid 500 Mg Tablet) 500 mg PO DAILY [facility] Last Admin: 08/09/21 08:48 Dose: 500 mg Documented by: Ceftriaxone Sodium (Ceftriaxone 1 Gm Vial) 1 gm IV Q24H [facility]; Protocol Last Admin: 08/09/21 08:48 Dose: 1 gm Documented by: Docusate Sodium (Docusate Sodium 100 Mg Capsule) 100 mg PO BID [facility] Last Admin: 08/09/21 22:39 Dose: 100 mg Documented by: Finasteride (Finasteride 5 Mg Tablet) 5 mg PO HS [facility] Last Admin: 08/09/21 22:39 Dose: 5 mg Documented by: Fluticasone Propionate (Fluticasone Propionate Winger.Nguyễn) 2 spray NS DAILY [facility] Last Admin: 08/09/21 08:49 Dose: Not Given Documented by: Furosemide (Furosemide 40 Mg/4 Ml Vial) 40 mg IV BIDD [facility] Last Admin: 08/10/21 06:44 Dose: 40 mg Documented by: Guaifenesin (Guaifenesin/Dextromethorphan Oral Siria) 10 ml PO Q4HP PRN PRN Reason: Cough Azithromycin 500 mg/ Dextrose 250 mls @ 250 mls/hr IV Q24H [facility]; Protocol Stop: 08/10/21 11:59 Last Infusion: 08/09/21 12:18 Dose: Infused Documented by: Iron Carb/Multivit/[place]/Folic Acid (Multivit,Ther Iron,Ca,Fa & Min 1 Tablet) 1 tab PO DAILY [facility] Last Admin: 08/09/21 08:48 Dose: 1 tab Documented by: Lactulose (Lactulose 20 Gm/30 Ml Oral.Siria) 10 gm PO DAILYP PRN PRN Reason: Constipation Lorazepam (Lorazepam 0.5 Mg Tablet) 0.25 - 0.5 mg PO DAILYP PRN PRN Reason: Anxiety Last Admin: 08/09/21 22:39 Dose: 0.5 mg Documented by: Magnesium Oxide (Magnesium Oxide 400 Mg Tablet) 400 mg PO DAILY [facility] Last Admin: 08/09/21 08:48 Dose: 400 mg Documented by: Metoprolol Succinate (Metoprolol Succinate 50 Mg Tab.Xl.24h) 50 mg PO BID [facility] Last Admin: 08/09/21 22:39 Dose: 50 mg Documented by: Metoprolol Tartrate (Metoprolol Tartrate 5 Mg/5 Ml Vial) 5 mg IV Q5M PRN PRN Reason: Tachyarrhythmias Montelukast Sodium (Montelukast 10 Mg Tablet) 10 mg PO QDAY [facility] Last Admin: 08/09/21 08:48 Dose: 10 mg Documented by: Non-Formulary Medication (Budesonide-Formoterol [Symbicort]) 2 puff INHALATION BID [facility] Omeprazole (Omeprazole 20 Mg Capsule) 40 mg PO ACB [facility] Last Admin: 08/10/21 07:55 Dose: 40 mg Documented by: Ondansetron HCl (Ondansetron 4 Mg/2 Ml Vial) 4 mg IV Q4HP PRN; Protocol PRN Reason: Nausea And Vomiting Fluticasone/Salmeterol (Fluticasone/Salmeterol 250/50 Inhaler #14) 1 puff INH BIDP PRN PRN Reason: Shortness Of Breath Senna (Sennosides 1 Tablet) 2 tab PO HSP PRN PRN Reason: Constipation Sodium Chloride (0.9 % Sodium Chloride 10 Ml Syringe) 10 ml IV Q8 [facility] Last Admin: 08/10/21 04:11 Dose: 10 ml Documented by: Tamsulosin HCl (Tamsulosin 0.4 Mg Capsule) 0.4 mg PO HS [facility] Last Admin: 08/09/21 22:39 Dose: 0.4 mg Documented by: Warfarin Sodium (Warfarin Per Pharmacy) 1 order PO UD [facility] Zolpidem Tartrate (Zolpidem 5 Mg Tablet) 5 mg PO QHS [facility] Last Admin: 08/09/21 22:39 Dose: 5 mg Documented by: A/P Assessment and plan (1) COPD (chronic obstructive pulmonary disease): Status: Chronic Qualifiers: COPD type: COPD with acute exacerbation Qualified Code(s): J44.1 - Chronic obstructive pulmonary disease with (acute) exacerbation (2) Atrial fibrillation: Status: Chronic Qualifiers: Atrial fibrillation type: longstanding persistent Qualified Code(s): I48.11 - Longstanding persistent atrial fibrillation (3) Acute exacerbation of CHF (congestive heart failure): Status: Acute (4) Community acquired bilateral lower lobe pneumonia: Status: Acute (5) Chronic anticoagulation: Status: Acute (6) BPH (benign prostatic hyperplasia): Status: Acute (7) Chronic kidney disease (CKD) stage G4/A1, severely decreased glomerular filtration rate (GFR) between 15-29 mL/min/1.73 square meter and albuminuria creatinine ratio less than 30 mg/g: Status: Acute (8) Acute and chronic respiratory failure with hypoxia: Status: Acute Narrative A/P Narrative: Assessment and Plans: 1. CHF exacerbation: Likely due to medications miscommunication Oxygen desaturated to the 70s after he ambulated to bathroom earlier this AM. Denies increasing SOB. Denies chest pain. Denies wheezing. Denies anxiety. Rapid response called, one breathing treatment given, and patient was being placed on non-rebreather oxygen 15L/min FiO2 100%. Transferred back to PCU. Strict intake and output Daily weigh 2L/day fluid restriction Head of bed elevated 2D echocardiogram from last visit showed good systolic functions with LVEF 60- 65% with diastolic dysfunctions, BNP 3484 Continue oral Metoprolol ER 50mg PO BID Lasix 40mg IV BID Hold Lisinopril for advanced CKD Physical therapy Occupational therapy 2. Bilateral lower lobes pneumonia: Procalcitonin Blood culture X2, no growth to date cbc w/ auto diff in the morning to trend WBC Supplemental oxygen therapy, see above #1 Rocephin Zithromax Tylenol PRN fever Robitussin DM PRN cough DuoNEB NEB PRN wheezing 3. COPD, stable: Supplemental oxygen therapy, see above #1 Montelukast Continue rest of bronchodilators from home regimen DuoNEB NEB PRN wheezing 4. Chronic kidney disease stage 4 with associated anemia: Lasix 40mg IV BID Hold Lisinopril for advanced CKD Avoid nephrotoxic agents CMP daily to trend kidney functions cbc w/ auto diff daily to trend H/H 5. Atrial fibrillation with RVR on Coumadin: INR goal 2-3, currently within goal Metoprolol ER 50mg PO BID Coumadin with INR for dosing adjustment as needed Lopressor IV PRN tachyarrhythmia 6. BHP: Continue Finasteride and Flomax GI ppx: continue oral PPI from home regimen DVT ppx: Coumadin Code status: DNI DNR Prognosis: guarded Disposition: inpatient PCU telemetry Time Spent With Patient Time: Total time spent is greater than 50% in coordination of care (as documented) at patient's floor/unit and/or counseling patient: Total time spent with greater than 50% in coordination of care (as documented) at patient's floor/unit and/or counseling patient:: Greater than 35 minutes
[2021-08-10 08:07] LABS: Phosphorous 2.6 mg/dL (2.5-4.5)
[2021-08-10 08:46] LABS: INR 2.5 (0.9-1.1); Prothrombin Time 28.5 sec (11.9-14.5)
[2021-08-10] MEDS: cefTRIAXone 1 GM VIAL IV SCH (09:58)
[2021-08-10] MEDS: MAGNESIUM OXIDE 400 MG TABLET PO SCH (09:58)
[2021-08-10] MEDS: ASCORBIC ACID 500 MG TABLET PO SCH (09:58)
[2021-08-10] MEDS: MONTELUKAST 10 MG TABLET PO SCH (09:58)
[2021-08-10] MEDS: MULTIVIT,THER IRON,CA,FA & MIN 1 TABLET PO SCH (09:58)
[2021-08-10] MEDS: DOCUSATE SODIUM 100 MG CAPSULE PO SCH ×2 (09:58→20:43)
[2021-08-10] MEDS: Budesonide-Formoterol [Symbicort] 160-4.5 mcg Inhaler INH SCH ×2 (10:12→20:44)
[2021-08-10] MEDS: FLUTICASONE PROPIONATE SPRAY.NAS NS SCH (10:12)
[2021-08-10 10:44] LABS: ALT/SGPT 22 U/L (<40); AST/SGOT 31 U/L (<40); Albumin 3.5 gm/dL (3.2-5.2); Albumin/Globulin Ratio 1.1 (1.0-2.3); Alkaline Phosphatase 70 U/L (39-117); Bilirubin,Total 0.5 mg/dL (0.1-1.0); Blood Urea Nitrogen 33 mg/dL (8-23); Calcium 9.1 mg/dL (8.6-10.4); Carbon Dioxide 30 mmol/L (22-30); Chloride 98 mmol/L (96-108); Globulin 3.1 gm/dL (2.2-3.7); Glomerular Filtration Rate 48; Glucose 108 mg/dL (70-105)
[2021-08-10] MEDS: AZITHROMYCIN 500 MG in DEXTROSE 5% IN WATER 250 ML IV SCH (11:00)
--- NOTE | 2021-08-10 12:02 | XRay Report ---
CLINICAL INFORMATION: Follow-up infiltrates COMPARISON: 08/07/2021 TECHNIQUE: Portable FINDINGS: Moderate cardiomegaly is unchanged. Mediastinum and pulmonary vessels are normal. Bilateral infiltrates have nearly resolved with only minimal residual in the left base. Small persistent bilateral pleural effusions noted. IMPRESSION: Complete resolution of bibasilar infiltrates since the x-ray three days ago. Interpreted and Authenticated by: Chava Kincaid 08/10/21
[2021-08-10] MEDS: METOPROLOL SUCCINATE 50 MG TAB.XL.24H PO SCH ×2 (12:37→20:43)
--- NOTE | 2021-08-10 13:54 | Internal Med Progress Note ---
SUBJECTIVE Subjective Patient information: Note initiated : 08/10/21 at 1:43 pm Service Date, if different from initiated Date: [] Patient: Mitch Bustillos 76 y/o M admitted on 08/08/21 for shortness of breath. Chief Complaint: [] Interval history: Mr. Bustillos is a 76 year old M history of CHF, COPD, atrial fibrillation, CKD IV, p/w one week history of gradual onset, gradually worsening shortness of breath. He was hospitalized in our facility earlier this month. Several medications including clonidine, Lisinopril, potassium, and amlodipine were discontinued. However, there seems to have some misunderstanding and ended up NOT TAKING ANY OF HIS MEDICATIONS including diuretics. As a results, since one week after being discharged from hospital, he had gradually worsening shortness of breath, with respiratory wheezing. He denies any cough. He denies any chest pain. He denies any fever, chills, or sweating. He denies any increasing legs swelling. He denies unintentional weight gain. He is c/o 10-20ft exertional dyspnea. He is c/o general body weakness. He is c/o orthopnea and he sleeps on a recliner. 2D echocardiogram from last visit showed good systolic functions with LVEF 60-65% with diastolic dysfunctions. BNP 3484. CXR showing bibasilar infiltrates concerning for infection or aspiration. 08/09: Afebrile overnight. Currently on 4L/min oxygen. c/o SOB. Denies cough or sputum production or wheezing. Denies chest pain. Denies fever, chills, or sweating. On Rocephin and Zithromax for pneumonia. On Lasix IV for CHF exacerbation. 08/10: Afebrile overnight. Oxygen desaturated to the 70s after he ambulated to bathroom earlier this AM. Denies increasing SOB. Denies chest pain. Denies wheezing. Denies anxiety. Rapid response called, one breathing treatment given, and patient was being placed on non-rebreather oxygen 15L/min FiO2 100%. Transferred back to PCU. Constitutional Vitals: Vital Signs Temp Pulse Resp BP Pulse Ox 98.4 F 82 26 H 144/86 92 08/10/21 12:08/10/21 11:00 08/10/21 12:08/10/21 12:01 08/10/21 12:01 Period Temp Pulse Resp BP Sys/Morales Pulse Ox Last 24 Hr 97.2 F-98.7 F 82-116 16-26 95-150/51-86 80-98 Intake and Output 08/09/21 08/10/21 08/10/21 21:59 05:59 13:59 Intake Total 240 640 250 Output Total 6991 256 4417 Balance -1285 90 -1400 Weight 125.872 kg Intake & Output: Intake & Output 08/09/21 08/10/21 08/10/21 21:59 05:59 13:59 Intake Total 240 640 250 Output Total 9893 920 0333 Balance -1285 90 -1400 Weight 125.872 kg Intake: IV 250 Zithromax 500 mg In Dextrose 5% 250 in Water 250 ml @ 250 mls/hr IV Q24H [facility] Rx#:[id number] Oral 240 640 Output: Void Amount 7803 466 5529 Other: Urine Appearance Cloudy Clear Clear Urine Color Bright Yellow Pale Bright Yellow Urine Odor Normal Normal Stool Size Moderate Moderate Stool Color Brown Yellow Stool Consistency Formed Normal for Patient # Voids 1 # Bowel Movements 1 1 OBJ DATA Labs CBC & Chem 7: 08/10/21 05:31 08/10/21 09:30 Labs: Abnormal Lab Results 08/10/21 08/10/21 08/10/21 09:30 07:57 05:31 WBC RBC 3.17 L Hgb 8.6 L Hct 28.2 L MCHC 30.5 L RDW 20.5 H MPV 10.7 H Neut % (Auto) 83.9 H Lymph % (Auto) 10.4 L Lymph # (Auto) 0.90 L Absolute Neutrophils PT 28.5 H INR 2.5 H BUN 33 H Creatinine 1.4 H Glucose 108 H Troponin T NT-Pro-B Natriuret Pep Procalcitonin 08/09/21 08/09/21 08/09/21 05:18 05:18 05:17 WBC 13.9 H RBC 3.13 L Hgb 8.6 L Hct 28.0 L MCHC 30.7 L RDW 20.5 H MPV 10.7 H Neut % (Auto) 91.9 H Lymph % (Auto) 4.5 L Lymph # (Auto) 0.63 L Absolute Neutrophils 12.74 H PT 27.5 H INR 2.4 H BUN 37 H Creatinine 1.7 H Glucose 129 H Troponin T NT-Pro-B Natriuret Pep Procalcitonin 08/08/21 08/08/21 08/08/21 11:28 09:15 09:15 WBC RBC Hgb Hct MCHC RDW MPV Neut % (Auto) Lymph % (Auto) Lymph # (Auto) Absolute Neutrophils PT 29.4 H INR 2.6 H BUN 29 H Creatinine 1.7 H Glucose 169 H Troponin T NT-Pro-B Natriuret Pep Procalcitonin 0.15 H 08/07/21 08/07/21 08/07/21 22:25 22:24 22:24 WBC 12.7 H RBC 3.27 L Hgb 8.9 L Hct 30.2 L MCHC 29.5 L RDW 21.1 H MPV Neut % (Auto) 90.9 H Lymph % (Auto) 4.2 L Lymph # (Auto) 0.54 L Absolute Neutrophils 11.55 H PT INR BUN 24 H Creatinine 1.6 H Glucose 157 H Troponin T 0.03 H NT-Pro-B Natriuret Pep 3484.0 H Procalcitonin Meds: Medications Acetaminophen (Acetaminophen 325 Mg Tablet) 650 mg PO Q6HP PRN; Protocol PRN Reason: Per Pain Protocol/Fever > 101 Albuterol/Ipratropium (Ipratropium/Albuterol 3 Ml Ampul.Neb) 3 ml NEB Q4HRT PRN PRN Reason: Wheezing Last Admin: 08/10/21 06:50 Dose: 3 ml Documented by: Ascorbic Acid (Ascorbic Acid 500 Mg Tablet) 500 mg PO DAILY [facility] Last Admin: 08/10/21 09:58 Dose: 500 mg Documented by: Ceftriaxone Sodium (Ceftriaxone 1 Gm Vial) 1 gm IV Q24H [facility]; Protocol Last Admin: 08/10/21 09:58 Dose: 1 gm Documented by: Docusate Sodium (Docusate Sodium 100 Mg Capsule) 100 mg PO BID [facility] Last Admin: 08/10/21 09:58 Dose: 100 mg Documented by: Finasteride (Finasteride 5 Mg Tablet) 5 mg PO HS [facility] Last Admin: 08/09/21 22:39 Dose: 5 mg Documented by: Furosemide (Furosemide 40 Mg/4 Ml Vial) 40 mg IV BIDD [facility] Last Admin: 08/10/21 06:44 Dose: 40 mg Documented by: Guaifenesin (Guaifenesin/Dextromethorphan Oral Siria) 10 ml PO Q4HP PRN PRN Reason: Cough Iron Carb/Multivit/[place]/Folic Acid (Multivit,Ther Iron,Ca,Fa & Min 1 Tablet) 1 tab PO DAILY [facility] Last Admin: 08/10/21 09:58 Dose: 1 tab Documented by: Lactulose (Lactulose 20 Gm/30 Ml Oral.Siria) 10 gm PO DAILYP PRN PRN Reason: Constipation Lorazepam (Lorazepam 0.5 Mg Tablet) 0.25 - 0.5 mg PO DAILYP PRN PRN Reason: Anxiety Last Admin: 08/09/21 22:39 Dose: 0.5 mg Documented by: Magnesium Oxide (Magnesium Oxide 400 Mg Tablet) 400 mg PO DAILY [facility] Last Admin: 08/10/21 09:58 Dose: 400 mg Documented by: Metoprolol Succinate (Metoprolol Succinate 50 Mg Tab.Xl.24h) 50 mg PO BID [facility] Last Admin: 08/10/21 12:37 Dose: Not Given Documented by: Metoprolol Tartrate (Metoprolol Tartrate 5 Mg/5 Ml Vial) 5 mg IV Q5M PRN PRN Reason: Tachyarrhythmias Montelukast Sodium (Montelukast 10 Mg Tablet) 10 mg PO QDAY [facility] Last Admin: 08/10/21 09:58 Dose: 10 mg Documented by: Omeprazole (Omeprazole 20 Mg Capsule) 40 mg PO ACB [facility] Last Admin: 08/10/21 07:55 Dose: 40 mg Documented by: Ondansetron HCl (Ondansetron 4 Mg/2 Ml Vial) 4 mg IV Q4HP PRN; Protocol PRN Reason: Nausea And Vomiting Budesonide- Formoterol [ Symbicort] 160-4.5 Mcg Inhaler 2 dose INH BID [facility] Last Admin: 08/10/21 10:12 Dose: Not Given Documented by: Fluticasone/Salmeterol (Fluticasone/Salmeterol 250/50 Inhaler #14) 1 puff INH BID [facility] Senna (Sennosides 1 Tablet) 2 tab PO HSP PRN PRN Reason: Constipation Sodium Chloride (0.9 % Sodium Chloride 10 Ml Syringe) 10 ml IV Q8 [facility] Last Admin: 08/10/21 04:11 Dose: 10 ml Documented by: Tamsulosin HCl (Tamsulosin 0.4 Mg Capsule) 0.4 mg PO [facility] Last Admin: 08/09/21 22:39 Dose: 0.4 mg Documented by: Warfarin Sodium (Warfarin Per Pharmacy) 1 order PO [facility] Warfarin Sodium (Warfarin 2 Mg Tablet) 4 mg PO ONCE@1400 ONE Stop: 08/10/21 14:01 Zolpidem Tartrate (Zolpidem 5 Mg Tablet) 5 mg PO QHS [facility] Last Admin: 08/09/21 22:39 Dose: 5 mg Documented by: A/P Narrative A/P Narrative: A: *acute on chronic diastoilic CHF: Likely due to medications miscommunication -echo from early July with good EF, Diastolic dysfunction *b/l PNA: -Blood culture X2, no growth to date *Acute hypoxic respiratory failure: 2/2 above *COPD, stable( ): montelukast, Continue rest of bronchodilators from home regimen, DuoNEB NEB PRN wheezing *CKD IV: *Anemia, chronic *Atrial fibrillation w/RVR: on Coumadin *CAD w/cabg: follow with cardiology *BHP: Continue Finasteride and Flomax *h/o bladder cancer: follows with Dr. Bishop *Anxiety: *GERD: P: -Rocephin / Zithromax -2L/day fluid restriction -Head of bed elevated -Lasix 40mg IV BID -Continue oral Metoprolol ER 50mg PO BID -Hold Lisinopril for advanced CKD - -pt/ot -follow-up with cardiology outpatient -ppx: Coumadin per pharmacy/ home ppi Code status: DNI DNR Prognosis: guarded Time Spent With Patient Time: Total time spent is greater than 50% in coordination of care (as documented) at patient's floor/unit and/or counseling patient:
[2021-08-10] MEDS ORDERED: WARFARIN 2 MG TABLET PO ONE (14:00)
[2021-08-10] MEDS: FINASTERIDE 5 MG TABLET PO SCH (20:43)
[2021-08-10] MEDS: ZOLPIDEM 5 MG TABLET PO SCH (20:43)
[2021-08-10] MEDS: TAMSULOSIN 0.4 MG CAPSULE PO SCH (20:43)
[2021-08-10] MEDS: FLUTICASONE/SALMETEROL 250/50 INHALER #14 INH SCH (20:44)
[2021-08-11] MEDS: 0.9 % SODIUM CHLORIDE 10 ML SYRINGE IV SCH (05:31)
[2021-08-11 07:26] LABS: INR 2.5 (0.9-1.1); Prothrombin Time 28.6 sec (11.9-14.5)
[2021-08-11 07:36] LABS: ALT/SGPT 22 U/L (<40); AST/SGOT 28 U/L (<40); Albumin 3.1 gm/dL (3.2-5.2); Albumin/Globulin Ratio 1.1 (1.0-2.3); Alkaline Phosphatase 65 U/L (39-117); Bilirubin,Direct < 0.2 mg/dL (0-0.3); Bilirubin,Total 0.4 mg/dL (0.1-1.0); Blood Urea Nitrogen 30 mg/dL (8-23); Calcium 8.8 mg/dL (8.6-10.4); Carbon Dioxide 31 mmol/L (22-30); Chloride 95 mmol/L (96-108); Globulin 2.8 gm/dL (2.2-3.7); Glomerular Filtration Rate 44; Glucose 119 mg/dL (70-105); Lactate Dehydrogenase 240 U/L (135-225); Phosphorous 3.4 mg/dL (2.5-4.5); Triglycerides 101 mg/dL (<150); Uric Acid 8.9 mg/dL (2.5-8.0)
[2021-08-11] MEDS: DOCUSATE SODIUM 100 MG CAPSULE PO SCH (08:08)
[2021-08-11] MEDS: METOPROLOL SUCCINATE 50 MG TAB.XL.24H PO SCH (08:08)
[2021-08-11] MEDS: MAGNESIUM OXIDE 400 MG TABLET PO SCH (08:08)
[2021-08-11] MEDS: FUROSEMIDE 40 MG/4 ML VIAL IV SCH (08:08)
[2021-08-11] MEDS: MONTELUKAST 10 MG TABLET PO SCH (08:08)
[2021-08-11] MEDS: OMEPRAZOLE 20 MG CAPSULE PO SCH (08:08)
[2021-08-11] MEDS: MULTIVIT,THER IRON,CA,FA & MIN 1 TABLET PO SCH (08:08)
[2021-08-11] MEDS: ASCORBIC ACID 500 MG TABLET PO SCH (08:08)
[2021-08-11] MEDS: FLUTICASONE/SALMETEROL 250/50 INHALER #14 INH SCH (08:09)
[2021-08-11] MEDS ORDERED: POTASSIUM CHLORIDE 20 MEQ TABLET PO ONE (08:22)
[2021-08-11] MEDS ORDERED: ALBUMIN HUMAN 12.5 GM/50 ML BAG IV ONE (08:23)
[2021-08-11] MEDS ORDERED: FUROSEMIDE 40 MG/4 ML VIAL IV ONE (08:23)
--- NOTE | 2021-08-11 08:25 | Internal Med Progress Note ---
SUBJECTIVE Subjective Patient information: Note initiated : 08/11/21 at 8:19 am Service Date, if different from initiated Date: [] Patient: Mitch Bustillos a 76 y/o M admitted on 08/08/21 for shortness of breath. Chief Complaint: [] Interval history: Mr. Bustillos is a 76 year old M history of CHF, COPD, atrial fibrillation, CKD IV, p/w one week history of gradual onset, gradually worsening shortness of breath. He was hospitalized in our facility earlier this month. Several medications including clonidine, Lisinopril, potassium, and amlodipine were discontinued. However, there seems to have some misunderstanding and ended up NOT TAKING ANY OF HIS MEDICATIONS including diuretics. As a results, since one week after being discharged from hospital, he had gradually worsening shortness of breath, with respiratory wheezing. He denies any cough. He denies any chest pain. He denies any fever, chills, or sweating. He denies any increasing legs swelling. He denies unintentional weight gain. He is c/o 10-20ft exertional dyspnea. He is c/o general body weakness. He is c/o orthopnea and he sleeps on a recliner. 2D echocardiogram from last visit showed good systolic functions with LVEF 60-65% with diastolic dysfunctions. BNP 3484. CXR showing bibasilar infiltrates concerning for infection or aspiration. 08/09: Afebrile overnight. Currently on 4L/min oxygen. c/o SOB. Denies cough or sputum production or wheezing. Denies chest pain. Denies fever, chills, or sweating. On Rocephin and Zithromax for pneumonia. On Lasix IV for CHF exacerbation. 08/10: Afebrile overnight. Oxygen desaturated to the 70s after he ambulated to bathroom earlier this AM. Denies increasing SOB. Denies chest pain. Denies wheezing. Denies anxiety. Rapid response called, one breathing treatment given, and patient was being placed on non-rebreather oxygen 15L/min FiO2 100%. Transferred back to PCU. 08/11 Patient feeling much better. Requiring less oxygen than his home regimen. Patient adamant about going home. Constitutional Vitals: Vital Signs Temp Pulse Resp BP Pulse Ox 97.6 F 82 20 156/69 98 08/11/21 08:00 08/10/21 11:00 08/11/21 08:00 08/11/21 08:00 08/11/21 08:00 Period Temp Pulse Resp BP Sys/Morales Pulse Ox Last 24 Hr 97.6 F-98.4 F 82-86 16-26 102-156/44-114 91-98 Intake and Output 08/10/21 08/11/21 08/11/21 21:59 05:59 13:59 Intake Total 360 480 Output Total 1400 400 Balance -1040 80 Weight 123.06 kg Intake & Output: Intake & Output 08/10/21 08/11/21 08/11/21 21:59 05:59 13:59 Intake Total 360 480 Output Total 1400 400 Balance -1040 80 Weight 123.06 kg Intake: Oral 360 480 Output: Urine Catheter Amount 100 Void Amount 1400 300 Other: Urine Appearance Clear Clear Urine Color Pale Dark Yellow Urine Odor Normal Stool Size Moderate Stool Color Brown Stool Consistency Formed # Bowel Movements 1 # of times incontinent of 0 Bowels OBJ DATA Labs CBC & Chem 7: 08/10/21 05:31 08/11/21 05:09 Labs: Abnormal Lab Results 08/11/21 08/11/21 08/10/21 05:09 05:09 09:30 WBC RBC Hgb Hct MCHC RDW MPV Neut % (Auto) Lymph % (Auto) Lymph # (Auto) Absolute Neutrophils PT 28.6 H INR 2.5 H Potassium 3.2 L Chloride 95 L Carbon Dioxide 31 H BUN 30 H 33 H Creatinine 1.5 H 1.4 H Glucose 119 H 108 H Uric Acid 8.9 H Lactate Dehydrogenase 240 H Albumin 3.1 L Procalcitonin 08/10/21 08/10/21 08/09/21 07:57 05:31 05:18 WBC RBC 3.17 L Hgb 8.6 L Hct 28.2 L MCHC 30.5 L RDW 20.5 H MPV 10.7 H Neut % (Auto) 83.9 H Lymph % (Auto) 10.4 L Lymph # (Auto) 0.90 L Absolute Neutrophils PT 28.5 H 27.5 H INR 2.5 H 2.4 H Potassium Chloride Carbon Dioxide BUN Creatinine Glucose Uric Acid Lactate Dehydrogenase Albumin Procalcitonin 08/09/21 08/09/21 08/08/21 05:18 05:17 11:28 WBC 13.9 H RBC 3.13 L Hgb 8.6 L Hct 28.0 L MCHC 30.7 L RDW 20.5 H MPV 10.7 H Neut % (Auto) 91.9 H Lymph % (Auto) 4.5 L Lymph # (Auto) 0.63 L Absolute Neutrophils 12.74 H PT 29.4 H INR 2.6 H Potassium Chloride Carbon Dioxide BUN 37 H Creatinine 1.7 H Glucose 129 H Uric Acid Lactate Dehydrogenase Albumin Procalcitonin 08/08/21 08/08/21 09:15 09:15 WBC RBC Hgb Hct MCHC RDW MPV Neut % (Auto) Lymph % (Auto) Lymph # (Auto) Absolute Neutrophils PT INR Potassium Chloride Carbon Dioxide BUN 29 H Creatinine 1.7 H Glucose 169 H Uric Acid Lactate Dehydrogenase Albumin Procalcitonin 0.15 H Meds: Medications Acetaminophen (Acetaminophen 325 Mg Tablet) 650 mg PO Q6HP PRN; Protocol PRN Reason: Per Pain Protocol/Fever > 101 Albuterol/Ipratropium (Ipratropium/Albuterol 3 Ml Ampul.Neb) 3 ml NEB Q4HRT PRN PRN Reason: Wheezing Last Admin: 08/10/21 06:50 Dose: 3 ml Documented by: Ascorbic Acid (Ascorbic Acid 500 Mg Tablet) 500 mg PO DAILY [facility] Last Admin: 08/11/21 08:08 Dose: 500 mg Documented by: Ceftriaxone Sodium (Ceftriaxone 1 Gm Vial) 1 gm IV Q24H DAVID; Protocol Last Admin: 08/10/21 09:58 Dose: 1 gm Documented by: Docusate Sodium (Docusate Sodium 100 Mg Capsule) 100 mg PO BID [facility] Last Admin: 08/11/21 08:08 Dose: 100 mg Documented by: Finasteride (Finasteride 5 Mg Tablet) 5 mg PO HS [facility] Last Admin: 08/10/21 20:43 Dose: 5 mg Documented by: Furosemide (Furosemide 40 Mg/4 Ml Vial) 40 mg IV BIDD [facility] Last Admin: 08/11/21 08:08 Dose: 40 mg Documented by: Guaifenesin (Guaifenesin/Dextromethorphan Oral Siria) 10 ml PO Q4HP PRN PRN Reason: Cough Iron Carb/Multivit/Suit Attendant/Folic Acid (Multivit,Ther Iron,Ca,Fa & Min 1 Tablet) 1 tab PO DAILY [facility] Last Admin: 08/11/21 08:08 Dose: 1 tab Documented by: Lactulose (Lactulose 20 Gm/30 Ml Oral.Siria) 10 gm PO DAILYP PRN PRN Reason: Constipation Lorazepam (Lorazepam 0.5 Mg Tablet) 0.25 - 0.5 mg PO DAILYP PRN PRN Reason: Anxiety Last Admin: 08/09/21 22:39 Dose: 0.5 mg Documented by: Magnesium Oxide (Magnesium Oxide 400 Mg Tablet) 400 mg PO DAILY [facility] Last Admin: 08/11/21 08:08 Dose: 400 mg Documented by: Metoprolol Succinate (Metoprolol Succinate 50 Mg Tab.Xl.24h) 50 mg PO BID [facility] Last Admin: 08/11/21 08:08 Dose: 50 mg Documented by: Metoprolol Tartrate (Metoprolol Tartrate 5 Mg/5 Ml Vial) 5 mg IV Q5M PRN PRN Reason: Tachyarrhythmias Montelukast Sodium (Montelukast 10 Mg Tablet) 10 mg PO QDAY [facility] Last Admin: 08/11/21 08:08 Dose: 10 mg Documented by: Omeprazole (Omeprazole 20 Mg Capsule) 40 mg PO ACB [facility] Last Admin: 08/11/21 08:08 Dose: 40 mg Documented by: Ondansetron HCl (Ondansetron 4 Mg/2 Ml Vial) 4 mg IV Q4HP PRN; Protocol PRN Reason: Nausea And Vomiting Budesonide- Formoterol [ Symbicort] 160-4.5 Mcg Inhaler 2 dose INH BID [facility] Last Admin: 08/10/21 20:44 Dose: Not Given Documented by: Fluticasone/Salmeterol (Fluticasone/Salmeterol 250/50 Inhaler #14) 1 puff INH BID [facility] Last Admin: 08/11/21 08:09 Dose: 1 puff Documented by: Senna (Sennosides 1 Tablet) 2 tab PO HSP PRN PRN Reason: Constipation Sodium Chloride (0.9 % Sodium Chloride 10 Ml Syringe) 10 ml IV Q8 [facility] Last Admin: 08/11/21 05:31 Dose: 10 ml Documented by: Tamsulosin HCl (Tamsulosin 0.4 Mg Capsule) 0.4 mg PO HS [facility] Last Admin: 08/10/21 20:43 Dose: 0.4 mg Documented by: Warfarin Sodium (Warfarin Per Pharmacy) 1 order PO [facility] [place]farin Sodium (Warfarin 2 Mg Tablet) 4 mg PO ONCE@1400 ONE Stop: 08/11/21 14:01 Zolpidem Tartrate (Zolpidem 5 Mg Tablet) 5 mg PO QHS [facility] Last Admin: 08/10/21 20:43 Dose: 5 mg Documented by: A/P Narrative A/P Narrative: A: *acute on chronic diastoilic CHF: Likely due to medications miscommunication -echo from early July with good EF, Diastolic dysfunction -good uop -cxr improved *b/l PNA: -Blood culture X2, no growth to date -leukocytosis resolved *Acute hypoxic respiratory failure: 2/2 above -on 2L NC *COPD, stable(on 3L@home): montelukast, Continue rest of bronchodilators from home regimen, DuoNEB NEB PRN wheezing *CKD IV: *Anemia, chronic *Atrial fibrillation w/RVR: on Coumadin *CAD w/cabg: follow with cardiology *BHP: Continue Finasteride and Flomax *h/o bladder cancer: follows with Dr. Bishop *Anxiety: *GERD: P: -Rocephin / Zithromax -2L/day fluid restriction -Head of bed elevated -hold lasix after AM dose -Continue oral Metoprolol ER 50mg PO BID -Hold Lisinopril for advanced CKD -wean O2 -pt/ot -follow-up with cardiology outpatient -f/u with urology outpt -ppx: Coumadin per pharmacy/ home ppi Code status: DNI DNR Prognosis: guarded Time Spent With Patient Time: Total time spent is greater than 50% in coordination of care (as documented) at patient's floor/unit and/or counseling patient:
[2021-08-11] MEDS ORDERED: FUROSEMIDE 40 MG TABLET PO ONE (10:12)
[2021-08-11] MEDS ORDERED: cefTRIAXone 1 GM VIAL IM ONE (10:13)
--- NOTE | 2021-08-11 10:13 | Discharge Summary ---
Discharge Provider Provider Patient information: Note initiated : 08/11/21 at 10:12 am Service Date, if different from initiated Date: [] Patient: Mitch Bustillos 76 y/o M admitted on 08/08/21 for shortness of breath. Chief Complaint: [] Date of admission: 08/08/21 01:15 Discharge date: 08/11/21 Primary care physician: Mynor Carbajal MD Consults: 08/08/21 Consult to Physician [CONS] Stat Comment: Consulting Provider: Donn Wood Reason For Exam: Physician to Consult Discharge Meds Discharge Medications Home Medications Triple Magnesium Complex 400 mg PO QDAY 08/08/21 [History Confirmed 08/08/21 Last Taken Unknown] ascorbate calcium (vitamin C) 500 mg tablet 500 mg PO DAILY 08/08/21 [History Confirmed 08/08/21 Last Taken Unknown] budesonide-formoterol HFA 160 mcg-4.5 mcg/actuation aerosol inhaler (Symbicort) 2 puff INHALATION BID #10.2 g 08/08/21 [Rx Confirmed 08/09/21 Last Taken Unknown] finasteride 5 mg tablet 5 mg PO QDAY 08/08/21 [History Confirmed 08/08/21 Last Taken Unknown] fluticasone 250 mcg-salmeterol 50 mcg/dose blistr powdr for inhalation 1 inh INHALATION BIDP PRN 08/08/21 [History Confirmed 08/08/21 Last Taken Unknown] fluticasone propionate 50 mcg/actuation nasal spray,suspension 2 spray INTRANASAL DAILY 08/08/21 [History Confirmed 08/08/21 Last Taken Unknown] furosemide 40 mg tablet 40 mg PO QAM 08/08/21 [History Confirmed 08/08/21 Last Taken Unknown] lorazepam 0.5 mg tablet 0.25 - 0.5 mg PO PRN PRN 08/08/21 [History Confirmed 08/08/21 Last Taken Unknown] metoprolol succinate 50 mg tablet,extended release 24 hr 50 mg PO BID 08/08/21 [History Confirmed 08/08/21 Last Taken Unknown] montelukast 10 mg tablet 10 mg PO QDAY 08/08/21 [History Confirmed 08/08/21 Last Taken Unknown] multivitamin with minerals-folic acid 0.4 mg tablet 1 tab PO DAILY 08/08/21 [History Confirmed 08/08/21 Last Taken Unknown] omeprazole 40 mg capsule,delayed release 40 mg PO QDAY 08/08/21 [History Confirmed 08/08/21 Last Taken Unknown] tamsulosin 0.4 mg capsule 0.4 mg PO HS 08/08/21 [History Confirmed 08/08/21 Last Taken Unknown] warfarin 4 mg tablet 4 mg PO QDAY 08/08/21 [History Confirmed 08/08/21 Last Taken Unknown] zolpidem 5 mg tablet 5 mg PO QHS 08/08/21 [History Confirmed 08/08/21 Last Taken Unknown] cefdinir 300 mg capsule 300 mg PO BID #5 cap 08/11/21 [Rx Last Taken Unknown] COURSE Hospital Course Hospital course: Mr. Bustillos is a 76 year old M history of CHF, COPD, atrial fibrillation, CKD IV, p/w one week history of gradual onset, gradually worsening shortness of breath. He was hospitalized in our facility earlier this month. Several medications including clonidine, Lisinopril, potassium, and amlodipine were discontinued. However, there seems to have some misunderstanding and ended up NOT TAKING ANY OF HIS MEDICATIONS including diuretics. As a results, since one week after being discharged from hospital, he had gradually worsening shortness of breath, with respiratory wheezing. He denies any cough. He denies any chest pain. He denies any fever, chills, or sweating. He denies any increasing legs swelling. He denies unintentional weight gain. He is c/o 10-20ft exertional dyspnea. He is c/o general body weakness. He is c/o orthopnea and he sleeps on a recliner. 2D echocardiogram from last visit showed good systolic functions with LVEF 60-65% with diastolic dysfunctions. BNP 3484. CXR showing bibasilar infiltrates concerning for infection or aspiration. 08/09: Afebrile overnight. Currently on 4L/min oxygen. c/o SOB. Denies cough or sputum production or wheezing. Denies chest pain. Denies fever, chills, or sweating. On Rocephin and Zithromax for pneumonia. On Lasix IV for CHF exacerbation. 08/10: Afebrile overnight. Oxygen desaturated to the 70s after he ambulated to bathroom earlier this AM. Denies increasing SOB. Denies chest pain. Denies wheezing. Denies anxiety. Rapid response called, one breathing treatment given, and patient was being placed on non-rebreather oxygen 15L/min FiO2 100%. Transferred back to PCU. 08/11 Patient feeling much better. Requiring less oxygen than his home regimen. Patient adamant about going home. A: *acute on chronic diastoilic CHF: Likely due to medications miscommunication -echo from early July with good EF, Diastolic dysfunction -good uop -cxr improved *suspected b/l PNA: -Blood culture X2, no growth to date -leukocytosis resolved *Acute hypoxic respiratory failure: 2/2 above -on 2L NC *COPD, stable(3L@home): montelukast, Continue rest of bronchodilators from home regimen, DuoNEB NEB PRN wheezing *CKD IV: *Anemia, chronic *Atrial fibrillation w/RVR: on Coumadin *CAD w/cabg: follow with cardiology *BHP: Continue Finasteride and Flomax *h/o bladder cancer: follows with Dr. Bishop *Anxiety: *GERD: Discharge diagnosis: Acute on chronic diastolic heart failure suspected pneumonia Secondary discharge diagnosis: Acute hypoxic respite failure COPD chronic kidney disease anemia A. fib CAD BPH bladder cancer Time Spent with Patient Time attestation: Total time spent providing and/or coordinating discharge services: Time spent: Greater than 30 minutes EXAM Constitutional Vitals: Temp Pulse Resp BP Pulse Ox 97.6 F 82 20 156/69 94 08/11/21 08:00 08/10/21 11:00 08/11/21 08:00 08/11/21 08:04 08/11/21 08:04 Discharge Data Data Completed and Pending Labs on day of discharge: Labs from last 24 hours 08/11/21 08/11/21 08/10/21 05:09 05:09 09:30 PT 28.6 H INR 2.5 H Sodium 139 140 Potassium 3.2 L 3.5 Chloride 95 L 98 Carbon Dioxide 31 H 30 Anion Gap 13.0 12.0 BUN 30 H 33 H Creatinine 1.5 H 1.4 H GFR Calculation 44 48 Glucose 119 H 108 H Uric Acid 8.9 H Calcium 8.8 9.1 Phosphorus 3.4 Magnesium 2.0 Total Bilirubin 0.4 0.5 Direct Bilirubin < 0.2 GGT 38 AST 28 31 ALT 22 22 Alkaline Phosphatase 65 70 Lactate Dehydrogenase 240 H Total Protein 5.9 6.6 Albumin 3.1 L 3.5 Globulin 2.8 3.1 Albumin/Globulin Ratio 1.1 1.1 Triglycerides 101 Preliminary micro results at discharge 08/08/21 09:40 Blood Culture - Preliminary Blood 08/08/21 09:35 Blood Culture - Preliminary Blood Discharge Plan Patient/Caregiver Discharge Instructions Activity: increase activity as tolerated Diet: Cardiac Activity Restrictions/Additional Instructions: Referral to see cardiology in 1 to 2 weeks for CHF, would like to see [facility]. Follow-up with urology, Dr. Bishop. Prescriptions: New cefdinir 300 mg capsule 300 mg PO BID Qty: 5 0RF Continued budesonide-formoterol [Symbicort] 160-4.5 mcg/actuation HFA aerosol inhaler 2 puff inhalation BID Qty: 10.2 5RF furosemide 40 mg tablet 40 mg PO QAM 0RF fluticasone propion-salmeterol 250-50 mcg/dose blister with device 1 inh INHALATION BIDP PRN (Reason: SOB) 0RF metoprolol succinate 50 mg tablet extended release 24 hr 50 mg PO BID 0RF omeprazole 40 mg capsule,delayed release(DR/EC) 40 mg PO QDAY 0RF warfarin 4 mg Tablet 4 mg PO QDAY 0RF Rx Instructions: Stop for 1 week prior to bladder surgery lorazepam 0.5 mg tablet 0.25 - 0.5 mg PO PRN PRN (Reason: Anxiety) 0RF tamsulosin 0.4 mg capsule 0.4 mg PO HS 0RF ascorbate calcium (vitamin C) 500 mg Tablet 500 mg PO DAILY 0RF montelukast 10 mg tablet 10 mg PO QDAY 0RF zolpidem 5 mg tablet 5 mg PO QHS 0RF fluticasone propionate 50 mcg/actuation spray,suspension 2 spray INTRANASAL DAILY 0RF finasteride 5 mg tablet 5 mg PO QDAY 0RF multivit with min-folic acid 0.4 mg Tablet 1 tab PO DAILY 0RF Triple Magnesium Complex 400 mg PO QDAY 0RF Follow Up Plan Follow up with: Mynor Carbajal MD [Primary Care Provider] - Patient Disposition: Home Health Service Prognosis: Undetermined Rehab Potential: Fair Overall status at discharge: patient is progressing back to baseline Discharge Orders: Discharge Order (Routine); Ordered 08/11/21 Ordered By: Brad Soto
[2021-08-11] MEDS: cefTRIAXone 1 GM VIAL IV SCH (11:53)
[2021-08-11] MEDS ORDERED: WARFARIN 2 MG TABLET PO ONE (14:00)
--- NOTE | 2021-08-12 10:15 | EKG ---
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
--- NOTE | 2021-08-12 10:15 | EKG ---
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
== END 2021-08-11 12:50 | disposition home health service (06) | DRG 291 ==
LOC: ED 22:01 → ICU 08-08 01:15 → MEDSUR 08-09 12:31 → ICU 08-10 07:32
PROVIDERS: ADMIT Internal Medicine; ATTEND Internal Medicine